=== PATIENT | female | born 1995 | race Caucasian/White ===

== ENCOUNTER 2019-07-10 08:59 | Observation (INO) | payer OTHER, SELFPAY ==
[2019-07-10] VITALS (22 sets, daily range): BP systolic 84–105; BP diastolic 47–64; PULSE 63–90; RESP 16; TEMP 36.6; O2SAT 92–100; BMI 20.2
--- NOTE | 2019-07-10 09:35 | OBADM ---
This patient, Marco Antonio Osman, admitted to the OB room 117 at 0859 for observation for c/o shortness of breath, increased heart rate and dizziness at work. Patient/family oriented to hospital policies and general routines including ID bracelet, bed and alarms, visiting hours, pain management, procedures, bathroom and other care routines, personal items, smoking policy, room service/diet, and visiting hours. Patient/Family are encouraged to report perceived risks to care and to ask questions if they do not understand what they are told or what they should do.
[2019-07-10] MEDS: ONDANSETRON HCL ODT 4 MG TABLET PO (10:47)
--- NOTE | 2019-07-10 10:55 | PM.OBTRLD ---
OB - Triage/Final Diagnosis Visit Information Date of evaluation: 07/10/19 Reason for evaluation: other (tachycardia) Evaluation Vital signs: Vital Signs - 24 hr 07/10/19 09:25 07/10/19 09:27 07/10/19 09:32 Pulse Rate 80 Blood Pressure 84/54 L Pulse Oximetry 99 99 07/10/19 09:37 07/10/19 09:42 07/10/19 09:47 Pulse Rate Blood Pressure Pulse Oximetry 97 98 99 07/10/19 09:52 07/10/19 09:57 07/10/19 10:00 Pulse Rate 82 Blood Pressure 85/47 L Pulse Oximetry 100 100 07/10/19 10:02 07/10/19 10:07 07/10/19 10:12 Pulse Rate Blood Pressure Pulse Oximetry 100 100 100 07/10/19 10:17 07/10/19 10:22 07/10/19 10:27 Pulse Rate Blood Pressure Pulse Oximetry 100 100 100 07/10/19 10:32 07/10/19 10:36 07/10/19 10:37 Pulse Rate Blood Pressure Pulse Oximetry 100 92 100 07/10/19 10:38 07/10/19 10:43 07/10/19 10:48 Pulse Rate 80 Blood Pressure 105/64 Pulse Oximetry 100 100 100
[2019-07-10 11:09] LABS: Influenza Control Positive
== END 2019-07-10 11:30 | disposition home or self-care (01) ==
PROVIDERS: Admitting Provider Obstetrics & Gynecology; PCP Internal Medicine; Visit Provider Obstetrics & Gynecology
DX: O26.892 Other specified pregnancy related conditions, second trimester (principal); R00.0 Tachycardia, unspecified; Z3A.22 22 weeks gestation of pregnancy
CPT/HCPCS: 87804; A9270; G0378; G0379

== ENCOUNTER 2019-09-11 10:11 | Observation (INO) | payer OTHER, SELFPAY ==
[2019-09-11 11:04] VITALS: BP 99/62; PULSE 77
--- NOTE | 2019-09-11 11:04 | PC.NURSE ---
Contractions noted on NST. Pt states she started having contractions yesterday. Did have intercourse last night. Pt up to void and water and juice brought in to orally hydrate.
--- NOTE | 2019-09-11 12:23 | PC.NURSE ---
Dr. Loulou Hernadez returned page and informed of contractions on NST that initially seemed to improve with oral hydration and laying on side. Pt states her contractions started yesterday. Did have intercourse last night. states he just saw her in the office this morning and pt had an ultrasound with good cervical length. Order received for [place]. NO SVE to be done since cervix was long on U/S.
[2019-09-11 12:26] VITALS: BP 95/61; PULSE 83
[2019-09-11 12:42] VITALS: BP 103/64; PULSE 79
[2019-09-11] MEDS: TERBUTALINE SULFATE 1 MG/ML VIAL 0.25 MG SUB-Q (12:43)
[2019-09-11 12:45] VITALS: BMI 23.3
--- NOTE | 2019-09-11 12:45 | OBADM ---
This patient, Marco Antonio Osman, admitted to the OB room 119 at 1011 for observation due to unresolved contractions during NST. Patient/family oriented to hospital policies and general routines including ID bracelet, bed and alarms, visiting hours, pain management, procedures, bathroom and other care routines, personal items, smoking policy, room service/diet, and visiting hours. Patient/Family are encouraged to report perceived risks to care and to ask questions if they do not understand what they are told or what they should do.
[2019-09-11 13:01] VITALS: BP 124/67; PULSE 117
[2019-09-11 14:37] VITALS: BP 94/50; PULSE 99
[2019-09-11 15:01] VITALS: BP 93/46; PULSE 95
[2019-09-11 15:06] LABS: Add Urine Microscopic? YES; Appearance Urine Clear (Clear); Bacteria Urine Trace /hpf; Bilirubin Urine Negative (Negative); Blood Urine Negative (Negative); Color Urine Straw (Yellow); Glucose Urine UA Negative (Negative); Ketones Urine Trace mg/dL (Negative); Leukocyte Esterase Ur Negative LEU/UL (Negative); Mucus Urine Rare /lpf; Nitrate Urine Negative (Negative); Protein Urine Negative (Negative); RBC Urine 0-2 /hpf (0-2); Specific Grav Ur 1.006 (1.001-1.035); Squamous Epithelial Cell Urine Rare /hpf (Few); Urobilinogen Urine Negative mg/dL (<2.0); WBC Urine 0-3 /hpf
--- NOTE | 2019-09-16 13:24 | PM.OBTRLD ---
OB - Triage/Final Diagnosis Visit Information Reason for evaluation: threatened labor Evaluation Laboratory results: Laboratory Tests 09/11/19 14:44 Urine Color Straw Urine Appearance Clear Urine pH 6.0 Ur Specific [place] 1.006 Urine Protein Negative Urine Glucose (UA) Negative Urine Ketones Trace Ur Blood (Man) Negative Urine Nitrate Negative Urine Bilirubin Negative Urine Urobilinogen Negative Leukocyte Esterase Rfl Negative Urine RBC 0-2 Urine WBC 0-3 Ur Squamous Epith Cells Rare Urine Bacteria Trace Urine Mucus Rare
== END 2019-09-11 15:40 | disposition home or self-care (01) ==
PROVIDERS: Admitting Provider Obstetrics & Gynecology; PCP Internal Medicine; Visit Provider Obstetrics & Gynecology
DX: O47.03 False labor before 37 completed weeks of gestation, third trimester (principal); Z3A.33 33 weeks gestation of pregnancy
CPT/HCPCS: 81001; 96372; G0378; G0379; J3105

== ENCOUNTER 2019-09-14 20:40 | Observation (INO) | payer OTHER, SELFPAY ==
--- NOTE | 2019-09-14 20:40 | OBADM ---
This patient, Marco Antonio Osman, admitted to the OB room OB Post 116 for observation. Patient/family oriented to hospital policies and general routines including ID bracelet, bed and alarms, visiting hours, pain management, procedures, bathroom and other care routines, personal items, smoking policy, room service/diet, and visiting hours. Patient/Family are encouraged to report perceived risks to care and to ask questions if they do not understand what they are told or what they should do.
[2019-09-14 21:03] VITALS: BP 117/78; PULSE 98
[2019-09-14 21:15] VITALS: BP 107/68; PULSE 94
[2019-09-14 21:30] VITALS: BP 113/65; PULSE 88
[2019-09-14] MEDS: BETAMETHASONE SOD PHOS/ACETATE 30 MG/5 ML VIAL 12 MG IM (21:36)
[2019-09-14] MEDS: NIFEdipine 10 MG CAPSULE 20 MG PO (21:36)
[2019-09-14 21:45] VITALS: BP 112/67; PULSE 101; BMI 24.5
[2019-09-14] MEDS: LACTATED RINGERS 1,000 ML 999 ML IV CONT (21:56)
[2019-09-14 22:28] LABS: Fetal Fibronectin Negative
--- NOTE | 2019-09-16 10:40 | PM.OBTRLD ---
OB - Triage/Final Diagnosis Visit Information Date of evaluation: 09/14/19 Reason for evaluation: threatened labor Evaluation Cervical dilation (cm): 1 Cervical effacement (%): 0 Laboratory results: Laboratory Tests 09/14/19 21:35 Fibronectin Negative
== END 2019-09-14 23:00 | disposition home or self-care (01) ==
PROVIDERS: Admitting Provider Student in an Organized Health Care Education/Training Program; PCP Internal Medicine; Visit Provider Student in an Organized Health Care Education/Training Program
DX: O47.9 False labor, unspecified (principal); Z3A.00 Weeks of gestation of pregnancy not specified
CPT/HCPCS: 82731; 84112; 96360; 96372; A9270; G0378; G0379; J0702; J7120

== ENCOUNTER 2019-09-15 22:00 | Observation (INO) | payer OTHER, SELFPAY ==
[2019-09-15] MEDS: BETAMETHASONE SOD PHOS/ACETATE 30 MG/5 ML VIAL 12 MG IM (21:50)
[2019-09-15 22:10] VITALS: BP 99/52; PULSE 96
[2019-09-15 22:16] VITALS: BP 112/53; PULSE 103
--- NOTE | 2019-09-15 22:26 | OBADM ---
This patient, Marco Antonio Osman, admitted to the OB room Labor/Delivery/Recovery 118 for observation. Patient/family oriented to hospital policies and general routines including ID bracelet, bed and alarms, visiting hours, pain management, procedures, bathroom and other care routines, personal items, smoking policy, room service/diet, and visiting hours. Patient/Family are encouraged to report perceived risks to care and to ask questions if they do not understand what they are told or what they should do.
[2019-09-15 22:30] VITALS: TEMP 36.8
[2019-09-15] MEDS: NIFEdipine 10 MG CAPSULE 20 MG PO (22:59)
[2019-09-15 23:00] VITALS: BMI 24.5
[2019-09-16 00:11] VITALS: BP 79/42; PULSE 105
[2019-09-16 00:13] VITALS: BP 91/52; PULSE 100
--- NOTE | 2019-09-22 14:58 | PM.OBTRLD ---
OB - Triage/Final Diagnosis Visit Information Reason for evaluation: threatened labor
--- NOTE | 2019-09-26 11:04 | PM.OBTRLD ---
OB - Triage/Final Diagnosis Visit Information Reason for evaluation: threatened labor
== END 2019-09-16 00:30 | disposition home or self-care (01) ==
LOC: ANHOBOP 22:02 → ANHLDR 22:03
PROVIDERS: Admitting Provider Obstetrics & Gynecology; PCP Internal Medicine; Visit Provider Obstetrics & Gynecology
DX: O47.03 False labor before 37 completed weeks of gestation, third trimester (principal); Z3A.32 32 weeks gestation of pregnancy
CPT/HCPCS: 96372; A9270; G0378; G0379; J0702

== ENCOUNTER 2019-10-16 09:36 | Outpatient (RCR) | payer OTHER, SELFPAY ==
[2019-09-18 12:03] VITALS: BP 104/60; PULSE 97
[2019-10-02 11:59] VITALS: BP 101/62; PULSE 89
[2019-10-09 11:57] VITALS: BP 96/58; PULSE 81
[2019-10-16 10:53] VITALS: BP 101/64; PULSE 91
== END 2019-11-03 07:28 | disposition home or self-care (01) ==
LOC: ANHOBOP 09:36
PROVIDERS: PCP Internal Medicine; Visit Provider Obstetrics & Gynecology
DX: O09.293 Supervision of pregnancy with other poor reproductive or obstetric history, third trimester (principal); Z3A.32 32 weeks gestation of pregnancy; Z3A.33 33 weeks gestation of pregnancy; Z3A.34 34 weeks gestation of pregnancy; Z3A.35 35 weeks gestation of pregnancy; Z3A.36 36 weeks gestation of pregnancy
CPT/HCPCS: 59025

== ENCOUNTER 2019-10-20 23:20 | Observation (INO) | payer OTHER, SELFPAY ==
[2019-10-20 23:39] VITALS: BP 107/69; PULSE 88; TEMP 36.9
[2019-10-20 23:45] VITALS: BP 101/66; PULSE 94
[2019-10-21] VITALS: BP 104/62; PULSE 85
[2019-10-21 00:02] VITALS: BMI 23.3
--- NOTE | 2019-10-21 00:02 | OBADM ---
This patient, Marco Antonio Osman, admitted to the OB room Labor/Delivery/Recovery 104 for observation. Patient/family oriented to hospital policies and general routines including ID bracelet, bed and alarms, visiting hours, pain management, procedures, bathroom and other care routines, personal items, smoking policy, room service/diet, and visiting hours. Patient/Family are encouraged to report perceived risks to care and to ask questions if they do not understand what they are told or what they should do.
--- NOTE | 2019-10-21 01:18 | PC.NURSE ---
Updated Dr. White on maternal and assessments. VSS. SVE unchanged. Rom Plus negative. Discharge orders received.
--- NOTE | 2019-10-27 06:42 | PM.OBTRLD ---
OB - Triage/Final Diagnosis Visit Information Date of evaluation: 10/22/19 Reason for evaluation: threatened labor
== END 2019-10-21 01:29 | disposition home or self-care (01) ==
PROVIDERS: Admitting Provider Obstetrics & Gynecology; PCP Internal Medicine; Visit Provider Obstetrics & Gynecology
DX: O47.1 False labor at or after 37 completed weeks of gestation (principal); Z3A.37 37 weeks gestation of pregnancy
CPT/HCPCS: G0378; G0379

== ENCOUNTER 2019-10-21 20:49 | Observation (INO) | payer OTHER, SELFPAY ==
[2019-10-21 21:04] VITALS: BP 106/63; PULSE 90
[2019-10-21 21:05] VITALS: BMI 25.0
[2019-10-21 21:06] VITALS: TEMP 36.3
--- NOTE | 2019-10-21 22:55 | OBADM ---
This patient, Marco Antonio Osman, admitted to the OB room Labor/Delivery/Recovery 107 for observation. Patient/family oriented to hospital policies and general routines including ID bracelet, bed and alarms, visiting hours, pain management, procedures, bathroom and other care routines, personal items, smoking policy, room service/diet, and visiting hours. Patient/Family are encouraged to report perceived risks to care and to ask questions if they do not understand what they are told or what they should do.
--- NOTE | 2019-10-22 08:15 | PM.OBTRLD ---
OB - Triage/Final Diagnosis Visit Information Date of evaluation: 10/21/19 Reason for evaluation: threatened labor Evaluation Vital signs: Vital Signs - 24 hr 10/21/19 21:04 10/21/19 21:06 Temperature 97.3 F L Pulse Rate 90 Blood Pressure 106/63
== END 2019-10-21 22:51 | disposition home or self-care (01) ==
PROVIDERS: Admitting Provider Obstetrics & Gynecology; PCP Internal Medicine; Visit Provider Obstetrics & Gynecology
DX: O47.1 False labor at or after 37 completed weeks of gestation (principal); Z3A.37 37 weeks gestation of pregnancy
CPT/HCPCS: G0378; G0379

== ENCOUNTER 2019-10-31 06:13 | Inpatient (IN) | payer OTHER, SELFPAY ==
[2019-10-31] VITALS (52 sets, daily range): BP systolic 85–134; BP diastolic 41–89; PULSE 61–112; RESP 16–18; TEMP 36.4–36.6; O2SAT 95–100; BMI 24.4
--- NOTE | 2019-10-31 06:45 | PM.IMHP ---
H&P: HPI History of Present Illness Chief complaint: induction Narrative: Marco Antonio Osman is a 24 year old female 101 whose last menstrual period was 12/18/2018, EDC is 11/07/2019, presents at 39 weeks gestation for induction of labor. She has a history of a 30 week loss. This has been uncomplicated with normal testing. She has a history of HSV with no lesions and has been taking Valtrex for the last month. She takes Synthroid and Zoloft. Review of Systems Review of Systems: All systems reviewed & are unremarkable except as noted in HPI and below PMFSH Past Medical History Medical History Ankle fracture, right Anxiety Bipolar disorder Elbow fracture Finger fracture Genital herpes GERD (gastroesophageal reflux disease) History of stillbirth At 7.5 weeks, emergency needed but not performed Skin cancer Thyroid cancer Toe fracture UTI (urinary tract infection) Wrist fracture Surgical History Surgical History History of removal of skin mole History of thyroidectomy Total, due to thyroid CA Social History Social History Second hand tobacco smoke exposure: Yes Additional smoking assessment comments: 1PPD x 11 years Gender identity (if verbalized by the patient): Female Meds Home Medications and Allergies Home Medications Medication Instructions Recorded Confirmed Type famotidine [Pepcid] 20 mg PO BID 15 Days #30 tablet 03/23/19 10/21/19 Rx Colace Clear 50 mg PO BID 07/10/19 10/21/19 History PNV cmb#95-ferrous fumarate-FA 1 tablet PO DAILY 07/10/19 10/21/19 History [] levothyroxine 175 mcg PO DAILY 07/10/19 10/21/19 History sertraline 25 mg PO DAILY 07/10/19 10/21/19 History valacyclovir 500 mg PO DAILY 07/10/19 10/21/19 History ergocalciferol (vitamin D2) 1,250 mcg PO WEEKLY 09/11/19 10/21/19 History [Vitamin D2] Allergies Allergy/AdvReac Type Severity Reaction Status Date / Time Penicillins AdvReac Mild VOMITING Verified 10/21/19 00:00 Exam Const: General: no acute distress Eyes: General: appearance normal, both eyes and all related structures Neck: Neck: supple and no JVD Thyroid: thyroid normal Resp: Effort & Inspection: normal respiratory effort Auscultation: clear to auscultation bilaterally Cardio: Rate: regular rate Rhythm: regular rhythm GI: Inspection: normal to inspection ( Gravid soft uterus) : Speculum Exam - Cervix: normal appearance of the cervix ( cervix 3.5/75/1. AROM clear. FHTs were reassuring) Skin: General skin exam: no rashes or lesions noted Extrem: General: normal to inspection and no edema Psych: Mental Status: mental status grossly normal Affect: normal affect Assessment and Plan Additional Plan impression: Term with favorable cervix and history of demise Plan: Medical vaginal labor. Spontaneous vaginal delivery is expected. She has an epidural candidate
[2019-10-31 07:19] LABS: Basophils Absolute Auto 0.1 K/mm3 (0.0-0.1); Basophils Percent Auto 0.4 % (0.2-1.2); Eosinophils Absolute Auto 0.1 K/mm3 (0-0.3); Eosinophils Percent Auto 0.7 % (0-4.4); Hematocrit 30.9 % (37.0-47.0); Hemoglobin 10.3 g/dL (12.0-15.0); Immature Granulocyte Absolute 0.05 K/mm3 (0.00-0.031); Immature Granulocyte Percent A 0.4 % (0-0.5); Lymphocytes Absolute Auto 3.36 K/mm3 (0.9-3.2); Lymphocytes Percent Auto 30.1 % (18.3-44.2); Mean Corpuscular HGB Conc 33.3 g/dl (32-36); Mean Corpuscular Hemoglobin 31.6 pg (26-34); Mean Corpuscular Volume 94.8 fl (80-100); Mean Platelet Volume 11.3 fl (7.4-10.4); Monocytes Percent Auto 8.8 % (2.6-8.5); Neutrophils Absolute Auto 6.7 K/mm3 (1.3-6.7); Neutrophils Percent Auto 59.6 % (45.5-73.1); Platelet Count Result 263 k/mm3 (150-375); Red Blood Count 3.26 M/mm3 (4.2-5.4); Red Cell Distribution Width 12.7 % (11.5-14.5); White Blood Count 11.2 K/mm3 (4.5-10.0)
[2019-10-31] MEDS: LACTATED RINGERS 1,000 ML 125 ML IV CONT ×4 (07:26→11:22)
[2019-10-31] MEDS: OXYTOCIN 30 UNITS/NS 500 ML 30 UNITS/500 ML BAG IV CONT (07:30)
--- NOTE | 2019-10-31 07:30 | LDADM ---
This patient, Marco Antonio Osman, was admitted to Labor/Delivery/Recovery 104 on 10/31/19 at 06:13. Plans for labor, pain management and were discussed with patient. Patient/family oriented to hospital policies and general routines including ID bracelet, bed and alarms, visiting hours, pain management, procedures, bathroom and other care routines, personal items, smoking policy, room service/diet and guest tray routines, infant security routines, and visiting hours. Patient/Family are encouraged to report perceived risks to care and to ask questions if they do not understand what they are told or what they should do. See OBIX for further documentation.
[2019-10-31] MEDS: ONDANSETRON INJ 4 MG/2 ML VIAL IV PUSH (09:14)
[2019-10-31 09:43] LABS: Amphetamine Screen Urine Negative (Negative); Barbiturate Screen Urine Negative (Negative); Benzodiazepines Screen Urine Negative (Negative); Cannabinoid Screen Urine Negative (Negative); Cocaine Screen Urine Negative (Negative); Methadone Screen Urine Negative (Negative); Opiate Screen Urine Negative (Negative); Phencyclidine Screen Urine Negative (Negative)
--- NOTE | 2019-10-31 09:49 | WPDANESEPP ---
Anes - Eval Pre Procedure Procedure: labor epidural Date/Time: 10/31/19 09:49 Surgeon: leighann frazier Preop Diagnosis: pain during labor Pre Op Diagnosis: induction Patient Data Age: 24 Gender: F Height: 1.59 m Weight: 61.5 kg Last Vital Signs Temp 36.5 C 10/31/19 07:30 Pulse 74 10/31/19 09:30 BP 96/57 L 10/31/19 09:30 Allergies Allergy/AdvReac Type Severity Reaction Status Date / Time Penicillins AdvReac Mild VOMITING Verified 10/21/19 00:00 Home Medications Medication Instructions Recorded Confirmed Type famotidine [Pepcid] 20 mg PO BID 15 Days #30 tablet 03/23/19 10/31/19 Rx Colace Clear 50 mg PO BID 07/10/19 10/31/19 History PNV cmb#95-ferrous fumarate-FA 1 tablet PO DAILY 07/10/19 10/31/19 History [] levothyroxine 175 mcg PO DAILY 07/10/19 10/31/19 History sertraline 25 mg PO DAILY 07/10/19 10/31/19 History valacyclovir 500 mg PO DAILY 07/10/19 10/31/19 History ergocalciferol (vitamin D2) 1,250 mcg PO WEEKLY 09/11/19 10/31/19 History [Vitamin D2] Laboratory Tests 10/31/19 10/31/19 10/31/19 07:11 07:11 07:11 WBC 11.2 K/mm3 H K/mm3 (4.5-10.0) RBC 3.26 M/mm3 L M/mm3 (4.2-5.4) Hgb 10.3 g/dL L g/dL (12.0-15.0) Hct 30.9 % L % (37.0-47.0) MCV 94.8 fl fl (80-100) MCH 31.6 pg pg (26-34) MCHC 33.3 g/dl g/dl (32-36) RDW 12.7 % % (11.5-14.5) Plt Count 263 k/mm3 k/mm3 (150-375) MPV 11.3 fl H fl (7.4-10.4) Immature Gran % (Auto) 0.4 % % (0-0.5) Neut % (Auto) 59.6 % % (45.5-73.1) Lymph % (Auto) 30.1 % % (18.3-44.2) [place] % (Auto) 8.8 % H % (2.6-8.5) Eos % (Auto) 0.7 % % (0-4.4) Baso % (Auto) 0.4 % % (0.2-1.2) Lymph # (Auto) 3.36 K/mm3 H K/mm3 (0.9-3.2) [place] # (Auto) 1.0 K/mm3 H K/mm3 (0.1-0.6) Eos # (Auto) 0.1 K/mm3 K/mm3 (0-0.3) Baso # (Auto) 0.1 K/mm3 K/mm3 (0.0-0.1) Abs Immat Gran (auto) 0.05 K/mm3 H K/mm3 (0.00-0.031) Absolute Neuts (auto) 6.7 K/mm3 K/mm3 (1.3-6.7) Absolute Nucleated RBC 0.0 K/mm3 K/mm3 (0.0-0.012) Nucleated RBC % 0.0 % % (0.0-0.2) Urine Opiates Screen Urine Methadone Screen Ur Barbiturates Screen Ur Phencyclidine Scrn Ur Amphetamine Screen U Benzodiazepines Scrn Urine Cocaine Screen U Cannabinoids Screen RPR Pending Blood Type A Positive Antibody Screen Negative 10/31/19 09:11 WBC RBC Hgb Hct MCV MCH MCHC RDW Plt Count MPV Immature Gran % (Auto) Neut % (Auto) Lymph % (Auto) [place] % (Auto) Eos % (Auto) Baso % (Auto) Lymph # (Auto) [place] # (Auto) Eos # (Auto) Baso # (Auto) Abs Immat Gran (auto) Absolute Neuts (auto) Absolute Nucleated RBC Nucleated RBC % Urine Opiates Screen Negative (Negative) Urine Methadone Screen Negative (Negative) Ur Barbiturates Screen Negative (Negative) Ur Phencyclidine Scrn Negative (Negative) Ur Amphetamine Screen Negative (Negative) U Benzodiazepines Scrn Negative (Negative) Urine Cocaine Screen Negative (Negative) U Cannabinoids Screen Negative (Negative) RPR Blood Type Antibody Screen Patient hx anesthesia problems: none Family hx anesthesia problems: none PMFSH Past Medical History Medical History Ankle fracture, right Anxiety Bipolar disorder Elbow fracture Finger fracture Genital herpes GERD (gastroesophageal reflux disease) History of stillbirth At 7.5 weeks, emergency needed but not performed Skin cancer Thyro
--- NOTE | 2019-10-31 10:49 | P.PNOB_ITS ---
OB - PN: Subj Subjective Date/time seen: 10/31/19 10:49 Interval history: cx 6 fhts ok epidural in OB - PN: Obj Data Labs CBC & Chem 7: 10/31/19 07:11 Labs: Laboratory Results - last 24 hr 10/31/19 10/31/19 10/31/19 07:11 07:11 09:11 WBC 11.2 H RBC 3.26 L Hgb 10.3 L Hct 30.9 L MCV 94.8 MCH 31.6 MCHC 33.3 RDW 12.7 Plt Count 263 MPV 11.3 H Immature Gran % (Auto) 0.4 Neut % (Auto) 59.6 Lymph % (Auto) 30.1 [place] % (Auto) 8.8 H Eos % (Auto) 0.7 Baso % (Auto) 0.4 Lymph # (Auto) 3.36 H [place] # (Auto) 1.0 H Eos # (Auto) 0.1 Baso # (Auto) 0.1 Abs Immat Gran (auto) 0.05 H Absolute Neuts (auto) 6.7 Absolute Nucleated RBC 0.0 Nucleated RBC % 0.0 Urine Opiates Screen Negative Urine Methadone Screen Negative Ur Barbiturates Screen Negative Ur Phencyclidine Scrn Negative Ur Amphetamine Screen Negative U Benzodiazepines Scrn Negative Urine Cocaine Screen Negative U Cannabinoids Screen Negative Blood Type A Positive Antibody Screen Negative OB - PN A/P Time Spent With Patient Time: Total time spent is greater than 50% in coordination of care (as documented) at patient's floor/unit and/or counseling patient:
--- NOTE | 2019-10-31 12:02 | PM.OBPRVD ---
OB - Delivery Note Procedure Delivery date: 10/31/19 Procedure: mil/ Intrapartal events: None Induction method: AROM Delivery augmentation: pitocin Delivery monitor: external FHT Route of delivery: Episiotomy description: None Laceration description: None Specimen: No Estimated blood loss (mL): 57 Anesthesia type: Epidural Disposition: floor Baby Date of : 10/31/19 Time of : 11:52 Weeks of gestation at delivery: 39 Infant gender: Male Weight (pounds): 7 Weight (ounces): 4 presentation: vertex position: Right Occiput Anterior Placenta delivery description: Spontaneous cord vessel description: 3 Vessels and Nuchal Cord score one minute: 7 score five minutes: 9
--- NOTE | 2019-10-31 12:03 | PM.DS ---
DS: Admitting Diagnosis Admitting Diagnosis Admitting Diagnosis: term iup DS: Summary Time Spent with Patient Time attestation: Total time spent providing and/or coordinating discharge services: Exam Const: General: no acute distress Eyes: General: appearance normal, both eyes and all related structures Neck: Neck: supple and no JVD Thyroid: thyroid normal Resp: Effort & Inspection: normal respiratory effort Auscultation: clear to auscultation bilaterally Cardio: Rate: regular rate Rhythm: regular rhythm GI: Inspection: non-distended GI Palp: Yes Soft to palpation, No Tenderness to palpation present (GI) and No Guarding due to palpation present (GI) Auscultation: normal bowel sounds : General: Yes bladder normal to palpation External Female Exam: normal external appearance Speculum Exam - Vagina: normal vaginal discharge and No vaginal bleeding Speculum Exam - Cervix: nontender Bimanual exam- vagina & uterus: bladder normal to palpation and No Cervical tenderness present OB/external & speculum: No vaginal bleeding Skin: General skin exam: no rashes or lesions noted Extrem: General: normal to inspection and no edema Psych: Mental Status: mental status grossly normal Affect: normal affect DS: Data Data Completed and Pending Labs on day of discharge: Labs from last 24 hours 10/31/19 10/31/19 10/31/19 09:11 07:11 07:11 WBC RBC Hgb Hct MCV MCH MCHC RDW Plt Count MPV Immature Gran % (Auto) Neut % (Auto) Lymph % (Auto) [place] % (Auto) Eos % (Auto) Baso % (Auto) Lymph # (Auto) [place] # (Auto) Eos # (Auto) Baso # (Auto) Abs Immat Gran (auto) Absolute Neuts (auto) Absolute Nucleated RBC Nucleated RBC % Urine Opiates Screen Negative Urine Methadone Screen Negative Ur Barbiturates Screen Negative Ur Phencyclidine Scrn Negative Ur Amphetamine Screen Negative U Benzodiazepines Scrn Negative Urine Cocaine Screen Negative U Cannabinoids Screen Negative RPR Pending Blood Type A Positive Antibody Screen Negative 10/31/19 07:11 WBC 11.2 H RBC 3.26 L Hgb 10.3 L Hct 30.9 L MCV 94.8 MCH 31.6 MCHC 33.3 RDW 12.7 Plt Count 263 MPV 11.3 H Immature Gran % (Auto) 0.4 Neut % (Auto) 59.6 Lymph % (Auto) 30.1 [place] % (Auto) 8.8 H Eos % (Auto) 0.7 Baso % (Auto) 0.4 Lymph # (Auto) 3.36 H [place] # (Auto) 1.0 H Eos # (Auto) 0.1 Baso # (Auto) 0.1 Abs Immat Gran (auto) 0.05 H Absolute Neuts (auto) 6.7 Absolute Nucleated RBC 0.0 Nucleated RBC % 0.0 Urine Opiates Screen Urine Methadone Screen Ur Barbiturates Screen Ur Phencyclidine Scrn Ur Amphetamine Screen U Benzodiazepines Scrn Urine Cocaine Screen U Cannabinoids Screen RPR Blood Type Antibody Screen Discharge Plan Discharge Discharging Clinician: Nilson Del Angel Anticipated Discharge Date/Time: 11/01/19 12:55 Patient Disposition: Home, Self-Care Activity: as tolerated Diet: regular Discharge Instructions: Education: Mom and Baby Guide Given to: Mother Follow-Up: Call your delivering provider's office for an appointment to be seen in: 4 Weeks Mom and baby should come to the [facility] for the follow-up appointment. Appointment Date/Time: November 03, 2019 at 9:00 am What to expect at your follow-up visit: Physical Assessment Call [phone] if you are unable to keep your appointment time. BREAST CARE: 1. Wear a snug supportive bra. 2. For engorgement discomfort: Breast Feeding: A. Apply warm moist washcloths B. Express milk as needed to relieve engorgement C. Wear loose clothing 3. For sore nipples: A. Identify correct latch-on B. Apply warm moist washcloths before and after nursing C. Air dry nipples after nursing D. May apply Lansinoh cream to nipples PERINEAL CARE: 1. Until bleeding stops,
[2019-10-31] MEDS: OXYTOCIN 30 UNITS/NS 500 ML 30 UNITS/500 ML BAG 125 UNITS IV CONT (12:33)
[2019-10-31 12:38] LABS: Rapid Plasma Reagin Non-Reactive (NonReactive)
[2019-10-31] MEDS: BENZOCAINE 20% AER SPR (*SP) 56 GM CAN 1 SPRAY TOPICAL (13:33)
[2019-10-31] MEDS: IBUPROFEN 600 MG TABLET PO ×2 (15:54→21:58)
--- NOTE | 2019-10-31 17:00 | PC.NURSE ---
Patient transferred to post room #283. Support person present. Oriented to unit, room, information board, rooming in, admission packet and security measures. Patient verbalizes understanding.
[2019-10-31] MEDS: ACETAMINOPHEN 325 MG TABLET 650 MG PO (19:26)
[2019-11-01] MEDS: IBUPROFEN 600 MG TABLET PO (03:29)
[2019-11-01 05:19] LABS: Hemoglobin 8.4 g/dL (12.0-15.0)
--- NOTE | 2019-11-01 07:41 | PM.OBPNVD ---
OB - PN: Subj Subjective Date/time seen: 11/01/19 07:41 Interval history: cx 6 fhts ok epidural in Patient comments: no complaints, pain well controlled and tolerating diet [place] feeding status: exclusively breast feeding Narrative: patient doing well this AM. No complaints. Pain is well controlled. She reports minimal bleeding. She is ambulating and voiding without difficulty. She is tolerating PO. She denies N/V, fever, chills. OB - PN: Obj Data Labs CBC & Chem 7: 11/01/19 03:42 Labs: Laboratory Results - last 24 hr 10/31/19 10/31/19 10/31/19 07:11 07:11 09:11 Hgb Hct Urine Opiates Screen Negative Urine Methadone Screen Negative Ur Barbiturates Screen Negative Ur Phencyclidine Scrn Negative Ur Amphetamine Screen Negative U Benzodiazepines Scrn Negative Urine Cocaine Screen Negative U Cannabinoids Screen Negative RPR Non-reactive Blood Type A Positive Antibody Screen Negative 11/01/19 03:42 Hgb 8.4 L Hct 26.0 L Urine Opiates Screen Urine Methadone Screen Ur Barbiturates Screen Ur Phencyclidine Scrn Ur Amphetamine Screen U Benzodiazepines Scrn Urine Cocaine Screen U Cannabinoids Screen RPR Blood Type Antibody Screen OB - PN A/P Plan day: 1 Plan: routine care Comments: patient doing well H/H stable plan for infant circumcision today continue routine care Time Spent With Patient Time: Total time spent is greater than 50% in coordination of care (as documented) at patient's floor/unit and/or counseling patient: Time with patient: less than 15 minutes Review of Systems Review of Systems: All systems reviewed & are unremarkable except as noted in HPI and below Exam Const: General: comfortable and no acute distress Resp: Effort & Inspection: normal respiratory effort Cardio: Rate: regular rate GI: GI Palp: Yes Soft to palpation and No Tenderness to palpation present (GI) Auscultation: normal bowel sounds Other: fundus firm and below umbilicus. Psych: Affect: normal affect
[2019-11-01] MEDS: POLYSACCHARIDE IRON COMPLEX 150 MG CAPSULE PO (07:53)
[2019-11-01] MEDS: LEVOTHYROXINE SODIUM 100 MCG, LEVOTHYROXINE SODIUM 75 MCG 175 MCG PO (07:54)
[2019-11-01] MEDS: LANOLIN (LANSINOH) 7.5 GM CREAM 1 APPLIC TOPICAL (07:54)
[2019-11-01] MEDS: MULTIVIT/MIN/PREN/FOL AC/IRON TABLET 1 TAB PO (07:54)
[2019-11-01] MEDS: DOCUSATE SODIUM 100 MG CAPSULE PO (07:54)
[2019-11-01 08:00] VITALS: BP 87/47; PULSE 62; RESP 18; TEMP 36
--- NOTE | 2019-11-01 08:15 | WPDANLDPN2 ---
Anes-Prog Note L&D Date/Time: 11/01/19 08:15 Comfortable throughout: labor and delivery Neuraxial method: epidural Epidural/Spinal procedure site: clean & non-tender Neuro status: Neuro function grossly intact. Cardiovascular status: normal Respiratory status: normal Airway patency: baseline Mental status: baseline Post-Op hydration status: normal Vital Signs: Last Vital Signs Temp 97.5 F L 10/31/19 19:15 Pulse 65 10/31/19 19:15 Resp 18 10/31/19 19:15 BP 85/50 L 10/31/19 19:15 Pulse Ox 100 10/31/19 19:15 Post-procedural complaints: none Patient feedback: States received no relief from epidural.
[2019-11-03 09:10] VITALS: BP 122/79; PULSE 93; RESP 12; TEMP 36.8
== END 2019-11-01 13:53 | disposition home or self-care (01) | DRG 806 ==
LOC: ANHOB2 11-01 13:05 → ANHLDR 11-04 10:17 → ANHOB2 11-04 10:17
PROVIDERS: Admitting Provider Obstetrics & Gynecology; PCP Internal Medicine; Visit Provider Student in an Organized Health Care Education/Training Program
DX: O69.81X0 Labor and delivery complicated by cord around neck, without compression, not applicable or unspecified (principal); O98.52 Other viral diseases complicating childbirth; Z37.0 Single live birth; Z3A.39 39 weeks gestation of pregnancy; O36.8330 Maternal care for abnormalities of the fetal heart rate or rhythm, third trimester, not applicable or unspecified; B00.9 Herpesviral infection, unspecified; O99.344 Other mental disorders complicating childbirth; F31.9 Bipolar disorder, unspecified; F41.9 Anxiety disorder, unspecified; O99.62 Diseases of the digestive system complicating childbirth; K21.9 Gastro-esophageal reflux disease without esophagitis; O99.334 Smoking (tobacco) complicating childbirth; F17.210 Nicotine dependence, cigarettes, uncomplicated; Z85.850 Personal history of malignant neoplasm of thyroid; Z85.828 Personal history of other malignant neoplasm of skin
CPT/HCPCS: 36415; 80307; 85014; 85018; 85025; 86592; 86850; 86900; 86901; A9270; J2405; J2590; J2795; J7120

== ENCOUNTER 2019-11-11 13:00 | Inpatient (IN) | payer OTHER, SELFPAY ==
[2019-11-11] VITALS (11 sets, daily range): BP systolic 79–112; BP diastolic 41–71; PULSE 68–119; RESP 14–22; TEMP 37.1–39.3; O2SAT 94–100; BMI 23.1
--- NOTE | ~2019-11-11 | XR_ITS ---
EXAMINATION: XR chest 2V DATE: 11/11/2019 14:10 INDICATION: Fever. Sepsis. TECHNIQUE: Frontal and lateral views of the chest were obtained. COMPARISON: None. FINDINGS: The chest demonstrates clear lungs without pneumonia, pleural effusion, or pneumothorax. Th e heart size is normal. IMPRESSION: 1. No acute cardiopulmonary disease. Reviewed, dictated and finalized at location A.
--- NOTE | ~2019-11-11 | US_ITS ---
EXAMINATION: US pelvic complete DATE: 11/12/2019 10:12 INDICATION: Endometritis. TECHNIQUE: Multiple transabdominal sonographic images of the pelvis were obtained. COMPARISON: CT abdomen and pelvis 11/11/2019 FINDINGS: The uterus measures 13.2 x 7.0 x 8.7 cm. There is no free fluid in the pelvis. The endometrial comple x measures 2.5 cm in thickness with up to 1.3 cm of this thickness being fluid in the endometrial cav ity. The right ovary measures 4.1 x 2.4 x 2.1 cm. The left ovary measures 2.9 x 1.2 x 2.1 cm. There i s normal vascular flow in the ovaries. IMPRESSION: 1. Thickened endometrial complex and fluid in the endometrial cavity, consistent with retained produc ts of conception versus endometritis. Reviewed, dictated and finalized at location A. IMPRESSION: 1. Thickened endometrial complex and fluid in the endometrial cavity, consisten t with retained products of conception versus endometritis.
--- NOTE | ~2019-11-11 | CT_ITS ---
EXAMINATION: CT abdomen pelvis w con DATE: 11/11/2019 15:06 INDICATION: Abdominal pain and fever. Recent delivery. TECHNIQUE: Computed tomography (CT) of the abdomen and pelvis was performed without intravenous contr ast. Automated exposure control and iterative reconstruction technique were employed. Exam dose: 174 .95 mGy-cm total exam DLP. COMPARISON: None. FINDINGS: The lung bases are clear. Normal heart size. No pericardial or pleural effusion. The lung bases are clear of infiltrate or co nsolidation. No hepatic, splenic, pancreatic, adrenal or renal space occupying mass lesion is detected. No bile d uct or pancreatic duct dilatation. The gallbladder is present. No urinary tract calculus or hydroureteronephrosis. Normal caliber of the abdominal aorta. No intraperitoneal or retroperitoneal or pelvic mass lesion o r lymphadenopathy. The uterus measures up to 12.4 cm height, up to 7 cm anteroposterior dimension. The central endometri al cavity is filled with fluid and/or retained products of conception, measuring up to almost 1.5 cm maximal anteroposterior dimension. There is some ill-defined enhancement around the endometrium. Ther e is a small amount of air within the endometrial cavity. Endometritis is an additional consideration . There is a wide umbilical hernia with nonobstructed non-strangulated small bowel. Included skeletal structures are unremarkable. IMPRESSION: enlarged uterus with prominent endometrial fluid and/or soft tissue; consider retained products of conception, endometritis Reviewed, dictated and finalized at Location A. Reviewed, dictated and finalized at location B.
--- NOTE | 2019-11-11 13:22 | ED.FEVER ---
HPI - Fever General Chief Complaint: Fever Stated Complaint: , breast sore, fever Time Seen by Provider: 11/11/19 13:22 Source: patient Mode of arrival: ambulatory Limitations: no limitations History of Present Illness HPI Narrative: Patient is a 24-year-old G3, P2 who had an induction and vaginal delivery on October 30 who presents for evaluation of fever of 103 Fahrenheit at home as well as malodorous vaginal discharge and sore breasts. Patient reports that she has noticed a increase in bloody discharge with a malodorous smell since delivery. She has had some mild pelvic pain and cramping. She is not passing large clots. She also reports bilateral breast soreness, redness and warmth. She is breast-feeding, has been pumping around every 3 hours as well. Patient denies dysuria or hematuria. Patient denies nausea or vomiting. No cough, congestion or shortness of breath. Pt OBGYN is Dr. Loulou Hernadez. Related Data Home Medications Medication Instructions Recorded Confirmed PNV cmb#95-ferrous fumarate-FA 1 tablet PO DAILY 07/10/19 10/31/19 [] levothyroxine 175 mcg PO DAILY 07/10/19 10/31/19 ergocalciferol (vitamin D2) 1,250 mcg PO WEEKLY 09/11/19 10/31/19 [Vitamin D2] Allergies Allergy/AdvReac Type Severity Reaction Status Date / Time Penicillins AdvReac Mild VOMITING Verified 11/11/19 13:14 Review of Systems Review of Systems: Narrative: CONSTITUTIONAL: Reports fever and chills EYES: Denies visual changes, redness, or discharge. ENT: Denies rhinorrhea, congestion, sore throat, or otalgia. CARDIOVASCULAR: Denies chest pain, palpitations, or edema. RESPIRATORY: Denies cough or dyspnea. GASTROINTESTINAL: Reports lower pelvic pain, nausea, denies vomiting GENITOURINARY: Denies dysuria or hematuria. Reports malodorous vaginal discharge SKIN: Denies rash or itching. MUSCULOSKELETAL: Denies back pain, joint pain, reports myalgias throughout body NEUROLOGIC: Reports mild headache without numbness or weakness PMF Past Medical History Medical History Ankle fracture, right Anxiety Bipolar disorder Elbow fracture Finger fracture Genital herpes GERD (gastroesophageal reflux disease) History of stillbirth At 7.5 weeks, emergency needed but not performed Skin cancer Thyroid cancer Toe fracture UTI (urinary tract infection) Wrist fracture Surgical History Surgical History History of removal of skin mole History of thyroidectomy Total, due to thyroid CA Family History Family History Other Adopted Unknown family medical history Social History Social History Smoking packs per day: 1 Smoking cigarettes per day: 20.0 Years smoked: 13 Smoking pack-years: 13.00 Smoking status: Current every day smoker Tobacco type: cigarettes Second hand tobacco smoke exposure: Yes Additional smoking assessment comments: Pt has cut down to 0.25 PPD during Substance use: former Gender identity (if verbalized by the patient): Female Sexual Orientation (if Verbalized by the Patient): Straight or Heterosexual Spiritual care concerns: No Exam Narrative: Exam Narrative: GENERAL: Awake, alert, conversant HEAD: Normocephalic, atraumatic. EYES: PERRLA and EOMI. ENT: Nares clear, no rhinorrhea or epistaxis. Mucous membranes moist. NECK: Supple. CHEST: No respiratory distress, breathing even and non labored Breasts: Bilateral breast engorgement, mild erythema of the skin overlying the chest and abdomen, no focal warmth, edema, erythema; No evidence of abscess HEART: Tachycardic rate, sinus rhythm ABDOMEN:Non distended, mildly tender in suprapubic region : Labia majora and minora normal without lesions. Vagina without blood. + cervical motion tenderness. No ad
--- NOTE | 2019-11-11 13:30 | PC.NURSE ---
ERP Dr. Quinones at bedside for assessment.
--- NOTE | 2019-11-11 13:44 | PC.NURSE ---
pt ambulatory with steady gait to restroom to provide urine specimen at this time.
--- NOTE | 2019-11-11 13:49 | ECG_ITS ---
Measurements Intervals [place] Rate: 106 P: 49 AK: 139 QRS: 28 QRSD: 93 T: 48 QT: 299 QTc: 398 Interpretive Statements SINUS TACHYCARDIA POSSIBLE LEFT ATRIAL ENLARGEMENT INCOMPLETE RIGHT BUNDLE BRANCH BLOCK ABNORMAL ECG Electronically Signed On 11-11-2019 14:39:51 CDT by Edgar Solano D.O.
[2019-11-11 14:06] LABS: Basophils Absolute Auto 0.1 K/mm3 (0.0-0.1); Basophils Percent Auto 0.4 % (0.2-1.2); Eosinophils Absolute Auto 0.1 K/mm3 (0-0.3); Eosinophils Percent Auto 0.4 % (0-4.4); Hematocrit 35.3 % (37.0-47.0); Hemoglobin 11.7 g/dL (12.0-15.0); Immature Granulocyte Absolute 0.12 K/mm3 (0.00-0.031); Immature Granulocyte Percent A 0.5 % (0-0.5); Lymphocytes Absolute Auto 1.57 K/mm3 (0.9-3.2); Lymphocytes Percent Auto 6.8 % (18.3-44.2); Mean Corpuscular HGB Conc 33.1 g/dl (32-36); Mean Corpuscular Hemoglobin 31.4 pg (26-34); Mean Corpuscular Volume 94.6 fl (80-100); Mean Platelet Volume 9.6 fl (7.4-10.4); Monocytes Absolute Auto 0.9 K/mm3 (0.1-0.6); Monocytes Percent Auto 3.9 % (2.6-8.5); Neutrophils Absolute Auto 20.3 K/mm3 (1.3-6.7); Platelet Count Result 442 k/mm3 (150-375); Red Blood Count 3.73 M/mm3 (4.2-5.4); Red Cell Distribution Width 13.2 % (11.5-14.5); White Blood Count 23.1 K/mm3 (4.5-10.0)
[2019-11-11 14:13] LABS: Add Urine Microscopic? YES; Appearance Urine Clear (Clear); Bilirubin Urine Negative (Negative); Blood Urine 1+ (Negative); Color Urine Straw (Yellow); Glucose Urine UA Negative (Negative); Ketones Urine Negative (Negative); Leukocyte Esterase Ur 1+ LEU/UL (Negative); Mucus Urine Rare /lpf; Nitrate Urine Negative (Negative); Protein Urine Negative (Negative); RBC Urine 0-2 /hpf (0-2); Squamous Epithelial Cell Urine Occasional /hpf (Few); Urobilinogen Urine Negative mg/dL (<2.0)
[2019-11-11 14:16] LABS: Prothrombin Time 13.2 Seconds (11.1-14.7)
[2019-11-11 14:17] LABS: Lactic Acid Reflex 0.7 mmol/L (0.7-2.1); Partial Thromboplastin Time 36.9 SECONDS (22.3-36.8)
[2019-11-11 14:19] LABS: Lipase 34 U/L (23-300)
[2019-11-11 14:21] LABS: Alanine Aminotransferase 10 U/L (4-35); Albumin Level 4.2 g/dL (3.5-5.1); Alkaline Phosphatase 119 U/L (38-126); Aspartate Amino Transferase 20 U/L (14-36); Bilirubin,Total 1.1 mg/dL (0.2-1.3); Blood Urea Nitrogen 8 mg/dL (7-17); CRP 7.4 mg/dL (<1.0); Calcium 8.6 mg/dL (8.4-10.2); Carbon Dioxide 22 mmol/L (22-30); Chloride 104 mmol/L (98-107); Estimated CRCL calculation 84 ml/min; Estimated Glomerular Filt Rate > 60; Glucose 88 mg/dL (65-105); Potassium 3.4 mmol/L (3.4-5.0); Sodium 135 mmol/L (137-145)
--- NOTE | 2019-11-11 14:29 | PC.NURSE ---
lab at bedside to collect blood cultures
[2019-11-11] MEDS: SODIUM CHLORIDE 0.9% IV 1,800 ML/1,800 ML ML 999 ML IV CONT (15:49)
[2019-11-11] MEDS: SODIUM CHLORIDE 0.9% IV 1,000 ML 125 ML IV CONT (16:28)
[2019-11-11] MEDS: CLINDAMYCIN 600 MG/NS 50 ML 600 MG/50 ML PIGGYBACK 100 MG IVPB ×2 (16:29→23:08)
[2019-11-11] MEDS: GENTAMICIN 60 MG/50 ML NS 60 MG/50 ML BAG 100 MG IVPB (16:47)
--- NOTE | 2019-11-11 17:01 | PC.NURSE ---
cefepime 0.5 not given - see valentin- rn gave 1g already within the hour.
--- NOTE | 2019-11-11 17:50 | PC.NURSE ---
pt ambulatory with steady gait to restroom at this time. RN stood by for observation. Pt returned to bed and is currently pumping- .
--- NOTE | 2019-11-11 18:29 | PC.NURSE ---
pt transported with ns @125ml / hr.
--- NOTE | 2019-11-11 18:40 | PC.NURSE ---
This patient, Marco Antonio Osman, was admitted to Medical Room 341-01. Patient/family oriented to hospital policies and general routines including ID bracelet, bed and alarms, visiting hours, pain management, procedures, bathroom and other care routines, personal items, smoking policy, room service/diet, and visiting hours. Valuables list has been completed. Information on how to activate the Rapid Response Team has been discussed. Patient/Family are encouraged to report perceived risks to care and to ask questions if they do not understand what they are told or what they should do.
[2019-11-11] MEDS: MORPHINE SULFATE 4 MG/ML INJ 2 MG IV PUSH (19:45)
[2019-11-11] MEDS: ACETAMINOPHEN 500 MG TABLET 1000 MG PO (19:55)
--- NOTE | 2019-11-11 20:52 | PM.IMHP ---
H&P: HPI History of Present Illness Chief complaint: Endometritis/Sepsis Narrative: 24 y/o PPD#11 after a vaginal delivery of a boy who is and doing well. Has had some engorgement of breasts, no redness. Has intermittent stabbing pains in the low abdomen and foul-smelling lochia, per her report. Had a fever at home this morning and was instructed to come to the ED. No rashes. No cough, SOB, loss of taste/smell, nasal congestion. No edema in lower extremeties. Review of Systems Review of Systems: All systems reviewed & are unremarkable except as noted in HPI and below PMFSH Past Medical History Medical History Ankle fracture, right Anxiety Bipolar disorder Elbow fracture Finger fracture Genital herpes GERD (gastroesophageal reflux disease) History of stillbirth At 7.5 weeks, emergency needed but not performed Skin cancer Thyroid cancer Toe fracture UTI (urinary tract infection) Wrist fracture Surgical History Surgical History History of removal of skin mole History of thyroidectomy Total, due to thyroid CA Family History Family History Other Adopted Unknown family medical history Social History Social History Smoking packs per day: 0.5 Smoking cigarettes per day: 10.0 Years smoked: 13 Smoking pack-years: 6.50 Smoking status: Current every day smoker Tobacco type: cigarettes Second hand tobacco smoke exposure: Yes Additional smoking assessment comments: Pt has cut down to 0.25 PPD during Alcohol intake: former Substance use: former Gender identity (if verbalized by the patient): Female Sexual Orientation (if Verbalized by the Patient): Straight or Heterosexual Spiritual care concerns: No Meds Home Medications and Allergies Home Medications Medication Instructions Recorded Confirmed Type PNV cmb#95-ferrous fumarate-FA 1 tablet PO DAILY 07/10/19 11/11/19 History [] levothyroxine 175 mcg PO DAILY 07/10/19 11/11/19 History ergocalciferol (vitamin D2) 1,250 mcg PO WEEKLY 09/11/19 11/11/19 History [Vitamin D2] docusate sodium [Colace] 100 mg PO DAILY 11/11/19 11/11/19 History omeprazole 40 mg PO BID 11/11/19 11/11/19 History valacyclovir 500 mg PO DAILY 11/11/19 11/11/19 History Allergies Allergy/AdvReac Type Severity Reaction Status Date / Time Penicillins AdvReac Mild VOMITING Verified 11/11/19 13:14 Vital Signs Vital Signs - 24 hr 11/11/19 13:08 11/11/19 13:14 11/11/19 13:20 Temperature 38.3 C H 38.3 C H Pulse Rate 119 H 114 H Respiratory Rate 22 H 22 H 22 H Blood Pressure 112/71 112/71 Pulse Oximetry 98 99 11/11/19 14:31 11/11/19 15:26 11/11/19 15:53 Temperature Pulse Rate 68 94 80 Respiratory Rate 18 18 18 Blood Pressure 96/61 L 102/62 Pulse Oximetry 99 99 100 11/11/19 16:42 11/11/19 17:39 11/11/19 18:30 Temperature Pulse Rate 82 94 103 H Respiratory Rate 18 22 H 18 Blood Pressure 79/41 L 83/56 L 96/57 L Pulse Oximetry 99 100 100 11/11/19 18:52 Temperature 37.1 C Pulse Rate 94 Respiratory Rate 14 Blood Pressure 93/57 L Pulse Oximetry 100 Exam Const: Orientation/consciousness: patient oriented x3 Other: Well-developed, well-nourished female in no acute distress. Neck: Thyroid: thyroid normal Lymphatic: no lymphadenopathy noted (in neck, axilla or inguinal nodes) Chest: Other: Breasts: engorged, no redness. No axillary adenopathy. noted bilaterally. Resp: Effort & Inspection: normal respiratory effort Auscultation: clear to auscultation bilaterally Cardio: Rate: regular rate Rhythm: regular rhythm Heart sounds: S1 normal heart sound present and S2 normal heart sound present GI: Other: ABD: Soft. Uterine fundus firm and below
[2019-11-12] MEDS: ACETAMINOPHEN 500 MG TABLET 1000 MG PO ×2 (01:47→15:41)
[2019-11-12] MEDS: GENTAMICIN 60 MG/50 ML NS 60 MG/50 ML BAG 100 MG IVPB ×3 (01:48→17:17)
[2019-11-12] MEDS: SODIUM CHLORIDE 0.9% IV 1,000 ML 125 ML IV CONT ×2 (01:52→11:35)
[2019-11-12 05:42] LABS: Basophils Absolute Auto 0.1 K/mm3 (0.0-0.1); Basophils Percent Auto 0.4 % (0.2-1.2); Eosinophils Absolute Auto 0.2 K/mm3 (0-0.3); Eosinophils Percent Auto 1.7 % (0-4.4); Hematocrit 30.3 % (37.0-47.0); Hemoglobin 9.7 g/dL (12.0-15.0); Immature Granulocyte Absolute 0.08 K/mm3 (0.00-0.031); Immature Granulocyte Percent A 0.7 % (0-0.5); Lymphocytes Absolute Auto 1.22 K/mm3 (0.9-3.2); Lymphocytes Percent Auto 10.3 % (18.3-44.2); Mean Corpuscular Hemoglobin 30.2 pg (26-34); Mean Corpuscular Volume 94.4 fl (80-100); Mean Platelet Volume 9.2 fl (7.4-10.4); Monocytes Absolute Auto 0.4 K/mm3 (0.1-0.6); Monocytes Percent Auto 3.7 % (2.6-8.5); Neutrophils Absolute Auto 9.8 K/mm3 (1.3-6.7); Neutrophils Percent Auto 83.2 % (45.5-73.1); Platelet Count Result 320 k/mm3 (150-375); Red Blood Count 3.21 M/mm3 (4.2-5.4); Red Cell Distribution Width 13.2 % (11.5-14.5); White Blood Count 11.8 K/mm3 (4.5-10.0)
[2019-11-12 05:45] LABS: Blood Urea Nitrogen 6 mg/dL (7-17); Calcium 7.9 mg/dL (8.4-10.2); Carbon Dioxide 19 mmol/L (22-30); Chloride 111 mmol/L (98-107); Estimated CRCL calculation 84 ml/min; Estimated Glomerular Filt Rate > 60; Glucose 87 mg/dL (65-105); Potassium 3.4 mmol/L (3.4-5.0); Sodium 136 mmol/L (137-145)
[2019-11-12 06:00] VITALS: BP 101/56; PULSE 82; RESP 16; TEMP 36.9; O2SAT 100
--- NOTE | 2019-11-12 06:59 | PM.OBPNVD ---
OB - PN: Subj Subjective Date/time seen: 11/12/19 06:59 Interval history: feeling better/bleeding OB - PN: Obj Data Labs CBC & Chem 7: 11/12/19 05:13 11/12/19 05:13 Labs: Laboratory Results - last 24 hr 11/11/19 11/11/19 11/11/19 13:56 13:56 13:56 WBC 23.1 H RBC 3.73 L Hgb 11.7 L D Hct 35.3 L MCV 94.6 MCH 31.4 MCHC 33.1 RDW 13.2 Plt Count 442 H D MPV 9.6 Immature Gran % (Auto) 0.5 Neut % (Auto) 88.0 H Lymph % (Auto) 6.8 L [place] % (Auto) 3.9 Eos % (Auto) 0.4 Baso % (Auto) 0.4 Lymph # (Auto) 1.57 [place] # (Auto) 0.9 H Eos # (Auto) 0.1 Baso # (Auto) 0.1 Abs Immat Gran (auto) 0.12 H Absolute Neuts (auto) 20.3 H Absolute Nucleated RBC 0.0 Nucleated RBC % 0.0 PT 13.2 INR 1.0 APTT 36.9 H Sodium 135 L Potassium 3.4 Chloride 104 Carbon Dioxide 22 BUN 8 Creatinine 0.70 Estim Creat Clear Calc 84 Estimated GFR > 60 Glucose 88 Lactic Acid Calcium 8.6 Total Bilirubin 1.1 AST 20 ALT 10 Alkaline Phosphatase 119 C-Reactive Protein 7.4 H Total Protein 7.0 Albumin 4.2 Lipase Urine Color Urine Appearance Urine pH Ur Specific [place] Urine Protein Urine Glucose (UA) Urine Ketones Ur Blood (Man) Urine Nitrate Urine Bilirubin Urine Urobilinogen Leukocyte Esterase Rfl Urine RBC Urine WBC Ur Squamous Epith Cells Urine Mucus Trichomonas Direct ID 11/11/19 11/11/19 11/11/19 13:56 13:56 13:57 WBC RBC Hgb Hct MCV MCH MCHC RDW Plt Count MPV Immature Gran % (Auto) Neut % (Auto) Lymph % (Auto) [place] % (Auto) Eos % (Auto) Baso % (Auto) Lymph # (Auto) [place] # (Auto) Eos # (Auto) Baso # (Auto) Abs Immat Gran (auto) Absolute Neuts (auto) Absolute Nucleated RBC Nucleated RBC % PT INR APTT Sodium Potassium Chloride Carbon Dioxide BUN Creatinine Estim Creat Clear Calc Estimated GFR Glucose Lactic Acid 0.7 Calcium Total Bilirubin AST ALT Alkaline Phosphatase C-Reactive Protein Total Protein Albumin Lipase 34 Urine Color Straw Urine Appearance Clear Urine pH 7.0 Ur Specific [place] 1.010 Urine Protein Negative Urine Glucose (UA) Negative Urine Ketones Negative Ur Blood (Man) 1+ H Urine Nitrate Negative Urine Bilirubin Negative Urine Urobilinogen Negative Leukocyte Esterase Rfl 1+ H Urine RBC 0-2 Urine WBC 7-9 H Ur Squamous Epith Cells Occasional Urine Mucus Rare Trichomonas Direct ID 11/11/19 11/12/19 11/12/19 14:17 05:13 05:13 WBC 11.8 H RBC 3.21 L Hgb 9.7 L Hct 30.3 L MCV 94.4 MCH 30.2 MCHC 32.0 RDW 13.2 Plt Count 320 MPV 9.2 Immature Gran % (Auto) 0.7 H Neut % (Auto) 83.2 H Lymph % (Auto) 10.3 L [place] % (Auto) 3.7 Eos % (Auto) 1.7 Baso % (Auto) 0.4 Lymph # (Auto) 1.22 [place] # (Auto) 0.4 Eos # (Auto) 0.2 Baso # (Auto) 0.1 Abs Immat Gran (auto) 0.08 H Absolute Neuts (auto) 9.8 H Absolute Nucleated RBC 0.0 Nucleated RBC % 0.0 PT INR APTT Sodium 136 L Potassium 3.4 Chloride 111 H Carbon Dioxide 19 L BUN 6 L Creatinine 0.70 Estim Creat Clear Calc 84 Estimated GFR > 60 Glucose 87 Lactic Acid Calcium 7.9 L Total Bilirubin AST ALT Alkaline Phosphatase C-Reactive Protein Total Protein Albumin Lipase Urine Color Urine Appearance Urine pH Ur Specific [place] Urine Protein Urine Glucose (UA) Urine Ketones Ur Blood (Man) Urine Nitrate Urine Bilirubin Urine Urobilinogen Leukocyte Esterase Rfl Urine RBC Urine WBC Ur Squamous Epith Cells Urine Mucus Trichomonas Direct ID Negative
[2019-11-12] MEDS: CLINDAMYCIN 600 MG/NS 50 ML 600 MG/50 ML PIGGYBACK 100 MG IVPB ×2 (08:37→15:43)
[2019-11-12 09:12] VITALS: PULSE 84; RESP 16; O2SAT 100
--- NOTE | 2019-11-12 14:38 | PM.OBPNVD ---
OB - PN: Subj Subjective Date/time seen: 11/12/19 14:38 Interval history: feeling better/bleeding OB - PN: Obj Data Labs CBC & Chem 7: 11/12/19 05:13 11/12/19 05:13 Labs: Laboratory Results - last 24 hr 11/11/19 11/12/19 11/12/19 14:17 05:13 05:13 WBC 11.8 H RBC 3.21 L Hgb 9.7 L Hct 30.3 L MCV 94.4 MCH 30.2 MCHC 32.0 RDW 13.2 Plt Count 320 MPV 9.2 Immature Gran % (Auto) 0.7 H Neut % (Auto) 83.2 H Lymph % (Auto) 10.3 L [place] % (Auto) 3.7 Eos % (Auto) 1.7 Baso % (Auto) 0.4 Lymph # (Auto) 1.22 [place] # (Auto) 0.4 Eos # (Auto) 0.2 Baso # (Auto) 0.1 Abs Immat Gran (auto) 0.08 H Absolute Neuts (auto) 9.8 H Absolute Nucleated RBC 0.0 Nucleated RBC % 0.0 Sodium 136 L Potassium 3.4 Chloride 111 H Carbon Dioxide 19 L BUN 6 L Creatinine 0.70 Estim Creat Clear Calc 84 Estimated GFR > 60 Glucose 87 Calcium 7.9 L Trichomonas Direct ID Negative Imaging Radiologist's impression: Impressions Abdomen/Pelvis CT 11/11/19 15:07 IMPRESSION: enlarged uterus with prominent endometrial fluid and/or soft tissue; consider retained products of conception, endometritis Pelvis Ultrasound 11/12/19 10:28 IMPRESSION: 1. Thickened endometrial complex and fluid in the endometrial cavity, consistent with retained products of conception versus endometritis. OB - PN A/P Plan Comments: ultrasound reviewed proceed with suction d and c in am Time Spent With Patient Time: Total time spent is greater than 50% in coordination of care (as documented) at patient's floor/unit and/or counseling patient:
[2019-11-12 15:55] VITALS: BP 102/68; PULSE 68; RESP 16; TEMP 36.8; O2SAT 100
[2019-11-12 16:52] LABS: Gentamicin Trough 1.2 ug/mL (<1.0)
--- NOTE | 2019-11-12 17:49 | WPDANESEPP ---
Anes - Eval Pre Procedure Procedure: Operation Date: 11/13/19 07:15 Proposed Procedures p Suction Dilation and Curettage - Christian Kate MD Date/Time: 11/12/19 17:49 Pre Op Diagnosis: Endometritis/Sepsis Patient Data Age: 24 Gender: F Height: 5 ft 2 in Weight: 57.2 kg Last Vital Signs Temp 98.2 F 11/12/19 15:55 Pulse 68 11/12/19 15:55 Resp 16 11/12/19 15:55 BP 102/68 11/12/19 15:55 Pulse Ox 100 11/12/19 15:55 Allergies Allergy/AdvReac Type Severity Reaction Status Date / Time Penicillins AdvReac Mild VOMITING Verified 11/11/19 13:14 Home Medications Medication Instructions Recorded Confirmed Type PNV cmb#95-ferrous fumarate-FA 1 tablet PO DAILY 07/10/19 11/11/19 History [] levothyroxine 175 mcg PO DAILY 07/10/19 11/11/19 History ergocalciferol (vitamin D2) 1,250 mcg PO WEEKLY 09/11/19 11/11/19 History [Vitamin D2] docusate sodium [Colace] 100 mg PO DAILY 11/11/19 11/11/19 History omeprazole 40 mg PO BID 11/11/19 11/11/19 History valacyclovir 500 mg PO DAILY 11/11/19 11/11/19 History Laboratory Tests 11/12/19 11/12/19 11/12/19 05:13 05:13 15:52 WBC 11.8 K/mm3 H K/mm3 (4.5-10.0) RBC 3.21 M/mm3 L M/mm3 (4.2-5.4) Hgb 9.7 g/dL L g/dL (12.0-15.0) Hct 30.3 % L % (37.0-47.0) MCV 94.4 fl fl (80-100) MCH 30.2 pg pg (26-34) MCHC 32.0 g/dl g/dl (32-36) RDW 13.2 % % (11.5-14.5) Plt Count 320 k/mm3 k/mm3 (150-375) MPV 9.2 fl fl (7.4-10.4) Immature Gran % (Auto) 0.7 % H % (0-0.5) Neut % (Auto) 83.2 % H % (45.5-73.1) Lymph % (Auto) 10.3 % L % (18.3-44.2) [place] % (Auto) 3.7 % % (2.6-8.5) Eos % (Auto) 1.7 % % (0-4.4) Baso % (Auto) 0.4 % % (0.2-1.2) Lymph # (Auto) 1.22 K/mm3 K/mm3 (0.9-3.2) [place] # (Auto) 0.4 K/mm3 K/mm3 (0.1-0.6) Eos # (Auto) 0.2 K/mm3 K/mm3 (0-0.3) Baso # (Auto) 0.1 K/mm3 K/mm3 (0.0-0.1) Abs Immat Gran (auto) 0.08 K/mm3 H K/mm3 (0.00-0.031) Absolute Neuts (auto) 9.8 K/mm3 H K/mm3 (1.3-6.7) Absolute Nucleated RBC 0.0 K/mm3 K/mm3 (0.0-0.012) Nucleated RBC % 0.0 % % (0.0-0.2) Sodium 136 mmol/L L mmol/L (137-145) Potassium 3.4 mmol/L mmol/L (3.4-5.0) Chloride 111 mmol/L H mmol/L (98-107) Carbon Dioxide 19 mmol/L L mmol/L (22-30) BUN 6 mg/dL L mg/dL (7-17) Creatinine 0.70 mg/dL mg/dL (0.7-1.0) Estim Creat Clear Calc 84 ml/min ml/min Estimated GFR > 60 (59 - ) Glucose 87 mg/dL mg/dL (65-105) Calcium 7.9 mg/dL L mg/dL (8.4-10.2) Gentamicin Trough 1.2 ug/mL ug/mL (<1.0) Patient hx anesthesia problems: none Family hx anesthesia problems: none [facility] Past Medical History Medical History Ankle fracture, right Anxiety Bipolar disorder Elbow fracture Finger fracture Genital herpes GERD (gastroesophageal reflux disease) History of stillbirth At 7.5 weeks, emergency needed but not performed Skin cancer Thyroid cancer Toe fracture UTI (urinary tract infection) Wrist fracture Surgical History Surgical History History of removal of skin mole History of thyroidectomy Total, due to thyroid CA Family History Family History Other Adopted Unknown family medical history Social History Social History Smoking packs per day: 0.5 Smoking cigarettes per day: 10.0 Years smoked: 13 Smoking pack-years: 6.50 Smoking status: Current every day smoker Tobacco type: cigarettes Second hand tobacco smoke exposure: Yes Additi
[2019-11-12 19:58] VITALS: BP 94/56; PULSE 65; RESP 15; TEMP 36.6; O2SAT 100
[2019-11-12 20:00] VITALS: PULSE 65; RESP 15; O2SAT 100
[2019-11-12 20:30] LABS: Gentamicin Peak 3.6 ug/mL (5.0-12.0)
[2019-11-13] VITALS (7 sets, daily range): BP systolic 100–139; BP diastolic 63–80; PULSE 41–62; RESP 12–16; TEMP 36.1–36.2; O2SAT 99–100
[2019-11-13] MEDS: CLINDAMYCIN 600 MG/NS 50 ML 600 MG/50 ML PIGGYBACK 100 MG IVPB (00:33)
[2019-11-13] MEDS: GENTAMICIN SULFATE INJ 120 MG in DEXTROSE 5% 100 ML 100 MG IVPB ×2 (01:10→08:52)
[2019-11-13 06:14] LABS: Estimated CRCL calculation 96 ml/min; Estimated Glomerular Filt Rate > 60
[2019-11-13] MEDS: LACTATED RINGERS 1,000 ML 30 ML IV CONT (06:38)
--- NOTE | 2019-11-13 06:54 | WPDANESEFPP ---
Anes - Eval Final PreProcedure Day of Procedure 11/13/19 06:54 Patient weight: normal Heart: regular rate and rhythm Lungs: clear to auscultation and normal air movement Airway: Mallampati scale class II Neurological: alert and oriented Last oral intake: >/= 8 hours ASA classification: II Emergent: no Anesthetic plan: proceed Anesthesia type and monitoring: general GIVS and LMA Informed Consent: The patient's anesthetic plan and its attendant risks and benefits were discussed with the patient/family/POA. Questions were solicited and answers provided to the satisfaction of the patient/family/POA.
--- NOTE | 2019-11-13 07:28 | PM.PROC ---
Procedure Note - Detailed Date of procedure: 11/13/19 Pre-op diagnosis: Endometritis/Sepsis Surgeon: Christian Kate MD Postop diagnosis: Endometrioid is/retained placenta Procedure: Suction dilatation curettage Findings: Uterus sounded to 10cm. Tissue consistent with retained placenta Anesthesia: IV sedation and local Complications: None EBL: 100cc Description of procedure the patient was prepped and draped in a normal sterile fashion and placed in the dorsal lithotomy position. Under excellent IV sedation weighted speculum was placed in posterior fornix of vagina. Anterior lip of the cervix grasped with a single-tooth tenaculum 2.5cc of 1% xylocaine anesthesia placed at 2, 4, 6, 10:00 a.m. of the cervix. Uterus sounded to 10cm. Serial dilatation with fragmented dilators performed. This was followed by passage of the 10. Suction curette removing a moderate amount of clot and debris. When a good grating sound was heard the procedure was terminated. All sponge, needle, instrument counts were correct. There were no immediate complications
--- NOTE | 2019-11-13 07:32 | PM.DS ---
DS: Admitting Diagnosis Admitting Diagnosis Admitting Diagnosis: Acute inflammatory disease of uterus retained placenta DS: Summary Time Spent with Patient Time attestation: Total time spent providing and/or coordinating discharge services: Exam Const: General: no acute distress Eyes: General: appearance normal, both eyes and all related structures Neck: Neck: supple and no JVD Thyroid: thyroid normal Resp: Effort & Inspection: normal respiratory effort Auscultation: clear to auscultation bilaterally Cardio: Rate: regular rate Rhythm: regular rhythm GI: Inspection: non-distended GI Palp: Yes Soft to palpation, No Tenderness to palpation present (GI) and No Guarding due to palpation present (GI) Auscultation: normal bowel sounds : General: Yes bladder normal to palpation External Female Exam: normal external appearance Speculum Exam - Vagina: normal vaginal discharge and No vaginal bleeding Speculum Exam - Cervix: nontender Bimanual exam- vagina & uterus: bladder normal to palpation and No Cervical tenderness present OB/external & speculum: No vaginal bleeding Skin: General skin exam: no rashes or lesions noted Extrem: General: normal to inspection and no edema Psych: Mental Status: mental status grossly normal Affect: normal affect DS: Data Data Completed and Pending Pending studies at discharge: Pending at discharge 11/13/19 07:26 Surgical [PTH] Routine Labs on day of discharge: Labs from last 24 hours 11/13/19 11/13/19 11/12/19 05:46 05:45 19:23 Creatinine 0.60 L Estim Creat Clear Calc 96 Estimated GFR > 60 Gentamicin Peak 3.6 L Gentamicin Trough Blood Type A Positive Antibody Screen Negative 11/12/19 15:52 Creatinine Estim Creat Clear Calc Estimated GFR Gentamicin Peak Gentamicin Trough 1.2 Blood Type Antibody Screen Preliminary micro results at discharge 11/11/19 14:30 Blood Culture - Preliminary Blood 11/11/19 14:30 Blood Culture - Preliminary Blood Discharge Plan Discharge Attending physician on discharge: Christian Kate Discharging Clinician: Christian Kate Patient Disposition: Home, Self-Care Activity: may shower, no straining and pelvic rest Diet: heart healthy Wound Care Instructions: follow printed instructions Patient Instructions: Antibiotic Form, How to Stop Smoking (DC) Stand Alone Forms: General Discharge Information Follow-up/Referrals: Christian Kate MD [Physician] - Discharge Medications: New hydrocodone-acetaminophen [[place]] 5-325 mg tablet 1 tablet PO Q4H PRN (Reason: pain) Qty: 20 RF: 0 Continued ergocalciferol (vitamin D2) [Vitamin D2] 1,250 mcg (50,000 unit) Capsule 1,250 mcg PO WEEKLY RF: 0 levothyroxine 175 mcg tablet 175 mcg PO DAILY RF: 0 PNV cmb#95-ferrous fumarate-FA [] 28 mg iron- 800 mcg Tablet 1 tablet PO DAILY RF: 0 docusate sodium [Colace] 100 mg Capsule 100 mg PO DAILY RF: 0 omeprazole 40 mg Capsule,Delayed Release(Dr/Ec) 40 mg PO BID RF: 0 valacyclovir 500 mg Tablet 500 mg PO DAILY RF: 0 Date of admission: 11/11/19 15:52 Primary Care Provider: Mary JaneRudy Admitting Provider: Bj Rehman Attending physician on admission: Bj Rehman Condition: Stable
--- NOTE | 2019-11-13 08:13 | SUR.PHASEI ---
[id number] sbar faxed floor notified
[2019-11-13] MEDS: ACETAMINOPHEN 325 MG TABLET 650 MG PO (08:50)
[2019-11-13] MEDS: POLYSACCHARIDE IRON COMPLEX 150 MG CAPSULE PO (08:51)
[2019-11-13] MEDS: MULTIVIT/MIN/PREN/FOL AC/IRON TABLET 1 TAB PO (08:51)
--- NOTE | 2019-11-14 19:06 | WPDANESPN ---
Anes - Prog Note Post-Op Date/Time: 11/14/19 19:06 Cardiovascular status: normal Respiratory status: normal Airway patency: baseline Mental status: baseline Post-Op hydration status: normal Vital Signs: Last Vital Signs Temp 97.1 F L 11/13/19 08:38 Pulse 41 L 11/13/19 08:38 Resp 14 11/13/19 08:38 BP 139/73 11/13/19 08:38 Pulse Ox 100 11/13/19 08:38 Laboratory Tests 11/12/19 05:13 11/13/19 05:45 11/11/19 14:17 C.trachomatis RNA (TMA) Not detected N.gonorrhoeae RNA (TMA) Not detected Microbiology 11/11/19 14:17 Cervix Genital Culture - Final Patient Feedback: Patient satisfied with anesthetic care.
== END 2019-11-13 11:30 | disposition home or self-care (01) | DRG 769 ==
LOC: ANHED 16:04 → ANH3MED 20:22
PROVIDERS: Admitting Provider Obstetrics & Gynecology; Emergency Provider Emergency Medicine; PCP Internal Medicine; Visit Provider Obstetrics & Gynecology
PROC: 10D17ZZ Extraction of Products of Conception, Retained, Via Natural or Artificial Opening (ICD-10-PCS; principal; 2019-11-13 07:15)
DX: O86.12 Endometritis following delivery (principal); O72.2 Delayed and secondary postpartum hemorrhage; O99.335 Smoking (tobacco) complicating the puerperium; F17.210 Nicotine dependence, cigarettes, uncomplicated
CPT/HCPCS: 36415; 71046; 74177; 76856; 80048; 80053; 80170; 81001; 82565; 83605; 83690; 85025; 85610; 85730; 86140; 86850; 86900; 86901; 87040; 87070; 87086; 87088; 87491; 87591; 87808; 88305; 93005; 96361; 96365; 96367; 96375; 99285; A9270; J0131; J0692; J1580; J2250; J2270; J2704; J3010; J3370; J7030; J7120; Q9967

== ENCOUNTER 2021-04-15 01:47 | Emergency (ER) | payer OTHER, SELFPAY ==
[2021-04-15] VITALS (7 sets, daily range): BP systolic 84–115; BP diastolic 50–80; PULSE 60–85; RESP 16–18; TEMP 36.1; O2SAT 99–100
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
[2021-04-15] MEDS: SODIUM CHLORIDE 0.9% IV 1,000 ML 999 ML IV CONT (02:41)
[2021-04-15 02:49] LABS: Basophils Absolute Auto 0.1 K/mm3 (0.0-0.1); Basophils Percent Auto 0.5 % (0.2-1.2); Eosinophils Absolute Auto 0.2 K/mm3 (0-0.3); Eosinophils Percent Auto 2.2 % (0-4.4); Hematocrit 39.1 % (37.0-47.0); Hemoglobin 13.6 g/dL (12.0-15.0); Immature Granulocyte Absolute 0.03 K/mm3 (0.00-0.031); Immature Granulocyte Percent A 0.3 % (0-0.5); Lymphocytes Absolute Auto 2.83 K/mm3 (0.9-3.2); Lymphocytes Percent Auto 29.7 % (18.3-44.2); Mean Corpuscular HGB Conc 34.8 g/dl (32-36); Mean Corpuscular Hemoglobin 32.7 pg (26-34); Mean Platelet Volume 9.7 fl (7.4-10.4); Monocytes Absolute Auto 0.7 K/mm3 (0.1-0.6); Monocytes Percent Auto 7.1 % (2.6-8.5); Neutrophils Absolute Auto 5.7 K/mm3 (1.3-6.7); Neutrophils Percent Auto 60.2 % (45.5-73.1); Platelet Count Result 292 k/mm3 (150-375); Red Blood Count 4.16 M/mm3 (4.2-5.4); Red Cell Distribution Width 11.4 % (11.5-14.5); White Blood Count 9.5 K/mm3 (4.5-10.0)
[2021-04-15 03:02] LABS: Alanine Aminotransferase 13 U/L (4-35); Albumin Level 4.7 g/dL (3.5-5.1); Alkaline Phosphatase 56 U/L (38-126); Anion Gap 14 mmol/L (8-16); Aspartate Amino Transferase 21 U/L (14-36); Bilirubin,Total 0.4 mg/dL (0.2-1.3); Blood Urea Nitrogen 11 mg/dL (7-17); Calcium 9.5 mg/dL (8.4-10.2); Carbon Dioxide 22 mmol/L (22-30); Chloride 101 mmol/L (98-107); Estimated CRCL calculation 95 ml/min; Estimated Glomerular Filt Rate > 60; Glucose 85 mg/dL (65-110); Potassium 3.4 mmol/L (3.4-5.0); Sodium 137 mmol/L (137-145)
[2021-04-15 05:22] LABS: Add Urine Microscopic? YES; Appearance Urine Clear (Clear); Bilirubin Urine Negative (Negative); Blood Urine 2+ (Negative); Color Urine Yellow (Yellow); Glucose Urine UA Negative (Negative); Ketones Urine Negative (Negative); Leukocyte Esterase Ur 2+ LEU/UL (Negative); Mucus Urine Rare /lpf; Nitrate Urine Negative (Negative); Protein Urine Negative (Negative); RBC Urine 0-2 /hpf (0-2); Specific Grav Ur 1.011 (1.001-1.035); Squamous Epithelial Cell Urine Rare /hpf (Few); Urobilinogen Urine Negative mg/dL (<2.0); WBC Urine 16-20 /hpf
[2021-04-15] MEDS: LACTATED RINGERS 1,000 ML 125 ML IV CONT (05:33)
== END 2021-04-15 07:05 | disposition home or self-care (01) ==
PROVIDERS: Emergency Provider Emergency Medicine; PCP Internal Medicine
DX: O20.0 Threatened abortion (principal); O23.41 Unspecified infection of urinary tract in pregnancy, first trimester; N39.0 Urinary tract infection, site not specified; O99.331 Smoking (tobacco) complicating pregnancy, first trimester; Z3A.00 Weeks of gestation of pregnancy not specified
CPT/HCPCS: 36415; 80053; 81001; 84702; 85025; 85461; 87086; 96360; 96361; 99283; J7030; J7120

== ENCOUNTER 2021-04-26 11:01 | Emergency (ER) | payer OTHER, SELFPAY ==
[2021-04-26 11:17] VITALS: BP 111/62; PULSE 58; RESP 18; TEMP 36.4; O2SAT 100
--- NOTE | 2021-04-26 12:59 | PC.NURSE ---
Called for room at this time, did not answer in waiting room.
== END 2021-04-27 01:27 | disposition left against medical advice (07) ==
LOC: ANHED 14:09
PROVIDERS: PCP Internal Medicine
DX: O26.891 Other specified pregnancy related conditions, first trimester (principal); R11.0 Nausea
CPT/HCPCS: 99199

== ENCOUNTER 2021-05-31 19:44 | Emergency (ER) | payer OTHER, SELFPAY ==
[2021-05-31 20:02] VITALS: BP 117/74; PULSE 79; RESP 18; TEMP 36.6; O2SAT 100
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
[2021-05-31 22:21] LABS: Basophils Percent Auto 0.5 % (0.2-1.2); Eosinophils Absolute Auto 0.1 K/mm3 (0-0.3); Eosinophils Percent Auto 1.6 % (0-4.4); Hematocrit 32.2 % (37.0-47.0); Immature Granulocyte Absolute 0.03 K/mm3 (0.00-0.031); Immature Granulocyte Percent A 0.4 % (0-0.5); Lymphocytes Absolute Auto 2.25 K/mm3 (0.9-3.2); Lymphocytes Percent Auto 29.3 % (18.3-44.2); Mean Corpuscular HGB Conc 34.2 g/dl (32-36); Mean Corpuscular Hemoglobin 33.4 pg (26-34); Mean Corpuscular Volume 97.9 fl (80-100); Mean Platelet Volume 9.2 fl (7.4-10.4); Monocytes Absolute Auto 0.6 K/mm3 (0.1-0.6); Monocytes Percent Auto 7.2 % (2.6-8.5); Neutrophils Absolute Auto 4.7 K/mm3 (1.3-6.7); Platelet Count Result 300 k/mm3 (150-375); Red Blood Count 3.29 M/mm3 (4.2-5.4); Red Cell Distribution Width 13.2 % (11.5-14.5); White Blood Count 7.7 K/mm3 (4.5-10.0)
[2021-05-31 22:31] LABS: Alanine Aminotransferase 18 U/L (4-35); Albumin Level 4.2 g/dL (3.5-5.1); Alkaline Phosphatase 60 U/L (38-126); Anion Gap 9 mmol/L (8-16); Aspartate Amino Transferase 24 U/L (14-36); Bilirubin,Total 0.6 mg/dL (0.2-1.3); Blood Urea Nitrogen 7 mg/dL (7-17); Calcium 9.1 mg/dL (8.4-10.2); Carbon Dioxide 23 mmol/L (22-30); Chloride 103 mmol/L (98-107); Estimated CRCL calculation 95 ml/min; Estimated Glomerular Filt Rate > 60; Glucose 96 mg/dL (65-110); Potassium 3.8 mmol/L (3.4-5.0); Sodium 135 mmol/L (137-145)
--- NOTE | 2021-05-31 22:37 | PC.NURSE ---
FHT 136
[2021-05-31 23:26] VITALS: BP 117/67; PULSE 79; RESP 18; O2SAT 97
== END 2021-05-31 23:31 | disposition home or self-care (01) ==
PROVIDERS: Emergency Provider Emergency Medicine; PCP Internal Medicine
DX: O20.0 Threatened abortion (principal); O99.281 Endocrine, nutritional and metabolic diseases complicating pregnancy, first trimester; E89.0 Postprocedural hypothyroidism; O99.611 Diseases of the digestive system complicating pregnancy, first trimester; K21.9 Gastro-esophageal reflux disease without esophagitis; O99.331 Smoking (tobacco) complicating pregnancy, first trimester; F17.210 Nicotine dependence, cigarettes, uncomplicated; Z3A.13 13 weeks gestation of pregnancy; Z85.828 Personal history of other malignant neoplasm of skin; Z85.850 Personal history of malignant neoplasm of thyroid
CPT/HCPCS: 36415; 80053; 84702; 85025; 99283

== ENCOUNTER 2021-10-09 11:00 | Observation (INO) | payer OTHER, SELFPAY ==
[2021-10-09] VITALS (16 sets, daily range): BP systolic 75–121; BP diastolic 33–66; PULSE 110–144; TEMP 36.9–38.1; BMI 25.6
[2021-10-09 11:47] LABS: Appearance Urine Clear (Clear); Bilirubin Urine Negative (Negative); Blood Urine Negative (Negative); Color Urine Yellow (Yellow); Glucose Urine UA Negative (Negative); Ketones Urine Negative (Negative); Leukocyte Esterase Ur Negative LEU/UL (Negative); Nitrate Urine Negative (Negative); Protein Urine Negative (Negative); Specific Grav Ur 1.015 (1.001-1.035); Urobilinogen Urine 0.2 mg/dL (<2.0)
--- NOTE | 2021-10-09 11:51 | OBADM ---
This patient, Marco Antonio Osman, admitted to the OB room 116 for observation for back pain. Patient/family oriented to hospital policies and general routines including ID bracelet, bed and alarms, visiting hours, pain management, procedures, bathroom and other care routines, personal items, smoking policy, room service/diet, and visiting hours. Patient/Family are encouraged to report perceived risks to care and to ask questions if they do not understand what they are told or what they should do.
[2021-10-09 11:52] LABS: Add Urine Microscopic? NO
[2021-10-09] MEDS: NIFEdipine 10 MG CAPSULE PO (11:55)
[2021-10-09 12:34] LABS: Fetal Fibronectin Negative
[2021-10-09] MEDS: ONDANSETRON HCL ODT 4 MG TABLET PO (12:48)
[2021-10-09] MEDS: DEXTROSE 5%/LACTATED RINGERS 1,000 ML 999 ML IV CONT (13:40)
[2021-10-09 13:47] LABS: SARS-CoV-2 RNA PCR Positive
[2021-10-09] MEDS: FAMOTIDINE 20 MG/2 ML VIAL IV PUSH (13:56)
--- NOTE | 2021-10-09 18:18 | PC.NURSE ---
1630 Patient had 4 UC in last hour. Pt lying on left side.
--- NOTE | 2021-10-09 18:19 | PC.NURSE ---
1710 Uterine irritability noted. Patient up to bathroom to empty bladder. Back to bed to eat dinner. Procardia 10 mg given for contractions and irritability.
--- NOTE | 2021-10-09 18:20 | PC.NURSE ---
1730 Pt lying on right side. States feeling better. Wants to go home to rest.
--- NOTE | 2021-10-09 18:21 | PC.NURSE ---
1750 Discharge instructions given. Reviewed labor protocol and when to return. Voiced understanding. Discharged to home with mother.
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
== END 2021-10-09 18:00 | disposition home or self-care (01) ==
PROVIDERS: Admitting Provider Obstetrics & Gynecology; PCP Internal Medicine; Visit Provider Obstetrics & Gynecology
DX: O47.03 False labor before 37 completed weeks of gestation, third trimester (principal); Z3A.31 31 weeks gestation of pregnancy; Z20.822 Contact with and (suspected) exposure to COVID-19
CPT/HCPCS: 81003; 82731; 96361; 96374; 96375; A9270; C9803; G0378; G0379; J0131; J7121; U0003; U0005

== ENCOUNTER 2021-11-01 18:53 | Observation (INO) | payer OTHER, SELFPAY ==
[2021-11-01] VITALS (11 sets, daily range): BP systolic 103; BP diastolic 66; PULSE 94–121; O2SAT 98–100
[2021-11-01] MEDS: TERBUTALINE SULFATE 1 MG/ML VIAL 0.25 MG SUB-Q (19:43)
[2021-11-01] MEDS: NIFEdipine 10 MG CAPSULE PO (19:43)
--- NOTE | 2021-11-01 20:16 | OBADM ---
This patient, Marco Antonio Osman, admitted to the OB room OB Post 117 for observation. Patient/family oriented to hospital policies and general routines including ID bracelet, bed and alarms, visiting hours, pain management, procedures, bathroom and other care routines, personal items, smoking policy, room service/diet, and visiting hours. Patient/Family are encouraged to report perceived risks to care and to ask questions if they do not understand what they are told or what they should do.
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
== END 2021-11-01 20:36 | disposition home or self-care (01) ==
PROVIDERS: Admitting Provider Obstetrics & Gynecology; PCP Internal Medicine; Visit Provider Obstetrics & Gynecology
DX: Z04.1 Encounter for examination and observation following transport accident (principal); O47.03 False labor before 37 completed weeks of gestation, third trimester; Z3A.35 35 weeks gestation of pregnancy
CPT/HCPCS: 59025; 96372; A9270; G0378; G0379; J3105

== ENCOUNTER 2021-11-01 23:49 | Observation (INO) | payer OTHER, SELFPAY ==
[2021-11-01 23:49] VITALS: BMI 25.8
[2021-11-02] VITALS (57 sets, daily range): BP systolic 82–97; BP diastolic 42–51; PULSE 85–112; TEMP 36.7; O2SAT 93–100
[2021-11-02] MEDS: NIFEdipine 10 MG CAPSULE PO ×3 (00:30→08:50)
[2021-11-02] MEDS: TERBUTALINE SULFATE 1 MG/ML VIAL 0.25 MG SUB-Q ×2 (00:30→07:03)
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
--- NOTE | 2021-11-02 09:38 | PC.NURSE ---
Pt finishing breakfast before going home.
== END 2021-11-02 10:01 | disposition home or self-care (01) ==
PROVIDERS: Admitting Provider Obstetrics & Gynecology; PCP Internal Medicine; Visit Provider Obstetrics & Gynecology
DX: Z04.1 Encounter for examination and observation following transport accident (principal); O60.03 Preterm labor without delivery, third trimester; Z3A.35 35 weeks gestation of pregnancy; O99.333 Smoking (tobacco) complicating pregnancy, third trimester; F17.210 Nicotine dependence, cigarettes, uncomplicated; Z79.899 Other long term (current) drug therapy
CPT/HCPCS: 96372; A9270; G0378; G0379; J3105

== ENCOUNTER 2021-11-16 23:59 | Observation (INO) | payer OTHER, SELFPAY ==
[2021-11-17 00:30] VITALS: TEMP 36.6
--- NOTE | 2021-11-17 02:42 | OBADM ---
This patient, Marco Antonio Osman, admitted to the OB room Labor/Delivery/Recovery 109 for observation. Patient/family oriented to hospital policies and general routines including ID bracelet, bed and alarms, visiting hours, pain management, procedures, bathroom and other care routines, personal items, smoking policy, room service/diet, and visiting hours. Patient/Family are encouraged to report perceived risks to care and to ask questions if they do not understand what they are told or what they should do.
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
== END 2021-11-17 02:30 | disposition home or self-care (01) ==
PROVIDERS: Admitting Provider Student in an Organized Health Care Education/Training Program; PCP Internal Medicine; Visit Provider Student in an Organized Health Care Education/Training Program
DX: O47.1 False labor at or after 37 completed weeks of gestation (principal); O42.92 Full-term premature rupture of membranes, unspecified as to length of time between rupture and onset of labor; Z3A.37 37 weeks gestation of pregnancy
CPT/HCPCS: 84112; G0378; G0379

== ENCOUNTER 2021-11-21 08:26 | Inpatient (IN) | payer OTHER, SELFPAY ==
[2021-11-21] VITALS (109 sets, daily range): BP systolic 76–125; BP diastolic 42–100; PULSE 52–192; RESP 16; TEMP 36.2–36.7; O2SAT 95–100; BMI 29.4
[2021-11-21] MEDS: LACTATED RINGERS 1,000 ML 125 ML IV CONT ×2 (08:37→09:12)
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
[2021-11-21 08:53] LABS: Hemoglobin 10.8 g/dL (12.0-15.0); Mean Corpuscular HGB Conc 33.8 g/dl (32-36); Mean Corpuscular Hemoglobin 33.9 pg (26-34); Mean Corpuscular Volume 100.3 fl (80-100); Mean Platelet Volume 11.9 fl (7.4-10.4); Platelet Count Result 228 k/mm3 (150-375); Red Blood Count 3.19 M/mm3 (4.2-5.4); Red Cell Distribution Width 14.1 % (11.5-14.5); White Blood Count 22.7 K/mm3 (4.5-10.0)
[2021-11-21] MEDS: CLINDAMYCIN 900 MG/D5W 50 ML 900 MG/50 ML PIGGYBACK 50 MG IVPB (08:53)
[2021-11-21 09:32] LABS: Band Neutrophils Percent 2 % (0-6); Monocytes Absolute Manual 2.49 K/mm3 (0.1-0.90); Monocytes Percent Manual 11 % (3-9); Neutrophils Percent Manual 61 % (46-73); Total Cells Counted 100
[2021-11-21 09:33] LABS: Platelet Estimate Adequate (Adequate)
--- NOTE | 2021-11-21 09:35 | WPDANESEPPF ---
Anes - Initial Pre Proc Eval Procedure: labor epidural Date/Time: 11/21/21 09:35 Surgeon: Christian Hernadez MD Pre Op Diagnosis: labor pain Pre Op Diagnosis: Labor Patient Data Age: 26 Gender: F Height: Weight: Last Vital Signs Pulse 97 11/21/21 09:33 BP 121/74 11/21/21 09:33 Pulse Ox 99 11/21/21 09:32 Allergies Allergy/AdvReac Type Severity Reaction Status Date / Time Penicillins AdvReac Mild VOMITING Verified 11/15/21 12:25 Home Medications Medication Instructions Recorded Confirmed Type vit no.95-ferrous 1 tablet PO DAILY 07/10/19 11/02/21 History fumarate 28 mg-folic acid 800 mcg tablet () omeprazole 40 mg capsule,delayed 40 mg PO BID 11/11/19 11/02/21 History release valacyclovir 500 mg tablet 500 mg PO DAILY 11/11/19 11/02/21 History acetaminophen 500 mg tablet 1,000 mg PO Q6H PRN Pain 10/09/21 11/02/21 History (Tylenol Extra Strength) levothyroxine 200 mcg tablet 200 mcg PO DAILY 10/09/21 11/02/21 History levothyroxine 25 mcg tablet 25 mcg PO DAILY 10/09/21 11/02/21 History Laboratory Tests 11/21/21 11/21/21 08:48 08:48 WBC 22.7 K/mm3 H K/mm3 (4.5-10.0) RBC 3.19 M/mm3 L M/mm3 (4.2-5.4) Hgb 10.8 g/dL L g/dL (12.0-15.0) Hct 32.0 % L % (37.0-47.0) MCV 100.3 fl H fl (80-100) MCH 33.9 pg pg (26-34) MCHC 33.8 g/dl g/dl (32-36) RDW 14.1 % % (11.5-14.5) Plt Count 228 k/mm3 k/mm3 (150-375) MPV 11.9 fl H fl (7.4-10.4) Immature Gran % (Auto) Not Reportable Neut % (Auto) Not Reportable Lymph % (Auto) Not Reportable [place] % (Auto) Not Reportable Eos % (Auto) Not Reportable Baso % (Auto) Not Reportable Lymph # (Auto) Not Reportable [place] # (Auto) Not Reportable Eos # (Auto) Not Reportable Baso # (Auto) Not Reportable Abs Immat Gran (auto) Not Reportable Absolute Neuts (auto) Not Reportable Absolute Nucleated RBC Not Reportable Total Counted 100 Neutrophils % (Manual) 61 % % (46-73) Band Neutrophils % 2 % % (0-6) Lymphocytes % (Manual) 26.0 % % (18-44) Monocytes % (Manual) 11 % H % (3-9) Nucleated RBC % Not Reportable Abs Neuts (Manual) 14.30 K/mm3 H K/mm3 (1.7-7.2) Abs Lymphs (Manual) 5.90 K/mm3 H K/mm3 (1.1-4.5) Abs Monocytes (Manual) 2.49 K/mm3 H K/mm3 (0.1-0.90) Platelet Estimate Adequate (Adequate) RPR Pending Patient hx anesthesia problems: none Family hx anesthesia problems: none Results Review: All pre-operative results and documents have been reviewed as part of the pre-operative evaluation. [facility] Past Medical History Medical History (Updated 11/21/21 @ 08:39 by Christain Hernadez MD) Ankle fracture, right Anxiety Bipolar disorder Elbow fracture Finger fracture Genital herpes GERD (gastroesophageal reflux disease) History of stillbirth At 7.5 weeks, emergency needed but not performed Skin cancer Thyroid cancer Toe fracture UTI (urinary tract infection) Wrist fracture Surgical History Surgical History History of removal of skin mole History of thyroidectomy Total, due to thyroid CA Family History Family History Father FH: stomach cancer Drug addiction Alcohol abuse Mother Drug addiction Alcohol abuse Other Adopted Unknown family medical history Social History Social History Smoking packs per day: 0.5 Smoking cigarettes per day: 10.0 Years smoked: 13 Smoking pack-years: 6.50 Smoking status: Current every day smoker Tobacco type: cigarettes Second hand tobacco smoke exposure: Yes Additional smoking assess
[2021-11-21 12:01] LABS: Rapid Plasma Reagin Non-Reactive (NonReactive)
[2021-11-21] MEDS: OXYTOCIN 30 UNITS/NS 500 ML 30 UNITS/500 ML BAG 999 UNITS IV CONT (12:10)
--- NOTE | 2021-11-21 12:11 | PM.OBPRVD ---
OB - Delivery Note Procedure Delivery date: 11/21/21 Induction method: None Delivery monitor: External FHT and Internal Uterine Route of delivery: Episiotomy description: None Laceration Description: None Quantitative Blood Loss (ml): 159 Anesthesia type: Epidural Disposition: Floor Complications: clinda x 1 for gbs Baby Date of : 11/21/21 Weeks of gestation at delivery: 38 presentation: vertex position: Right Occiput Anterior Placenta delivery description: Spontaneous Cord Vessel Description: 3 Vessels score one minute: 8 score five minutes: 9 Narrative: 100 cc clots behind placenta
[2021-11-21] MEDS: OXYTOCIN 30 UNITS/NS 500 ML 30 UNITS/500 ML BAG 125 UNITS IV CONT (13:00)
[2021-11-21] MEDS: ONDANSETRON INJ 4 MG/2 ML VIAL IV PUSH (13:00)
[2021-11-21] MEDS: IBUPROFEN 600 MG TABLET PO (14:24)
--- NOTE | 2021-11-21 15:44 | PC.NURSE ---
Patient transferred to post room #284 via wheelchair. Support person present. Oriented to unit, room, information board, rooming in, admission packet and security measures. Patient verbalizes understanding.
[2021-11-21] MEDS: ACETAMINOPHEN 325 MG TABLET 650 MG PO (19:55)
[2021-11-22 03:15] VITALS: BP 77/41; PULSE 72; RESP 18; TEMP 36.3
[2021-11-22] MEDS: ACETAMINOPHEN 325 MG TABLET 650 MG PO ×3 (03:17→17:41)
[2021-11-22 05:13] LABS: Hematocrit 24.6 % (37.0-47.0); Hemoglobin 8.1 g/dL (12.0-15.0)
--- NOTE | 2021-11-22 06:53 | PM.OBPNVD ---
OB - PN: Subj Subjective Date/time seen: 11/22/21 06:53 Interval history: Desires circumcision for some Patient comments: no complaints and pain well controlled [place] baby status: doing well OB - PN: Obj Data Labs CBC & Chem 7: 11/22/21 03:21 Labs: Laboratory Results - last 24 hr 11/21/21 11/21/21 11/21/21 08:48 08:48 08:48 WBC 22.7 H RBC 3.19 L Hgb 10.8 L Hct 32.0 L MCV 100.3 H MCH 33.9 MCHC 33.8 RDW 14.1 Plt Count 228 MPV 11.9 H Immature Gran % (Auto) Not Reportable Neut % (Auto) Not Reportable Lymph % (Auto) Not Reportable [place] % (Auto) Not Reportable Eos % (Auto) Not Reportable Baso % (Auto) Not Reportable Lymph # (Auto) Not Reportable [place] # (Auto) Not Reportable Eos # (Auto) Not Reportable Baso # (Auto) Not Reportable Abs Immat Gran (auto) Not Reportable Absolute Neuts (auto) Not Reportable Absolute Nucleated RBC Not Reportable Total Counted 100 Neutrophils % (Manual) 61 Band Neutrophils % 2 Lymphocytes % (Manual) 26.0 Monocytes % (Manual) 11 H Nucleated RBC % Not Reportable Abs Neuts (Manual) 14.30 H Abs Lymphs (Manual) 5.90 H Abs Monocytes (Manual) 2.49 H Platelet Estimate Adequate RPR Non-reactive Blood Type A Positive Antibody Screen Negative 11/22/21 03:21 WBC RBC Hgb 8.1 L Hct 24.6 L MCV MCH MCHC RDW Plt Count MPV Immature Gran % (Auto) Neut % (Auto) Lymph % (Auto) [place] % (Auto) Eos % (Auto) Baso % (Auto) Lymph # (Auto) [place] # (Auto) Eos # (Auto) Baso # (Auto) Abs Immat Gran (auto) Absolute Neuts (auto) Absolute Nucleated RBC Total Counted Neutrophils % (Manual) Band Neutrophils % Lymphocytes % (Manual) Monocytes % (Manual) Nucleated RBC % Abs Neuts (Manual) Abs Lymphs (Manual) Abs Monocytes (Manual) Platelet Estimate RPR Blood Type Antibody Screen OB - PN A/P Assessment and Plan (1) Positive testing for group B Streptococcus: Code(s): B95.1 - Streptococcus, group B, as the cause of diseases classified elsewhere Status: Acute (2) Spontaneous rupture of membranes: Status: Acute (3) Term : Code(s): Z34.90 - Encounter for supervision of normal , unspecified, unspecified trimester Status: Acute (4) Anemia: Code(s): D64.9 - Anemia, unspecified Status: Acute Plan day: 1 Plan: routine care Comments: begin iron supplementation Time Spent With Patient Time: Total time spent is greater than 50% in coordination of care (as documented) at patient's floor/unit and/or counseling patient: Time with patient: less than 15 minutes
--- NOTE | 2021-11-22 07:19 | WPDANLDPN2 ---
Anes-Prog Note L&D Date/Time: 11/22/21 07:19 Comfortable throughout: labor Neuraxial method: epidural Epidural/Spinal procedure site: clean & non-tender Neuro status: Neuro function grossly intact. Cardiovascular status: normal Respiratory status: normal Airway patency: baseline Mental status: baseline Post-Op hydration status: normal Vital Signs: Last Vital Signs Temp 36.3 C L 11/22/21 03:15 Pulse 72 11/22/21 03:15 Resp 18 11/22/21 03:15 BP 77/41 L 11/22/21 03:15 Pulse Ox 98 11/21/21 19:55 O2 Del Method Room Air 11/21/21 19:55 Pain score (VAS): 2 I/O: Intake & Output 11/21/21 11/21/21 11/22/21 15:59 23:59 07:59 Intake Total 1500 240 Balance 1500 240 Patient feedback: Patient satisfied with anesthetic care.
[2021-11-22 07:30] VITALS: BP 86/59; PULSE 79; RESP 18; TEMP 36.9; O2SAT 99
[2021-11-22] MEDS: MULTIVIT/MIN/PREN/FOL AC/IRON TABLET 1 TAB PO (09:04)
[2021-11-22] MEDS: IBUPROFEN 600 MG TABLET PO ×4 (09:04→22:38)
[2021-11-22] MEDS: DOCUSATE SODIUM 100 MG CAPSULE PO ×2 (09:05→15:12)
[2021-11-22] MEDS: POLYSACCHARIDE IRON COMPLEX 150 MG CAPSULE PO ×2 (09:06→15:12)
[2021-11-22] MEDS: LEVOTHYROXINE SODIUM 75 MCG TABLET 225 MCG PO (10:54)
[2021-11-22 12:57] VITALS: BP 85/43; PULSE 71; RESP 16; TEMP 36.3; O2SAT 99
--- NOTE | 2021-11-22 13:56 | PC.NURSE ---
[id number] Introductions were made, then consulted with patient to assess needs related to . Mother led the conversation with her?plans to feed?her infant and the?experience so far. Resources provided for inpatient and outpatient services using a resource guide and mom/baby guide. Mother requested RN to assist with a latching assessment. Mother latched infant optimally to the left breast with cross cradle positioning with effective suck/swallow ratios. Mother voiced understanding of information and will call if there is a request for assistance. Reported to primary RN.
[2021-11-22 19:05] VITALS: BP 82/48; PULSE 76; RESP 16; TEMP 36.2
--- NOTE | 2021-11-22 20:00 | PC.NURSE ---
Patient instructed to view the discharge video Mother & Baby Care, The First Two Weeks online. Patient was given the opportunity and encouraged to ask questions. Patient verbalized understanding of information shared and has been given the mother/baby guide for home reference.
[2021-11-23] MEDS: ACETAMINOPHEN 325 MG TABLET 650 MG PO (04:03)
--- NOTE | 2021-11-23 07:26 | PM.DS ---
DS: Admitting Diagnosis Discharge Date 11/23/2021 Admitting Diagnosis Term in active labor DS: Discharge Diagnosis Discharge Diagnosis (1) Positive testing for group B Streptococcus: Code(s): B95.1 - Streptococcus, group B, as the cause of diseases classified elsewhere Status: Acute (2) Term : Code(s): Z34.90 - Encounter for supervision of normal , unspecified, unspecified trimester Status: Acute (3) Anemia: Code(s): D64.9 - Anemia, unspecified Status: Acute DS: Summary Hospital Course Reason for hospitalization: Active labor Hospital Course: The patient was admitted at 38 weeks gestation with spontaneous rupture membranes prior to admission. She is positive for group B strep and received 1 dose of clindamycin. Her hospital course was unremarkable. She remained afebrile. She was up, voiding without difficulty, ambulating, breast-feeding, generally without complaints. Time Spent with Patient Time attestation: Total time spent providing and/or coordinating discharge services: DS: Data Data Completed and Pending Pending studies at discharge: Pending at discharge 11/21/21 13:28 Surgical [PTH] Routine Discharge Plan Discharge Attending physician on discharge: Christian Collins Discharging Clinician: Christian Collins Patient Disposition: Home, Self-Care Activity: may shower, no straining and pelvic rest Diet: heart healthy Wound Care Instructions: follow printed instructions Patient Instructions: Antibiotic Form Stand Alone Forms: General Discharge Information Follow-up/Referrals: Christian Collins MD [Physician] - Discharge Medications: Continued PNV cmb#95-ferrous fumarate-FA [] 28 mg iron- 800 mcg Tablet 1 tablet PO DAILY omeprazole 40 mg Capsule,Delayed Release(Dr/Ec) 40 mg PO BID valacyclovir 500 mg Tablet 500 mg PO DAILY levothyroxine 25 mcg tablet 25 mcg PO DAILY Rx Instructions: Pt's total dose is 225 mcg / day levothyroxine 200 mcg tablet 200 mcg PO DAILY Rx Instructions: Pt takes a total of 225 mcg/day acetaminophen [Tylenol Extra Strength] 500 mg Tablet 1,000 mg PO Q6H PRN (Reason: Pain) Date of admission: 11/21/21 08:26 Primary Care Provider: Mary JaneRudy Admitting Provider: Christian Collins Attending physician on admission: Christian Collins Condition: Stable
--- NOTE | 2021-11-23 07:30 | PM.OBPNVD ---
OB - PN: Subj Subjective Date/time seen: 11/23/21 07:30 Interval history: Desires circumcision for some Patient comments: no complaints and pain well controlled [place] baby status: doing well OB - PN: Obj Data Labs CBC & Chem 7: 11/22/21 03:21 OB - PN A/P Assessment and Plan (1) Positive testing for group B Streptococcus: Code(s): B95.1 - Streptococcus, group B, as the cause of diseases classified elsewhere Status: Acute (2) Anemia: Code(s): D64.9 - Anemia, unspecified Status: Acute (3) Term : Code(s): Z34.90 - Encounter for supervision of normal , unspecified, unspecified trimester Status: Acute Plan day: 2 Plan: routine care, discharge home and follow up 6 weeks Time Spent With Patient Time: Total time spent is greater than 50% in coordination of care (as documented) at patient's floor/unit and/or counseling patient: Time with patient: less than 15 minutes
[2021-11-23 08:20] VITALS: BP 105/69; PULSE 71; RESP 18; TEMP 36.2; O2SAT 100
[2021-11-23] MEDS: LEVOTHYROXINE SODIUM 75 MCG TABLET 225 MCG PO (09:03)
[2021-11-23] MEDS: IBUPROFEN 600 MG TABLET PO (09:03)
[2021-11-23] MEDS: MULTIVIT/MIN/PREN/FOL AC/IRON TABLET 1 TAB PO (09:03)
[2021-11-23] MEDS: DOCUSATE SODIUM 100 MG CAPSULE PO (09:03)
[2021-11-23] MEDS: POLYSACCHARIDE IRON COMPLEX 150 MG CAPSULE PO (09:03)
--- NOTE | 2021-11-23 12:36 | PC.NURSE ---
1025 Mother led the conversation with her experience and plan to feed her . Mother is primarily feeding her baby the bottle and states she plans to start pumping at home . Mother states she is confident to continue feeding her infant at home or when to call for assistance and denies any additional assistance or education at this time. Reinforced understanding of milk production pumping 8 times in a 24 hour period 1-2 times at night, community resources, medication information reviewed per [facility] and when to call a provider using the resource of the mom and baby guide/[facility] website. Mother voiced understanding of the education shared. Reported to the primary RN.
--- NOTE | 2021-11-23 19:19 | PC.NURSE ---
8224 Patient was given the opportunity to view the discharge video Mother & Baby Care, The First Two Weeks and to ask questions. Patient declined viewing the video and has been given the mother/baby guide for home reference.
== END 2021-11-23 13:40 | disposition home or self-care (01) | DRG 560 ==
LOC: ANHLDR 08:33 → ANHOB2 15:57
PROVIDERS: Admitting Provider Obstetrics & Gynecology; PCP Internal Medicine; Visit Provider Obstetrics & Gynecology
DX: O99.824 Streptococcus B carrier state complicating childbirth (principal); Z37.0 Single live birth; Z3A.37 37 weeks gestation of pregnancy; O99.02 Anemia complicating childbirth; D64.9 Anemia, unspecified; O99.284 Endocrine, nutritional and metabolic diseases complicating childbirth; E03.8 Other specified hypothyroidism; O99.344 Other mental disorders complicating childbirth; F31.9 Bipolar disorder, unspecified; O98.32 Other infections with a predominantly sexual mode of transmission complicating childbirth; A60.09 Herpesviral infection of other urogenital tract
CPT/HCPCS: 36415; 85014; 85018; 85025; 86592; 86850; 86900; 86901; 88307; A9270; J2405; J2590; J2795; J7120

== ENCOUNTER 2022-02-11 23:54 | Emergency (ER) | payer OTHER, SELFPAY ==
[2022-02-11 23:52] VITALS: BP 112/89; PULSE 95; RESP 18; TEMP 36.7; O2SAT 100
[2022-02-12] VITALS (8 sets, daily range): BP systolic 90–106; BP diastolic 56–71; PULSE 76; RESP 17; O2SAT 98–100
--- NOTE | 2022-02-12 00:38 | ED.ALCOHOL ---
HPI - Alcohol General Chief Complaint: Alcohol <ROSEMARY Mcintyre Last Filed: 02/12/22 01:19> Stated Complaint: ETOH, n/v <ROSEMARY Mcintyre Last Filed: 02/12/22 01:19> Time Seen by Provider: 02/12/22 00:01 <ROSEMARY Mcintyre Last Filed: 02/12/22 01:19> Source: patient <ROSEMARY Mcintyre Last Filed: 02/12/22 01:19> Mode of arrival: EMS <ROSEMARY Mcintyre Filed: 02/12/22 01:19> Limitations: no limitations <ROSEMARY Mcintyre Last Filed: 02/12/22 01:19> History of Present Illness HPI narrative: Patient is a 27 y/o female who presents to the ED via EMS with c/o ETOH intoxication. Per EMS report, patient reportedly had several drinks tonight and became unresponsive per family. Patient vomiting upon EMS arrival and on arrival to the ED. Patient reports she was at a [employer] tonight with her and did drink several hard seltzers and several shots. She states she usually only has 1 or 2 drinks when she does drink. She does still feel somewhat nauseous currently. A&O x3 upon my evaluation. Denies any pain. <ROSEMARY Mcintyre Last Filed: 02/12/22 01:19> Related Data Home Medications: Home Medications Medication Instructions Recorded Confirmed vit no.95-ferrous 1 tablet PO DAILY 07/10/19 11/02/21 fumarate 28 mg-folic acid 800 mcg tablet () omeprazole 40 mg capsule,delayed 40 mg PO BID 11/11/19 11/02/21 release valacyclovir 500 mg tablet 500 mg PO DAILY 11/11/19 11/02/21 acetaminophen 500 mg tablet 1,000 mg PO Q6H PRN Pain 10/09/21 11/02/21 (Tylenol Extra Strength) levothyroxine 200 mcg tablet 200 mcg PO DAILY 10/09/21 11/02/21 levothyroxine 25 mcg tablet 25 mcg PO DAILY 10/09/21 11/02/21 <Daria Sanchez PA-C - Last Filed: 02/12/22 01:19> Allergies/Adverse Reactions: Allergies Allergy/AdvReac Type Severity Reaction Status Date / Time Penicillins AdvReac Mild VOMITING Verified 11/15/21 12:25 <Daria Sanchez PA-C - Last Filed: 02/12/22 01:19> Review of Systems Review of Systems: CONSTITUTIONAL: Denies fever, chills, or sweats. CARDIOVASCULAR: Denies chest pain. RESPIRATORY: Denies dyspnea. GASTROINTESTINAL: Reports N/V. Denies abdominal pain. MUSCULOSKELETAL: Denies pain. <Daria Sanchez PA-C - Last Filed: 02/12/22 01:19> All systems reviewed & are unremarkable except as noted in HPI and below <Daria Sanchez PA-C - Last Filed: 02/12/22 01:19> [facility] Past Medical History Medical History: Medical History (Updated 02/13/22 @ 00:00 by Christelle Panchal) Ankle fracture, right Anxiety Bipolar disorder Elbow fracture Finger fracture Genital herpes GERD (gastroesophageal reflux disease) History of stillbirth At 7.5 weeks, emergency needed but not performed Skin cancer Thyroid cancer Toe fracture UTI (urinary tract infection) Wrist fracture <Daria Sanchez PA-C - Last Filed: 02/12/22 01:19> Surgical History Surgical History: Surgical History History of removal of skin mole History of thyroidectomy Total, due to thyroid CA <Daria Sanchez PA-C - Last Filed: 02/12/22 01:19> Family History Family History: Family History Father FH: stomach cancer Drug addiction Alcohol abuse Mother Drug addiction Alcohol abuse Other Adopted Unknown family medical history <ROSEMARY Mcintyre Last Filed: 02/12/22 01:19> Social History Social History: Social History (Updated 02/12/22 @ 00:47 by Daria Sanchez PA-C) Smoking packs per day: 0.5 Smoking cigarettes per day: 10.0 Years smoked: 13 Smoking pack-years: 6.50 Smoking status: Current every day smoker Tobacco type: cigarettes Second hand tobacco smoke exposure: Yes
[2022-02-12] MEDS: SODIUM CHLORIDE 0.9% IV 1,000 ML 999 ML IV CONT (01:00)
[2022-02-12] MEDS: ONDANSETRON INJ 4 MG/2 ML VIAL IV PUSH (01:00)
== END 2022-02-12 01:23 | disposition home or self-care (01) ==
PROVIDERS: Emergency Provider Emergency Medicine; PCP Internal Medicine
DX: F10.121 Alcohol abuse with intoxication delirium (principal); K21.9 Gastro-esophageal reflux disease without esophagitis; E89.0 Postprocedural hypothyroidism; Z85.828 Personal history of other malignant neoplasm of skin; Z85.850 Personal history of malignant neoplasm of thyroid; Z87.440 Personal history of urinary (tract) infections; F17.210 Nicotine dependence, cigarettes, uncomplicated; Y90.9 Presence of alcohol in blood, level not specified
CPT/HCPCS: 96374; 99284; J2405; J7030

== ENCOUNTER 2023-01-04 01:29 | Day surgery (SDC) | payer OTHER, MEDICAID, SELFPAY ==
[2023-01-02 13:52] VITALS: BMI 19.8
--- NOTE | 2023-01-02 14:00 | PC.NURSE ---
Report to the Outpatient Waiting Room, entrance under the green pavilion located off [facility], at time 1100 on date 01/04/23. Planned Procedure Time: 1300. Time changes happen often and if your time is changed the preop area will call you the afternoon before. - You and your visitor will be asked to self-screen and do not enter if you have any COVID symptoms. - A mask is optional within the hospital at this time. Patients may have clear liquids (water, carbonated beverages, clear teas, apple juice) until 3 hours prior to surgery with a maximum of 20 ounces. - No food from midnight until time of surgery Take the following medications with a SIP of water the morning of surgery: BUPROPION, LEVOTHYROXINE, PROPRANOLOL, VALACYCLOVIR DO NOT STOP ANY OF YOUR OTHER PRESCRIPTION MEDICATIONS PRIOR TO SURGERY ?EXCEPT THE FOLLOWING Medications to discontinue per physician: N/A Date to take last dose: N/A Please no make-up, nail macedonian, hairspray, perfume, deodorant, or body powder the day of surgery. No jewelry (including any body piercings) or valuables the day of surgery, leave them at home. Please take a shower or bath the night before, or the morning of, surgery with an antibacterial soap. Wear comfortable, loose fitting clothing. - Jewelry must be removed prior to entering the operating room. Rings and piercings that are not removed may be cut off. - The hospital will not accept responsibility for valuables. - Please leave all valuables, including medications, at home the day of surgery. If you are going home after surgery, a licensed national van truck driver must drive you home. - NO public transportation without another adult if you receive anesthesia. - We recommend that an adult stay with you for 24 hours following discharge. - We also recommend that you do not drive, make important decision, drink alcoholic beverages, or take any drugs that were not prescribed by your health care provider for at least 24 hours after your discharge time. Follow any additional instructions given to you from your surgeon. If you or anyone in your household have experienced Covid symptoms in the past week, please notify your surgeon or the nurse liaison at the phone number below for possible testing. Telephone instructions given to PT Sam QUEEN and asked if any additional questions and then verbalized understanding. Patient advised to call surgeon office or pre surgery nurse liaison [phone] if any additional questions.
--- NOTE | 2023-01-02 16:11 | PM.IMHP ---
H&P: HPI History of Present Illness Date/Time: 01/02/23 16:11 Chief Complaint: First trimester missed A/B Narrative: This is the 27-year-old 5 para 3 who was seen on 01/02 23 for new OB visit and noted to have in the week demise. She had a 6 week ultrasound confirming dates with heart tones present prior. She was offered watchful waiting or considering suction dilatation curettage. She opts for the latter. Risks and benefits reviewed in great detail [facility] Past Medical History Medical History (Updated 01/02/23 @ 16:13 by Christian Hernadez MD) Ankle fracture, right Anxiety Bipolar disorder Elbow fracture Finger fracture Genital herpes GERD (gastroesophageal reflux disease) History of stillbirth At 7.5 weeks, emergency needed but not performed Skin cancer Thyroid cancer Toe fracture UTI (urinary tract infection) Wrist fracture Surgical History Surgical History History of removal of skin mole History of thyroidectomy Total, due to thyroid CA Family History Family History Father FH: stomach cancer Drug addiction Alcohol abuse Mother Drug addiction Alcohol abuse Other Adopted Unknown family medical history Social History Social History Smoking packs per day: 1 Smoking cigarettes per day: 20.0 Years smoked: 16 Smoking pack-years: 16.00 Smoking status: Current every day smoker Tobacco type: cigarettes Second hand tobacco smoke exposure: Yes Additional smoking assessment comments: Pt has cut down to 0.25 PPD during Alcohol intake: never Substance use: current Substance use type: marijuana Living arrangements: with family Gender identity (if verbalized by the patient): Female Sexual Orientation (if Verbalized by the Patient): Straight or Heterosexual Spiritual care concerns: No Meds Home Medications and Allergies Home Medications Medication Instructions Recorded Confirmed Type valacyclovir 500 mg tablet 500 mg PO DAILY 11/11/19 01/02/23 History bupropion HCl 150 mg 24 hr tablet, 150 mg PO DAILY 01/02/23 01/02/23 History extended release levothyroxine 150 mcg tablet 150 mcg PO DAILY 01/02/23 01/02/23 History propranolol 20 mg tablet 20 mg PO TID ANXIETY 01/02/23 01/02/23 History Allergies Allergy/AdvReac Type Severity Reaction Status Date / Time Penicillins AdvReac Mild VOMITING Verified 01/02/23 13:51 Exam Const: General: cooperative, healthy appearing and comfortable Nutritional Appearance: average body habitus Orientation/consciousness: oriented to person, oriented to place and oriented to time HENMT: Head: normal to inspection Resp: Effort & Inspection: normal respiratory effort Cardio: Rate: regular rate Rhythm: regular rhythm Heart sounds: S1 normal heart sound present and S2 normal heart sound present GI: Inspection: normal to inspection : External Female Exam: normal external appearance Speculum Exam - Vagina: normal appearance of the vagina Speculum Exam - Cervix: normal appearance of the cervix Bimanual exam- vagina & uterus: enlarged Bimanual Exam- Adnexa, other: no masses Assessment and Plan Assessment and plan (1) Missed with demise before 20 completed weeks of gestation: Code(s): O02.1 - Missed Status: Acute Plan Suction dilatation curettage
--- NOTE | 2023-01-04 06:50 | WPDHPUPDATE1 ---
History and Physical Update Update Date/Time: 01/04/23 06:50 History and Physical has been reviewed, including an updated exam of the patient. There are NO changes in the patient's condition. Risks, benefits, and alternatives have been discussed and questions answered. Patient agrees to proceed with procedure.
[2023-01-04] MEDS: LACTATED RINGERS 1,000 ML 30 ML IV CONT (11:00)
--- NOTE | 2023-01-04 11:17 | WPDANESEPPF ---
Anes - Initial Pre Proc Eval Procedure: Operation Date: 01/04/23 13:00 Proposed Procedures p Suction Dilation and Curettage - Christian Hernadez MD Date/Time: 01/04/23 11:17 Surgeon: Christian Hernadez MD Pre Op Diagnosis: missed AB Patient Data Age: 27 Gender: F Height: 1.57 m Weight: 49 kg Allergies Allergy/AdvReac Type Severity Reaction Status Date / Time Penicillins AdvReac Mild VOMITING Verified 01/02/23 13:51 Home Medications Medication Instructions Recorded Confirmed Type valacyclovir 500 mg tablet 500 mg PO DAILY 11/11/19 01/02/23 History bupropion HCl 150 mg 24 hr tablet, 150 mg PO DAILY 01/02/23 01/02/23 History extended release levothyroxine 150 mcg tablet 150 mcg PO DAILY 01/02/23 01/02/23 History propranolol 20 mg tablet 20 mg PO TID ANXIETY 01/02/23 01/02/23 History Patient hx anesthesia problems: none Family hx anesthesia problems: none Results Review: All pre-operative results and documents have been reviewed as part of the pre-operative evaluation. [facility] Past Medical History Medical History Ankle fracture, right Anxiety Bipolar disorder Elbow fracture Finger fracture Genital herpes GERD (gastroesophageal reflux disease) History of stillbirth At 7.5 weeks, emergency needed but not performed Skin cancer Thyroid cancer Toe fracture UTI (urinary tract infection) Wrist fracture Surgical History Surgical History History of removal of skin mole History of thyroidectomy Total, due to thyroid CA Family History Family History Father FH: stomach cancer Drug addiction Alcohol abuse Mother Drug addiction Alcohol abuse Other Adopted Unknown family medical history Social History Social History Smoking packs per day: 1 Smoking cigarettes per day: 20.0 Years smoked: 16 Smoking pack-years: 16.00 Smoking status: Current every day smoker Tobacco type: cigarettes Second hand tobacco smoke exposure: Yes Additional smoking assessment comments: Pt has cut down to 0.25 PPD during Alcohol intake: never Substance use: current Substance use type: marijuana Living arrangements: with family Gender identity (if verbalized by the patient): Female Sexual Orientation (if Verbalized by the Patient): Straight or Heterosexual Spiritual care concerns: No Anes - Eval Final PreProcedure Day of Procedure 01/04/23 11:17 Patient weight: normal Heart: regular rate and rhythm Lungs: decreased breath sounds Airway: Mallampati scale class II Neurological: alert and oriented Last oral intake: >/= 8 hours ASA classification: III Emergent: no Anesthetic plan: proceed Anesthesia type and monitoring: general GIVS and standard monitoring Results Review: All pre-operative results and documents have been reviewed as part of the pre-operative evaluation. Informed Consent: The patient's anesthetic plan and its attendant risks and benefits were discussed with the patient/family/POA. Questions were solicited and answers provided to the satisfaction of the patient/family/POA.
[2023-01-04 11:51] LABS: Hematocrit 36.2 % (37.0-47.0); Hemoglobin 11.5 g/dL (12.0-15.0)
[2023-01-04] MEDS: ACETAMINOPHEN 500 MG TABLET 1000 MG PO (12:00)
[2023-01-04 12:10] VITALS: BP 95/68; PULSE 120; RESP 16; TEMP 36.7; O2SAT 100
[2023-01-04] MEDS: LIDOCAINE HCL 1% LOCAL INJ 20 ML VIAL 10 ML INFILTRATE (13:16)
--- NOTE | 2023-01-04 13:17 | W.PM.PROC2 ---
Procedure Note - Detailed Date of Procedure 01/04/23 Pre-op Diagnosis missed AB Post-op Diagnosis Same Procedure Performed Suction dilatation curettage Surgeon Christian Hernadez MD Anesthesia MAC and Local Indications [age]-year-old female with first-trimester missed A/B Findings Uterus sounded to 10cm. Tissue consistent with products of conception Description of Procedure Patient was prepped draped in the normal sterile fashion placed in dorsal lithotomy position. Under excellent IV sedation weighted speculum placed in posterior fornix vagina. Anterior lip of the cervix grasped with single-tooth tenaculum. 2.5cc 1% xylocaine and please is anesthesia placed at 2, 4, 8, 10:00 a.m. of the cervix. Uterus sounded to 10cm. Serial dilatation fragmented dilators performed followed by passes the 9. Suction curette. A moderate amount of tissue was removed. When a good grating sound was heard the instruments were withdrawn. The patient went recovery saturation condition. All sponge, needle, instrument counts were correct. There were no immediate complications Estimated Blood Loss 25 Drains No Packing No Pathology Yes Complications No immediate complications Condition Stable Disposition PACU
[2023-01-04 13:21] VITALS: BP 88/54; PULSE 71; RESP 14; O2SAT 99
[2023-01-04 13:50] VITALS: BP 90/72; PULSE 64; RESP 14
== END 2023-01-04 14:15 | disposition home or self-care (01) ==
PROVIDERS: PCP Internal Medicine; Visit Provider Obstetrics & Gynecology
PROC: (CPT 59820; principal; 2023-01-04 13:00)
DX: O02.1 Missed abortion (principal); E89.0 Postprocedural hypothyroidism; Z85.850 Personal history of malignant neoplasm of thyroid; F17.210 Nicotine dependence, cigarettes, uncomplicated; F12.90 Cannabis use, unspecified, uncomplicated; F41.9 Anxiety disorder, unspecified; F31.9 Bipolar disorder, unspecified
CPT/HCPCS: 59820; 36415; 85014; 85018; 85461; 86850; 86900; 86901; 88264; 88305; A9270; J2250; J2405; J2704; J3010; J7120

== ENCOUNTER 2024-04-19 13:01 | Observation (INO) | payer MEDICAID, SELFPAY ==
[2024-04-19 13:16] VITALS: BP 105/59; PULSE 98
[2024-04-19 13:30] VITALS: BMI 19.9
[2024-04-19 13:32] LABS: Add Urine Microscopic? YES; Appearance Urine Clear (Clear); Bacteria Urine None Seen /hpf; Bilirubin Urine Negative (Negative); Blood Urine Negative (Negative); Color Urine Yellow (Yellow); Glucose Urine UA Negative (Negative); Ketones Urine Negative (Negative); Leukocyte Esterase Ur 1+ LEU/UL (Negative); Need Manual Microscopic Reviewed; Nitrate Urine Negative (Negative); Non Pathogenic Casts 0-2; Protein Urine Negative (Negative); RBC Urine 0-2 /hpf (0-2); Specific Grav Ur 1.004 (1.001-1.035); Squamous Epithelial Cell Urine Occasional /hpf (Few); Urobilinogen Urine 0.2 mg/dL (<2.0); pH Urine 6.5 (5.0-9.0)
[2024-04-19 14:00] VITALS: BP 97/52; PULSE 96
--- NOTE | 2024-04-21 10:23 | P.PNOB_ITS ---
OB - Triage/Final Diagnosis Visit Information Reason for evaluation: threatened labor Comments/Additional reasons for admission: I have assessed the risk for this patient, Marco Antonio Osman, and determined that she would benefit from observation care. Evaluation Laboratory results: Laboratory Tests 04/19/24 13:14 Urine Color Yellow Urine Appearance Clear Urine pH 6.5 Ur Specific [place] 1.004 Urine Protein Negative Urine Glucose (UA) Negative Urine Ketones Negative Ur Blood (Man) Negative Urine Nitrate Negative Urine Bilirubin Negative Urine Urobilinogen 0.2 Add Ur Microanalysis Reviewed Leukocyte Esterase Rfl 1+ H Urine RBC 0-2 Urine WBC 6-10 H Ur Squamous Epith Cells Occasional Urine Bacteria None seen Urine Casts 0-2
== END 2024-04-19 14:38 | disposition home or self-care (01) ==
PROVIDERS: Admitting Provider Obstetrics & Gynecology Gynecology; PCP Internal Medicine; Visit Provider Obstetrics & Gynecology Gynecology
DX: O47.02 False labor before 37 completed weeks of gestation, second trimester (principal); Z3A.20 20 weeks gestation of pregnancy
CPT/HCPCS: 81001; 87086; G0378; G0379

== ENCOUNTER 2024-08-12 11:07 | Observation (INO) | payer OTHER, SELFPAY ==
--- NOTE | ~2024-08-12 | US_ITS ---
LIMITED OBSTETRIC ULTRASOUND Ordering provider: Christian Hernadez MD History: . EVANGELINA . Comparison: None. FINDINGS: PRESENTATION: Vertex. Longitudinal lie. PLACENTAL LOCATION: Posterior No previa. HEART RATE: 155 bpm (normal is between 110 to 160 bpm). AMNIOTIC FLUID INDEX: 10.6 cm. 5th percentile is 7.7 cm. 95th percentile is 24.9 cm. Largest vertica l pocket is 4.7 cm. IMPRESSION: Single live fetus of cephalic presentation. Amniotic fluid index is 10.6 cm. Reviewed, dictated and finalized at location A.
[2024-08-12 13:00] VITALS: BP 110/84; PULSE 97; BMI 19.2
--- NOTE | 2024-08-12 13:07 | PM.OBTRLD ---
OB - Triage/Final Diagnosis Visit Information Date of evaluation: 08/12/24 Reason for evaluation: threatened labor Comments/Additional reasons for admission: I have assessed the risk for this patient, Marco Antonio Misael Osman, and determined that she would benefit from observation care. Evaluation Vital signs: Vital Signs - 24 hr 08/12/24 13:00 Pulse Rate 97 Blood Pressure 110/84
[2024-08-12 13:16] VITALS: BP 103/66; PULSE 87
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
--- OUTSIDE RECORDS SUMMARY | 2024-08-12 14:35 | XMS_ITS | Clinical Summary ---
Author Organization [facility] Medical Office Building A Address [address] [place] [address] Care Team Providers Care Correctional Treatment Specialist Name Role Phone Rudy Hinton MD Primary Care Provider Allergies Active Allergy Reactions Criticality Noted Date [...] level Assessment & Plan (03/31/2020 9:49 AM PUTTY REMOVER): Advised to increase levothyroxine dose by one [...] With current dosing of levothyroxine F/U with waiter/waitress cafeteria as scheduled Assessment & Plan (08/26/2018 2:32 [...] levothyroxine Assessment & Plan (03/31/2020 9:50 AM PUTTY REMOVER): No evidence of recurrence per last year [...] With current dosing of levothyroxine F/U with waiter/waitress cafeteria as scheduled Assessment & Plan (08/26/2018 2:32 [...] month Assessment & Plan (06/04/2018 3:16 PM PUTTY REMOVER): Cnt. With current dosing of Remeron considering increase in appetite and 4 lb weight gain. I did strongly encourage Pt to trying plan on her meals out a bit better providing her with a list of higher protein rich foods. We did discuss touching base with a adapted physical education teacher possibly at a gym more local supplements store along with continuing current dosing of Remeron to assist with weight gain. I did advised to call us monthly with her home weight gains and follow-up in 6 months for re-evaluation weight check Assessment & Plan (05/06/2018 2:18 PM PUTTY REMOVER): Trial Remeron starting off at 7.5 mg [...] 08/31/2017 Assessment & Plan (06/28/2022 12:37 PM PUTTY REMOVER): She was advised to quit smoking; the risks of continued tobacco use discussed. 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 Resolved Problems Problem Noted Date Diagnosed Date Resolved Date Hair loss 03/31/2020 01/06/2021 Assessment & Plan (03/31/2020 9:51 AM PUTTY REMOVER): There is a high chance this is [...] 05/06/2018 Assessment & Plan (05/06/2018 2:16 PM PUTTY REMOVER): Please refer to care plan under neck strain Neck strain, sequela 05/06/2018 019 Assessment & Plan (05/06/2018 2:16 PM PUTTY REMOVER): Recommended continuing current dosing of ibuprofen, no [...] did encourage her to bring in the [facility] paperwork for me to fill out as well Dermatitis of right foot 12/27/2016 Assessment & Plan (12/27/2016 8:50 AM CDT): Persistent. Try Lotrisone topically. Referral to Dermatology arranged. 28 weeks gestation of 12/27/2016 08/31/2017 Assessment & Plan (12/27/2016 8:50 AM CDT): Routine follow-up with system programmer as scheduled. Medical examinations/reports status 07/19/2015 08/31/2017 Overview (07/28/2016): Routine medical exam Malignant neoplasm of thyroid gland 04/01/2013 10/03/2018 Overview (07/26/2016): Thyroid cancer Assessment & Plan (05/06/2018 2:17 PM PUTTY REMOVER): Last TSH level was near detectable 0.03. Pt does likely need adjustment decreasing dose of her levothyroxine. Repeat TSH level with free T4 panic adjustments if indicated, faxing over 2 specialist office for their review as well considering hx of malignancy/thyroid replacement Bipolar 1 disorder, mixed 08/05/2011 Encounters Date Type Department Care Team Description 06/20/2024 Orders Only [facility] Primary Care at [address] [place] [address] Rudy Hinton MD from Last 3 Months Immunizations Immunization Administration Dates Next Due DTP / HiB 1994,1994,1994 DTaP, Unspecified 01/19/1999,07/18/1995 HPV, Unspecified 08/02/2007,02/28/2007, 7 Hep B, Unspecified 1994,1994, 994 HiB 04/18/1995 Influenza LAIV (Nasal) 12/22/2021(Deferr ed: Patient Refused),01/21/2021(Deferred: Patient Refused) Influenza, Quadrivalent, Spl it, Preservative Free, Intramuscular 03/04/2019,02/04/2018 Influenza, Unspecified 01/12/2023,2022(Deferred: Patient Refused),01/06/2021(Deferred: Patient Refused),01/22/2020(Deferred: Patient Refused),01/22/2020(Deferred: Patient Refused),01/30/2019(Deferred: Patient Refused),12/06/2018(Deferred: Not available from writing manager),02/04/2018 MMR 01/19/1999,04/18/1995 Meningococcal ACWY, Unspecified 03/11/2007 OPV 01/19/1999, 6,1994,03/22 PPD TEST 05/19/2019,07/19/2018 Tdap 03/24/2017,01/26/2017,01/28/2007 Varicella 10/13/2008,06/14/1998 Surgical History Surgery Date Site/Laterality Comments OTHER SURGICAL HISTORY thyroid removal OTHER SURGICAL HISTORY Genital HSV: outbreak at age 12; 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 Hx Other Medical 2009 Thyroid cancer Hx Other Medical Anxiety Social History Tobacco Use Types Packs/Day Years [...] on file Legal Sex Female 10:00 AM PUTTY REMOVER Gender Identity Female 08/29/2022 2:01 PM CDT Sexual Orientation Not on file Obstetrics History Para Term AB IAB SAB Ectopic Multiple Livin g Live Births 2 Date Outcome GA Total Labor Labor/2nd/3rd Weight Sex Type Anes PTL Amrita A1 A5 Name Clin Last Filed Vital Signs Vital Sign Reading [...] 10/22/2023 11:59 AM CDT Plan of Treatment Health Maintenance Due Date Last Done Comments Hepatitis C Screening 1994 Pneumococcal vaccine <65 (1 of 2 - PCV) 2013 Cervical Cancer Screening 04/14/2017 04/14/2016, Depression Screening 01/16/2024 01/15/2023, 06/28/2022, 01/09/2022, Additional history exists Regular Well Visit/Exam 18-64 10/17/2024, 01/15/2023, 01/09/2022, Additional history exists Influenza Vaccine (Season Ended) 2024 01/12/2023, 03/04/2019, 02/04/2018, Additional history exists DTaP/Tdap/Td Vaccine (9 - Td or Tdap) 03/24/2027 03/24/2017, 01/26/2017, 01/28/2007, Additional history exists Hepatitis B Screening Completed 1994 , 1994, 1994 HPV Vaccines Completed 08/02/2007, 11/2006, 01/28/2007 Varicella Vaccines Completed 10/13/2008, 06/14/1998 Procedures Procedure Name Priority Date/Time Associated Diagnosis Comments THINPREP TIS PAP REFLEX HPV MRNA E6/E7, CHLAMYDIA/N.GONORRH OEAE Routine 04/14/2016 4:14 PM PUTTY REMOVER from Last 3 Months or Most Recently Relevant to Health Maintenance Results * (ABNORMAL) THINPREP TIS PAP REFLEX HPV mRNA E6/E7, CHLAMYDIA/N.GONORRHOEAE (04/14/2016 4:14 PM PUTTY REMOVER) SOURCE: SEE NOTE [facility] HISTORICAL RESULTS Comment:Cervix, [...] clinical correlation and follow-up as clinically appropriate Pipe Finishing Supervisor SEE NOTE [facility] HISTORICAL RESULTS Comment: KMY, CT(ASCP) CT screening location: [place] [address] [place] [address] Review lip cutter SEE NOTE [facility] HISTORICAL RESULTS Comment: MLO, CT(ASCP) CT screening location: [place] [address] [address] SHANDA Mejia [facility] Pathologist SEE NOTE [facility] HISTORICAL RESULTS Comment: Kleber Feliz M.D., Board Certified in Anatomic Pathology and Cytopathology. (electronic signature) Test performed at [facility] [address] [address] Director: YESSY MOTA MD Infection: SEE NOTE [facility] HISTORICAL RESULTS Comment: Shift in vaginal garcia suggestive of bacterial vaginosis. 04/14/2016 4:14 PM PUTTY REMOVER Leslie Johnson MD LAB PATHOLOGY ORDER [place] Final Result [facility] HISTORICAL RESULTS from Last 3 Months or Most Recently Relevant to Health Maintenance Insurance [employer] [facility] UHC CHOICE PLUS [employer] Care Teams Correctional Treatment Specialist Relationship Specialty Start Date End Date Rudy Hinton MD PCP - General 07/21/16
--- OUTSIDE RECORDS SUMMARY | 2024-08-12 14:35 | XMS_ITS | Clinical Summary ---
Author Organization [facility] Address [address] [place] [address] Care Team Providers Care Glass Cutting Machine Operator Name Role Phone Unavailable Primary Care Provider Unavailabl e Source Comments [facility],non-owned Affiliates and Associated Physician Practices is amultiple site organization consisting of ambulatory clinics and hospital sitesin [place], [place], [place] and [place]. This disclosure is being madepursuant to the Care Everywhere program and may not contain all information available regarding this patient. Last updated 18.[facility] Allergies No known active allergies Medications * Be aware that medications may not be up to date on this document. Alwaysverify current medications with the patient. LOESTRIN 24 FE PO Take by mouth daily. Active Social History Tobacco Use Types Packs/Day Years Used Date Smoking Tobacco: Never Alcohol Use Standard Drinks/Week Comments No 0 (1 standard drink = 0.6 oz pur e alcohol) Comments Unknown Sex and Gender Information Value Date Recorded Sex Assigned at Not on file Legal Sex Female 8:41 AM TRAILER SECTIONS ASSEMBLER Gender Identity Not on file Sexual Orientation Not on file Last Filed Vital Signs Vital Sign Reading Time Taken Comments Blood Pressure 112/79 07/20/2009 4:15 PM CDT Pulse 70 07/20/2009 4:15 PM CDT Temperature 36.7 C (98.1 F) 07/20/2009 12:16 PM CDT Respiratory Rate 18 07/20/2009 4:15 PM CDT Oxygen Saturation 100% 07/20/2009 4:15 PM CDT Inhaled Oxygen Concentration - - Weight 41.7 kg (92 lb) 07/20/2009 12:16 PM CDT Height 157.5 cm (5' 2 ) 07/20/2009 12:16 PM CDT Body Mass Index 16.83 07/20/2009 12:16 PM CDT Plan of Treatment Health Maintenance Due Date Last Done Comments PAP SMEAR 1994 HIV SCREENING 2009 HEPATITIS C SCREENING 01/16/2012 DTAP/TDAP/TD VACCINES (1 - Tdap) 2013 HEPATITIS B VACCINE (1 of 3 - 19+ 3-dose series) 2013 COVID-19 VACCINE (1 - 2023-2 5 season) 2023 DEPRESSION SCREENING 04/23/2024 INFLUENZA VACCINE (Season Ended) 2024 ZOSTER VACCINE (1 of 2) 01/21/2044 HIB VACCINE Aged Out No longer eligi ble based on patient's age to complete this topic HPV VACCINE Aged Out No longer eligi ble based on patient's age to complete this topic MENINGOCOCCAL (Group B) VACC INE SHARED DECISION-MAKING Aged Out No longer eligibl e based on patient's age to complete this topic MENINGOCOCCAL GROUPS A/C/Y/W VACCINE Aged Out No longer eligible b ased on patient's age to complete this topic PNEUMOCOCCAL VACCINE Aged Out No long er eligible based on patient's age to complete this topic Insurance [facility]
--- OUTSIDE RECORDS SUMMARY | 2024-08-12 14:35 | XMS_ITS | Clinical Summary ---
Author Organization [facility] Address [address] [place] [address] Phone Care Team Providers Care Communication Consultant Name Role Phone Rudy Hinton MD Primary Care Provider Allergies Active Allergy Reactions Criticality Noted Date Comments Penicillins Vomiting 04/26/2021 Medications omeprazole (PRILOSEC) 40 MG CAPSULE DELAYED RELEASE Take 1 Cap by mouth daily. 30 Cap 5 6 Active Additional Information Patient not taking.Reported on 09/06/2022 metoclopramide (REGLAN) 5 MG Tablet Take 1 Tablet by mouth 4 times daily as needed for Nausea - 1st line. 20 Tablet 2 Active Additional Information Patient not taking.Reported on 01/19/2022 levothyroxine (SYNTHROID) 200 MCG Tablet Take 200 mcg by mouth daily. 2 Active levothyroxine (SYNTHROID) 25 MCG Tablet Take 25 mcg by mouth daily. 2 Active tiZANidine (ZANAFLEX) 2 MG Tablet Take 2 mg by mouth. 2 Active valACYclovir (VALTREX) 500 MG Tablet TAKE ONE TABLET BY MOUTH ONCE DAILY 1 Active guaiFENesin (Mucinex) 600 MG TABLET SR 12 HRIndications:B ronchitis Take 1 Tablet by mouth 2 times daily. 180 Tablet 3 2 Active Additional Information Patient not taking.Reported on 09/06/2022 fluticasone (FLONASE) 50 MCG/ACT SuspensionIndic ations:Bronchit is 1-2 Sprays by Nasal route daily. Use in each nostril as directed. 15.8 mL 2 Active buPROPion (WELLBUTRIN) 150 MG XL tablet Take 150 mg by mouth. 3 Active ofloxacin (OCUFLOX) 0.3 % Solution Place 1 Drop in affected eye(s) 4 times daily. 5 mL 3 Active Active Problems No known active problems Social History Tobacco Use Types Packs/Day Years Used Date Smoking Tobacco: Every Day Cigarettes Smokeless Tobacco: Never Tobacco Cessation:Ready to Q uit: Not Asked; Counseling Given: Not Answered Alcohol Use Standard Drinks/Week Comments Yes 0 (1 standard drink = 0.6 oz pur e alcohol) not often Comments Unknown Sex and Gender Information Value Date Recorded Sex Assigned at Not on file Legal Sex Female 10:02 PM CDT Gender Identity Not on file Sexual Orientation Not on file Last Filed Vital Signs Vital Sign Reading Time Taken Comments Blood Pressure 118/62 09/06/2022 8:39 AM CDT Pulse 62 09/06/2022 8:39 AM CDT Temperature 36.7 C (98.1 F) 09/06/2022 8:39 AM CDT Respiratory Rate 18 09/06/2022 8:39 AM CDT Oxygen Saturation 99% 09/06/2022 8:39 AM CDT Inhaled Oxygen Concentration - - Weight 52.2 kg (115 lb) 09/06/2022 8:39 AM CDT Height 157.5 cm (5' 2 ) 09/06/2022 8:39 AM CDT Body Mass Index 21.03 09/06/2022 8:39 AM CDT Plan of Treatment Health Maintenance Due Date Last Done Comments Hepatitis C Virus (HCV) Screening 1994 Pneumococcal Immunization Combined (1 of 2 - PCV) 2013 Pap Smear 2015 Influenza Immunization (#1) 12/23/202302/21, 02/04/2018, 02/03/2018 SARS-COV-2 Immunization ( season) 2023 02/08/2022, 04/23/2021, 03/15/2021 Cervical Cancer Screening (CCS) 01/21/2024 HPV/Cotest 01/21/2024 Respiratory Syncytial Virus (RSV) Immunization (Adult) (1 - 1-dose 75+ series) 2069 Hepatitis B Immunization Completed 995, 1994, 1994 Meningococcal Immunization (ACWY) Aged Out 03/11/2007 No longer eligible based on patient's age to complete this topic Human Papillomavirus (HPV) Immunization Discontinued 08/02/2007, 02/28/2007, 01/28/2007 DTaP/Tdap/Td Immunization Discontinued 2016, 01/26/2017, 01/28/2007, Additional history exists TdaP Immunization Completed 03/24/2017, , 01/28/2007 Rotavirus Immunization Aged Out No lo nger eligible based on patient's age to complete this topic Insurance MEDICAID [employer] Care Teams Communication Consultant Relationship Specialty Start Date End Date Rudy Hinton MD [address] [place] [address] DR BANEGAS [address] [place] [phone] PCP - General Internal Medicine 04/26/21
[2024-08-12 15:29] LABS: OBXCEM ROM Plus Negative (Negative)
== END 2024-08-12 17:10 | disposition home or self-care (01) ==
PROVIDERS: Admitting Provider Obstetrics & Gynecology; PCP Internal Medicine; Visit Provider Obstetrics & Gynecology
DX: O47.03 False labor before 37 completed weeks of gestation, third trimester (principal); Z3A.36 36 weeks gestation of pregnancy
CPT/HCPCS: 76815; 84112; G0378; G0379

== ENCOUNTER 2024-08-20 14:30 | Outpatient (RCR) | payer OTHER, SELFPAY ==
[2024-08-20 18:50] VITALS: BP 92/62; PULSE 86
== END 2024-09-15 08:31 | disposition home or self-care (01) ==
LOC: ANHOBOP 14:30
PROVIDERS: PCP Internal Medicine; Visit Provider Obstetrics & Gynecology
DX: O09.293 Supervision of pregnancy with other poor reproductive or obstetric history, third trimester (principal); Z3A.38 38 weeks gestation of pregnancy
CPT/HCPCS: 59025

== ENCOUNTER 2024-08-31 12:44 | Inpatient (IN) | payer OTHER, SELFPAY ==
[2024-08-31] VITALS (34 sets, daily range): BP systolic 100–118; BP diastolic 54–78; PULSE 71–100; RESP 16; TEMP 36.7–37; O2SAT 97–100; BMI 21.5
--- OUTSIDE RECORDS SUMMARY | 2024-08-31 13:27 | XMS_ITS | Encounter Summary ---
Author Organization [facility] Address [address] [place] [address] Phone Care Team Providers Care Silo Man Name Role Phone Rudy Hinton MD Primary Care Provider Encounter Details Date Type Department Care Team (Late st Contact Info) Description 08/29/2024 Results Follow-Up [facility] Endocrinology Metabolism and Lipid [address] Advanced Medicine [address]th [place] [address] [place] [address] Jonn Jasso MD [address] [place] [address] Social History Tobacco Use Types Packs/Day Years Used Date Smoking Tobacco: Every Day Cigarettes 1 12 Started: 06/03/2006; Last attempted to quit: 06/03/2018 Smokeless Tobacco: Never Comments:Smoking History Pac ks/day: 1 Packs Alcohol Use Standard Drinks/Week Comments [...] you feel afraid or unsafe? Denies 05/31/2023 Estimated Date of Delivery Comme nts Yes 09/04/2024 Sex and Gender Information Value Date Recorded Sex Assigned at Not on file Legal Sex Female 10:00 AM RECYCLING OPERATIONS MANAGER Gender Identity Female 08/29/2022 2:01 PM CDT Sexual Orientation Not on file documented as of this encounter Miscellaneous Notes * Result Encounter Note - Jonn Jasso MD - 08/29/2024 2:53 PM CDT Kindly notify patient to let her OB know , see message I send her now on [email or web address] documented in this encounter Plan of Treatment Not on file documented as of this encounter Visit Diagnoses Not on filedocumented in this encounter Care Teams Silo Man Relationship Specialty Start Date End Date Rudy Hinton MD PCP - General 07/21/16 documented as of this encounter
--- OUTSIDE RECORDS SUMMARY | 2024-08-31 13:27 | XMS_ITS | Clinical Summary ---
Author Organization [facility] Address [address] [place] [address] Phone Care Team Providers Care Payroll Benefits Administrator Name Role Phone Rudy Hinton MD Primary [...] this topic Insurance [employer]ICA[employer] Care Teams Payroll Benefits Administrator Relationship Specialty Start Date End Date Rudy Hinton MD [address] [place] [address] DR BANEGAS [address] [place] [phone] PCP - General Internal Medicine 04/26/21
--- OUTSIDE RECORDS SUMMARY | 2024-08-31 13:27 | XMS_ITS | Clinical Summary ---
Author Organization [facility] [employer] Address [address] [place] [address] Care Team Providers Care Operations Examiner Name Role Phone Unavailable Primary Care Provider Unavailabl e Source Comments [facility] [employer],non-owned Affiliates and Associated Physician Practices is amultiple site organization consisting of ambulatory clinics and hospital sitesin [place], [place], [place] and [place]. This disclosure is being madepursuant to the Care Everywhere program and may not contain all information available regarding this patient. Last updated 18.[facility] [employer] Allergies No known active allergies Medications * [...] on file Legal Sex Female 8:41 AM BILLING CONTROL CLERK Gender Identity Not on file Sexual Orientation [...] patient's age to complete this topic Insurance [facility]
--- OUTSIDE RECORDS SUMMARY | 2024-08-31 13:27 | XMS_ITS | Clinical Summary ---
Author Organization [facility] Building A Address [address] [place] [address] Care Team Providers Care Customer Associate Name Role Phone Rudy Hinton MD Primary [...] mouth daily 90 tablet 3 12/07/2023 Active busPIRone (BUSPAR) 15 mg tablet Take 1 tablet (15 mg total) by mouth 2 (two) times a day 08/13/2024 Active famotidine (PEPCID) 20 mg tablet Take 1 tablet (20 mg total) by mouth 2 (two) times a day Active Active Problems Problem Noted Date Diagnosed Date 35 weeks gestation of 08/25/2024 Assessment & Plan (08/25/2024 9:42 AM CDT): Closely followed by OBGYN locally Due date this month TFT 4-6 weeks after she gives History of papillary adenocarcinoma of thyroid 0 [...] interim. Post-surgical hypothyroidism 08/26/2018 Assessment & Plan (08/25/2024 9:40 AM CDT): On levothyroxine 200 mcg Will obtain labs TFT monitored while per OBGYN locally Assessment & Plan (08/21/2023 12:34 PM CDT): [...] level Assessment & Plan (03/31/2020 9:49 AM PRINTED CIRCUIT BOARD DESIGNER): Advised to increase levothyroxine dose by one [...] With current dosing of levothyroxine F/U with food inspector as scheduled Assessment & Plan (08/26/2018 2:32 PM CDT): Will check TSH and adjust dose accordingly Continue levothyroxine current dose Papillary thyroid carcinoma 08/26/2018 Assessment & Plan (08/25/2024 9:40 AM CDT): No evidence of recurrence per US Will obtain labs TFT monitored while per OBGYN locally Assessment & Plan (08/21/2023 12:34 PM CDT): [...] levothyroxine Assessment & Plan (03/31/2020 9:50 AM PRINTED CIRCUIT BOARD DESIGNER): No evidence of recurrence per last year [...] With current dosing of levothyroxine F/U with food inspector as scheduled Assessment & Plan (08/26/2018 2:32 [...] month Assessment & Plan (06/04/2018 3:16 PM PRINTED CIRCUIT BOARD DESIGNER): Cnt. With current dosing of Remeron considering increase in appetite and 4 lb weight gain. I did strongly encourage Pt to trying plan on her meals out a bit better providing her with a list of higher protein rich foods. We did discuss touching base with a bundle clerk possibly at a gym more local supplements store along with continuing current dosing of Remeron to assist with weight gain. I did advised to call us monthly with her home weight gains and follow-up in 6 months for re-evaluation weight check Assessment & Plan (05/06/2018 2:18 PM PRINTED CIRCUIT BOARD DESIGNER): Trial Remeron starting off at 7.5 mg [...] 08/31/2017 Assessment & Plan (06/28/2022 12:37 PM PRINTED CIRCUIT BOARD DESIGNER): She was advised to quit smoking; the risks of continued tobacco use discussed. 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 Estimated Date of Delivery Comme nts Yes 09/04/2024 Resolved Problems Problem Noted Date Diagnosed Date Resolved Date Hair loss 03/31/2020 01/06/2021 Assessment & Plan (03/31/2020 9:51 AM PRINTED CIRCUIT BOARD DESIGNER): There is a high chance this is [...] 05/06/2018 Assessment & Plan (05/06/2018 2:16 PM PRINTED CIRCUIT BOARD DESIGNER): Please refer to care plan under neck strain Neck strain, sequela 05/06/2018 019 Assessment & Plan (05/06/2018 2:16 PM PRINTED CIRCUIT BOARD DESIGNER): Recommended continuing current dosing of ibuprofen, no [...] did encourage her to bring in the [facility] paperwork for me to fill out as well Dermatitis of right foot 12/27/2016 Assessment & Plan (12/27/2016 8:50 AM CDT): Persistent. Try Lotrisone topically. Referral to Dermatology arranged. 28 weeks gestation of 12/27/2016 08/31/2017 Assessment & Plan (12/27/2016 8:50 AM CDT): Routine follow-up with steward/stewardess economy class as scheduled. Medical examinations/reports status 07/19/2015 08/31/2017 Overview (07/28/2016): Routine medical exam Malignant neoplasm of thyroid gland 04/01/2013 10/03/2018 Overview (07/26/2016): Thyroid cancer Assessment & Plan (05/06/2018 2:17 PM PRINTED CIRCUIT BOARD DESIGNER): Last TSH level was near detectable 0.03. Pt does likely need adjustment decreasing dose of her levothyroxine. Repeat TSH level with free T4 panic adjustments if indicated, faxing over 2 specialist office for their review as well considering hx of malignancy/thyroid replacement Bipolar 1 disorder, mixed 08/05/2011 Encounters Date Type Department Care Team Description 08/29/2024 Results Follow-Up [facility] Endocrinology Metabolism and Lipid [address] [facility] Advanced Medicine 13th [place] [address] [place] [address] Jonn Jasso MD 08/25/2024 9:45 AM CDT Lab [facility] [place] - Lab Collection [address] [facility] [address] [place] [address] Papillary thyroid carcinoma (HCC); Post-surgical hypothyroidism 08/25/2024 9:20 AM CDT Office Visit [facility] Endocrinology Metabolism and Lipid [address] [facility] Floor 1, [address] [place] [address] Jonn Jasso MD Papillary thyroid carcinoma (HCC) (Primary Dx); Post-surgical hypothyroidism; 35 weeks gestation of 08/25/2024 8:21 AM CDT - 08/25/2024 11:59 PM CDT Hospital Encounter [facility] [address] [place] [address] Papillary thyroid carcinoma (HCC) Discharge Disposition: Discharge to home or self care 08/12/2024 Orders Only [facility] [address] [place] [address] Rudy Hinton MD 06/20/2024 Orders Only [facility] Primary Care at [address] [place] [address] Rudy Hinton MD from Last [...] Patient Refused),01/30/2019(Deferred: Patient Refused),12/06/2018(Deferred: Not available from baler operator),02/04/2018 MMR 01/19/1999,04/18/1995 Meningococcal ACWY, Unspecified 03/11/2007 OPV [...] Other Medical 2015 Abnormal pap ea rly 2015 Hx Other Medical 2013 ; Comm ents: [...] on file Legal Sex Female 10:00 AM PRINTED CIRCUIT BOARD DESIGNER Gender Identity Female 08/29/2022 2:01 PM CDT Sexual Orientation Not on file Obstetrics History Para Term AB IAB SAB Ectopic Multiple Livin g Live Births 3 Date Outcome GA Total Labor Labor/2nd/3rd Weight Sex Type Anes PTL Amrita A1 A5 Name Clin Current Last Filed Vital Signs Vital Sign Reading Time Taken Comments Blood Pressure 95/66 08/25/2024 9:16 AM CDT Pulse 70 08/25/2024 9:16 AM CDT Temperature 36.4 C (97.6 F) 08/25/2024 9:16 AM CDT Respiratory Rate 17 08/25/2024 9:16 AM CDT Oxygen Saturation 98% 08/25/2024 9:16 AM CDT Inhaled Oxygen Concentration - - Weight 52.3 kg (115 lb 3.2 oz) 08/25/2024 9:16 A M CDT Height 157.5 cm (5' 2.01 ) 08/25/2024 9:16 AM CD T Body Mass Index 21.06 08/25/2024 9:16 AM CDT Plan of Treatment Health Maintenance [...] Procedure Name Priority Date/Time Associated Diagnosis Comments REFLEX THYROGLOBULIN, TUMOR MARKER, IA, S Routine 08/25/2024 9:55 AM CDT EGFR Routine 08/25/2024 9:55 AM CDT Papillary thyroid carcinoma (HCC) THYROGLOBULIN REFLEX TO MS OR IA Routine 08/25/2024 9:55 AM CDT Papillary thyroid carcinoma (HCC) RENAL FUNCTION PANEL Routine 08/25/2024 9:55 AM CDT Papillary thyroid carcinoma (HCC) T4, FREE Routine 08/25/2024 9:55 AM CDT Papillary thyroid carcinoma (HCC) Post-surgical hypothyroidism TSH Routine 08/25/2024 9:55 AM CDT Papillary thyroid carcinoma (HCC) Post-surgical hypothyroidism US SOFT TISSUE HEAD NECK Schedule Routine, Read Routine (OP Routine) 08/25/2024 8:59 AM CDT Papillary thyroid carcinoma (HCC) SCAN - RADIOLOGY/IMAGING 08/12/2024 THINPREP TIS PAP REFLEX HPV MRNA E6/E7, CHLAMYDIA/N.GONORRHO EAE Routine 04/14/2016 4:14 PM PRINTED CIRCUIT BOARD DESIGNER from Last 3 Months or Most Recently Relevant to Health Maintenance Results * Reflex thyroglobulin, tumor marker, IA, S (08/25/2024 9:55 AM CDT) Thyroglobulin, Tumor Marker <0.1 < or = 33 ng/mL [facility] Thyroglobulin interp See Footnote JEREMY SCHULZ Comment: Thyroglobulin (Tg) reference intervals are for patients with an intact thyroid and not for patients who have had surgery for thyroid cancer. Tg reference intervals in patients that have undergone thyroidectomy or any treatment for follicular thyroid cancer are dependent on the residual mass of the thyroid tissue after surgery. Tg results, regardless of concentration, should not be interpreted as absolute evidence for the presence or absence of papillary or follicular thyroid cancer. This result needs to be interpreted in the context of the clinical evaluation. ADDITIONAL INFORMATION PLEASE NOTE: The given cutoff of <1.8 IU/mL is for the detection of potential thyroglobulin antibody (TgAb) interference in thyroglobulin immunoassays. A thyroglobulin antibody (TgAb) reference cutoff of <4.0 IU/mL may be more suitable for the evaluation of autoimmune thyroiditis. The thyroglobulin and thyroglobulin antibody testing methods are immunoenzymatic assays manufactured by [employer] and performed on the [employer] DXI 800. Values obtained from different assay methods or kits may be different and cannot be used interchangeably. The results cannot be interpreted as absolute evidence for the presence or absence of malignant disease. Test Performed by: [place] [address] [facility] Teacher: Scarlet Burnette Ph.D.; CLIA# [id number] Blood 08/25/2024 9:55 AM CDT 08/25/2024 11:48 AM CDT us Jonn Jasso MD LAB BLOOD ORDERABLES Final Resu lt JEREMY MOE [facility] Department [place] [address] [facility] * eGFR (08/25/2024 9:55 AM CDT) eGFR >90 >=60 mL/min/1. 73 m2 Comment: Interpretive Data Reference Interval Normal >/= 90 mL/min/1.73m2 Mildly decreased* 60 - 89 mL/min/1.73m2 Mildly to moderately decreased 45 - 59 mL/min/1.73m2 Moderately to severely decreased 30 - 44 mL/min/1.73m2 Severely decreased 15 - 29 mL/min/1.73m2 Kidney Failure < 15 mL/min/1.73m2 *Relative to young adult level Estimated glomerular filtration rate is determined by the 2020 CKD-EPI equation recommended by the National Kidney Foundation (A Unifying Approach to GFR Estimation: Recommendations of the NKF-ASK Task Force on Reassessing the Inclusion of Race in Diagnosing Kidney Disease, JASN 2020). The CKD-EPI equation should not be used for patients with unstable renal function and has not been validated in children and those over 70. Current interpretive data was last reviewed 2021. Blood 08/25/2024 9:55 AM CDT 08/25/2024 9:58 AM CDT Jonn Jasso MD LAB BLOOD ORDERABLES Final Resu lt Performing Organization Address City/[facility] Co de Phone Number JEREMY [facility] [place] [address] * Thyroglobulin reflex to MS or IA (08/25/2024 9:55 AM CDT) Anti-thyroglobulin <1.8 <1.8 IUnits/mL [facility] Comment: Thyroglobulin Antibody < 1.8 IU/mL. Thyroglobulin performed by Immunoassay to follow. Test Performed by: [facility] [address] [place] [address] [facility] Teacher: Scarlet Burnette Ph.D.; CLIA# [id number] Blood 08/25/2024 9:55 AM CDT 08/25/2024 11:48 AM CDT Jonn Jasso MD LAB BLOOD ORDERABLES Final Resu lt JEREMY [facility] [place] [address] [facility] * (ABNORMAL) TSH (08/25/2024 9:55 AM CDT) Pathologist [facility] Thyroid Stimulating Hormone 10.20(H) 0.30 - 4.20 mcIUnit/mL Blood 08/25/2024 9:55 AM CDT 08/25/2024 9:58 AM CDT Jonn Jasso MD LAB BLOOD ORDERABLES Final Resu lt Performing Organization Address [facility] Co de Phone Number [facility] [place] [address] * T4, free (08/25/2024 9:55 AM CDT) Pathologist [facility] Free T4 1.10 0.90 - 1.70 ng/dL Blood 08/25/2024 9:55 AM CDT 08/25/2024 9:58 AM CDT Jonn Jasso MD LAB BLOOD ORDERABLES Final Resu lt Performing Organization Address [facility] de Phone Number [facility] Department [place] [address] * Renal function panel (08/25/2024 9:55 AM CDT) Pathologist [facility] Sodium 137 135 - 145 mmol/L Potassium, pl 4.3 3.3 - 4.9 mmol/L [facility] Chloride 105 97 - 110 mmol/L [facility] CO2 24 22 - 32 mmol/L [facility] Anion gap 8 2 - 15 mmol/L [facility] BUN 8 6 - 25 mg/dL [facility] Creatinine 0.62 0.60 - 1.10 mg/dL [facility] Glucose 81 70 - 199 mg/dL [facility] Comment: Interpretive Data Fasting glucose >/= 126 mg/dl is diagnostic for diabetes. Fasting is defined as no caloric intake for at least 8 hours. Fasting glucose between 100 mg/dl to 125 mg/dl is diagnostic of prediabetes. In a patient with classic symptoms of hyperglycemia or hyperglycemic crisis, a random glucose >/= 200 mg/dl is diagnostic for diabetes. In the absence of unequivocal hyperglycemia, results should be confirmed by repeat testing. The classification and Diagnosis of Diabetes Diabetes Care 2021; 46: S19-S40. Current interpretive data was last revised 2022. Calcium 8.8 8.5 - 10.3 mg/dL [facility] Phosphorus, pl 3.0 2.3 - 4.5 mg/dL [facility] Albumin 3.8 3.5 - 5.0 g/dL [facility] Blood 08/25/2024 9:55 AM CDT 08/25/2024 9:58 AM CDT us Jonn Jasso MD LAB BLOOD ORDERABLES Final Resu lt [facility] [place] [address] * US Head Neck Soft Tissue (08/25/2024 8:59 AM CDT) Anatomical Region Laterality Modality Head and Neck N/A Ultrasound 08/25/2024 9:17 AM CDT Impressions 08/25/2024 9:17 AM CDT 1. No evidence of tumor recurrence. Electronically signed by: Nael Addison M.D. Narrative 08/25/2024 9:17 AM CDT EXAMINATION: POST THYROIDECTOMY SONOGRAM HISTORY: 1.3 cm papillary thyroid carcinoma resected 15 years ago. The ER and AF positive. Radioactive iodine treatment in October 2009 and 2010.. COMPARISON: None FINDINGS: There are postoperative changes of thyroidectomy. There is no evidence of tumor recurrence in the thyroid bed. There are benign appearing lymph nodes within both lateral compartments of the neck. No suspicious lymph nodes are identified. Procedure Note Nael Addison MD - 08/25/2024 EXAMINATION: POST THYROIDECTOMY SONOGRAM HISTORY: 1.3 cm papillary thyroid carcinoma resected 15 years ago. The ER and AF positive. Radioactive iodine treatment in October 2009 and 2010.. COMPARISON: None FINDINGS: There are postoperative changes of thyroidectomy. There is no evidence of tumor recurrence in the thyroid bed. There are benign appearing lymph nodes within both lateral compartments of the neck. No suspicious lymph nodes are identified. IMPRESSION: 1. No evidence of tumor recurrence. Electronically signed by: Nael Addison M.D. Jonn Jasso MD IMG US PROCEDURES Final Result * SCAN - RADIOLOGY/IMAGING (08/12/2024) Anatomical Region Laterality Modality Other Rudy Hinton MD Final R esult * (ABNORMAL) THINPREP TIS PAP REFLEX HPV mRNA E6/E7, CHLAMYDIA/N.GONORRHOEAE (04/14/2016 4:14 PM PRINTED CIRCUIT BOARD DESIGNER) SOURCE: SEE NOTE [facility] HISTORICAL RESULTS Comment:Cervix, [...] clinical correlation and follow-up as clinically appropriate Bench Hand SEE NOTE [facility] HISTORICAL RESULTS Comment: KMY, CT(ASCP) CT screening location: [place] [address] [place] [address] Review slp SEE NOTE [facility] HISTORICAL RESULTS Comment: MLO, CT(ASCP) CT screening location: [address] [place] [address] Pathologist SEE NOTE [facility] HISTORICAL RESULTS Comment: Kleber Feliz M.D., Board Certified in Anatomic Pathology and Cytopathology. (electronic signature) [place] [id number] Director: YESSY MOTA MD Infection: SEE NOTE [facility] HISTORICAL RESULTS Comment: Shift in vaginal garcia suggestive of bacterial vaginosis. 04/14/2016 4:14 PM PRINTED CIRCUIT BOARD DESIGNER Leslie Johnson MD LAB PATHOLOGY ORDER [place] Final Result [facility] HISTORICAL RESULTS from Last 3 Months or Most Recently Relevant to Health Maintenance Insurance [facility] UHC CHOICE PLUS [facility] Care Teams Customer Associate Relationship Specialty Start Date End Date Rudy Hinton MD PCP - General 07/21/16
--- OUTSIDE RECORDS SUMMARY | 2024-08-31 13:27 | XMS_ITS | Referral Summary ---
Author Organization [facility] Medical Office Building A Address [address] [place] [address] Care Team Providers Care Concrete Engineering Technician Name Role Phone Rudy Hinton MD Primary Care Provider Encounters Date Type Department Care Team Description 08/29/2024 Results Follow-Up [facility] Endocrinology Metabolism and Lipid [address] [facility] 13th [place] [address] [place] [phone] Jonn Jasso MD 08/25/2024 9:45 AM CDT Lab [facility] - Lab Collection [address] [facility] Floor [address] [place] [address] Papillary thyroid carcinoma (HCC); Post-surgical hypothyroidism 08/25/2024 8:21 AM CDT - 08/25/2024 11:59 PM CDT Hospital Encounter [facility] [address] [place] [address] Papillary thyroid carcinoma (HCC) Discharge Disposition: Discharge to home or self care 08/25/2024 9:20 AM CDT Office Visit [facility] Endocrinology Metabolism and Lipid [address] [facility] Floor 1, [address] [place] [phone] Jonn Jasso MD Papillary thyroid carcinoma (HCC) (Primary Dx); Post-surgical hypothyroidism; 35 weeks gestation of 08/12/2024 Orders Only [facility] Health Information Management [address] [place] [address] Rudy Hinton MD 06/20/2024 Orders Only [facility] Primary Care at [address] [place] [address] Rudy Hinton MD from Last [...] level Assessment & Plan (03/31/2020 9:49 AM BUSINESS AND MARKETING TEACHER): Advised to increase levothyroxine dose by one [...] With current dosing of levothyroxine F/U with amortization clerk as scheduled Assessment & Plan (08/26/2018 2:32 [...] levothyroxine Assessment & Plan (03/31/2020 9:50 AM BUSINESS AND MARKETING TEACHER): No evidence of recurrence per last year [...] With current dosing of levothyroxine F/U with amortization clerk as scheduled Assessment & Plan (08/26/2018 2:32 [...] month Assessment & Plan (06/04/2018 3:16 PM BUSINESS AND MARKETING TEACHER): Cnt. With current dosing of Remeron considering increase in appetite and 4 lb weight gain. I did strongly encourage Pt to trying plan on her meals out a bit better providing her with a list of higher protein rich foods. We did discuss touching base with a it administrator possibly at a gym more local supplements store along with continuing current dosing of Remeron to assist with weight gain. I did advised to call us monthly with her home weight gains and follow-up in 6 months for re-evaluation weight check Assessment & Plan (05/06/2018 2:18 PM BUSINESS AND MARKETING TEACHER): Trial Remeron starting off at 7.5 mg [...] 08/31/2017 Assessment & Plan (06/28/2022 12:37 PM BUSINESS AND MARKETING TEACHER): She was advised to quit smoking; the risks of continued tobacco use discussed. 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 Estimated Date of Delivery Comme nts Yes 09/04/2024 Resolved Problems Problem Noted Date Diagnosed Date Resolved Date Hair loss 03/31/2020 01/06/2021 Assessment & Plan (03/31/2020 9:51 AM BUSINESS AND MARKETING TEACHER): There is a high chance this is [...] 05/06/2018 Assessment & Plan (05/06/2018 2:16 PM BUSINESS AND MARKETING TEACHER): Please refer to care plan under neck strain Neck strain, sequela 05/06/2018 019 Assessment & Plan (05/06/2018 2:16 PM BUSINESS AND MARKETING TEACHER): Recommended continuing current dosing of ibuprofen, no [...] did encourage her to bring in the [facility] paperwork for me to fill out as well Dermatitis of right foot 12/27/2016 Assessment & Plan (12/27/2016 8:50 AM CDT): Persistent. Try Lotrisone topically. Referral to Dermatology arranged. 28 weeks gestation of 12/27/2016 08/31/2017 Assessment & Plan (12/27/2016 8:50 AM CDT): Routine follow-up with supervisor line department as scheduled. Medical examinations/reports status 07/19/2015 08/31/2017 Overview (07/28/2016): Routine medical exam Malignant neoplasm of thyroid gland 04/01/2013 10/03/2018 Overview (07/26/2016): Thyroid cancer Assessment & Plan (05/06/2018 2:17 PM BUSINESS AND MARKETING TEACHER): Last TSH level was near detectable 0.03. [...] Patient Refused),01/30/2019(Deferred: Patient Refused),12/06/2018(Deferred: Not available from communications programmer),02/04/2018 MMR 01/19/1999,04/18/1995 Meningococcal ACWY, Unspecified 03/11/2007 OPV [...] on file Legal Sex Female 10:00 AM BUSINESS AND MARKETING TEACHER Gender Identity Female 08/29/2022 2:01 PM CDT [...] 08/25/2024 9:16 AM CDT Plan of Treatment Not on [...] E6/E7, CHLAMYDIA/N.GONORRHO EAE Routine 04/14/2016 4:14 PM BUSINESS AND MARKETING TEACHER from Last 3 Months or Most Recently Relevant to Health Maintenance Results * Reflex thyroglobulin, tumor marker, IA, S (08/25/2024 9:55 AM CDT) Thyroglobulin, Tumor Marker <0.1 < or = 33 ng/mL [place] ref Lab Thyroglobulin interp See Footnote JEREMY [...] testing methods are immunoenzymatic assays manufactured by [employer] and performed on the Cenoplex DXI 800. Values obtained from different assay methods or kits may be different and cannot be used interchangeably. The results cannot be interpreted as absolute evidence for the presence or absence of malignant disease. Test Performed by: [address] [address] Hypo Splasher: Scarlet Burnette Ph.D.; CLIA# [id number] Blood 08/25/2024 9:55 AM CDT 08/25/2024 11:48 AM CDT us Jonn Jasso MD LAB BLOOD ORDERABLES Final Resu lt JEREMY MOE [facility] Department [place] [address] [facility] ref Lab * eGFR (08/25/2024 9:55 AM [...] MD LAB BLOOD ORDERABLES Final Resu lt [facility] One [facility] Department [place] [address] * Thyroglobulin reflex to MS or IA (08/25/2024 9:55 AM CDT) Anti-thyroglobulin <1.8 <1.8 IUnits/mL [facility] ref Lab Comment: Thyroglobulin Antibody < 1.8 IU/mL. Thyroglobulin performed by Immunoassay to follow. Test Performed by: [facility] [address] [place] [id number] Hypo Splasher: Scarlet Burnette Ph.D.; CLIA# [id number] Blood 08/25/2024 9:55 AM CDT 08/25/2024 11:48 AM CDT Jonn Jasso MD LAB BLOOD ORDERABLES Final Resu lt Performing Organization Address [facility] Co de Phone Number [facility] [place] [address] Gay ref Lab * (ABNORMAL) TSH (08/25/2024 9:55 AM CDT) Pathologist [facility] Thyroid Stimulating Hormone 10.20(H) 0.30 - 4.20 mcIUnit/mL Blood 08/25/2024 9:55 AM CDT 08/25/2024 9:58 AM CDT Jonn Jasso MD LAB BLOOD ORDERABLES Final Resu lt Performing Organization Address [facility] de Phone Number [facility] [place] [address] * T4, free (08/25/2024 9:55 AM CDT) [facility] Free T4 1.10 0.90 - 1.70 ng/dL Blood 08/25/2024 9:55 AM CDT 08/25/2024 9:58 AM CDT Jonn Jasso MD LAB BLOOD ORDERABLES Final Resu lt Performing Organization Address [facility] Co de Phone Number [facility] [place] [address] * Renal function panel (08/25/2024 9:55 AM CDT) Pathologist [facility] Sodium 137 135 - 145 mmol/L Potassium, pl 4.3 3.3 - 4.9 mmol/L [facility] Chloride 105 97 - 110 mmol/L [facility] CO2 24 22 - 32 mmol/L [facility] Anion gap 8 2 - 15 mmol/L [facility] BUN 8 6 - 25 mg/dL [facility] Creatinine 0.62 0.60 - 1.10 mg/dL [facility] Glucose 81 70 - 199 mg/dL [facility] Comment: Interpretive Data Fasting glucose >/= [...] 2022. Calcium 8.8 8.5 - 10.3 mg/dL [facility] Phosphorus, pl 3.0 2.3 - 4.5 mg/dL [facility] Albumin 3.8 3.5 - 5.0 g/dL [facility] Blood 08/25/2024 9:55 AM CDT 08/25/2024 9:58 AM CDT us Jonn Jasso MD LAB BLOOD ORDERABLES Final Resu lt [facility] One [facility] Department [place] [address] * US Head Neck Soft Tissue (08/25/2024 [...] recurrence. Electronically signed by: Nael Addison M.D. us Jonn Jasso MD IMG US PROCEDURES Final Result * SCAN - RADIOLOGY/IMAGING (08/12/2024) Anatomical Region Laterality Modality Other us Rudy Hinton MD Final R esult * (ABNORMAL) THINPREP TIS PAP REFLEX HPV mRNA E6/E7, CHLAMYDIA/N.GONORRHOEAE (04/14/2016 4:14 PM BUSINESS AND MARKETING TEACHER) SOURCE: SEE NOTE [facility] HISTORICAL RESULTS Comment:Cervix, [...] clinical correlation and follow-up as clinically appropriate Editor Continuity And Script SEE NOTE [facility] HISTORICAL RESULTS Comment: KMY, CT(ASCP) CT screening location: [place] [address] [place] [address] Review alumnae secretary SEE NOTE [facility] HISTORICAL RESULTS Comment: MLO, CT(ASCP) CT screening location: [place] [address] [place] [address] Pathologist SEE NOTE [facility] HISTORICAL RESULTS Comment: Kleber Feliz M.D., Board Certified in Anatomic Pathology and Cytopathology. (electronic signature) Test performed at [facility] [place] [address] [place] [address] Director: YESSY MOTA MD Infection: SEE NOTE [facility] HISTORICAL RESULTS Comment: Shift in vaginal garcia suggestive of bacterial vaginosis. 04/14/2016 4:14 PM BUSINESS AND MARKETING TEACHER Leslie Johnson MD LAB PATHOLOGY ORDER [place] Final Result [facility] HISTORICAL RESULTS from Last 3 Months or Most Recently Relevant to Health Maintenance Insurance [facility] CHOICE PLUS [facility] Care Teams Concrete Engineering Technician Relationship Specialty Start Date End Date Rudy Hinton MD PCP - General 07/21/16
[2024-08-31] MEDS: LACTATED RINGERS 1,000 ML 125 ML IV CONT (13:30)
[2024-08-31 13:36] LABS: Basophils Absolute Auto 0.1 K/mm3 (0.0-0.1); Basophils Percent Auto 0.4 % (0.2-1.2); Eosinophils Absolute Auto 0.1 K/mm3 (0-0.3); Eosinophils Percent Auto 0.3 % (0-4.4); Hematocrit 31.3 % (37.0-47.0); Hemoglobin 10.3 g/dL (12.0-15.0); Immature Granulocyte Absolute 0.07 K/mm3 (0.00-0.031); Immature Granulocyte Percent A 0.4 % (0-0.5); Lymphocytes Absolute Auto 2.71 K/mm3 (0.9-3.2); Lymphocytes Percent Auto 15.6 % (18.3-44.2); Mean Corpuscular HGB Conc 32.9 g/dl (32-36); Mean Corpuscular Volume 94.3 fl (80-100); Mean Platelet Volume 11.6 fl (7.4-10.4); Monocytes Absolute Auto 1.2 K/mm3 (0.1-0.6); Neutrophils Absolute Auto 13.3 K/mm3 (1.3-6.7); Neutrophils Percent Auto 76.3 % (45.5-73.1); Platelet Count Result 235 k/mm3 (150-375); Red Blood Count 3.32 M/mm3 (4.2-5.4); Red Cell Distribution Width 12.9 % (11.5-14.5); White Blood Count 17.4 K/mm3 (4.5-10.0)
--- NOTE | 2024-08-31 14:04 | LDADM ---
This patient, Marco Antonio Felix, was admitted to Labor/Delivery/Recovery 107 on 08/31/24 at 12:44. Plans for labor, pain management and were discussed with patient. Patient/family oriented to hospital policies and general routines including ID bracelet, bed and alarms, visiting hours, pain management, procedures, bathroom and other care routines, personal items, smoking policy, room service/diet and guest tray routines, security routines, and visiting hours. Patient/Family are encouraged to report perceived risks to care and to ask questions if they do not understand what they are told or what they should do. See OBIX for further documentation.
--- NOTE | 2024-08-31 14:13 | WPDOBADMIT ---
Obstetrics - Admit Note Admission Note: record reviewed. No pertinent additions to the history and/or any subsequent changes in the physical findings that are not consistent with the expected course of the were found. Additions to the history and/or subsequent changes in the physical findings follow. Here in active labor. Cervix now 6-7 with SROM. Has epidural but not comfortable. FHTs reactive with random decelerations.
[2024-08-31 14:16] LABS: Syphilis IgG/IgM Antibody Negative (Negative)
[2024-08-31 14:29] LABS: HIV 1/2 Ab P24 Ag Result Negative (Negative)
[2024-08-31] MEDS: OXYTOCIN 30 UNITS/NS 500 ML 30 UNITS/500 ML BAG 999 UNITS IV CONT (14:35)
--- NOTE | 2024-08-31 14:42 | PM.OBPRVD ---
OB - Vaginal Delivery Note Procedure Delivery date: 08/31/24 Induction method: None Delivery monitor: External FHT and External Uterine Route of delivery: Laceration Description: None Specimen: No Quantitative Blood Loss (ml): 50 Anesthesia type: Epidural Disposition: Floor Complications: No immediate complications [place] Baby Date of : 08/31/24 Gestational Age by Date: 39 (39 4/7) gender: Female presentation: vertex position: Right Occiput Anterior Placenta delivery description: Spontaneous Cord Vessel Description: 3 Vessels and Delayed Cord Clamping score one minute: 9 score five minutes: 9
--- NOTE | 2024-08-31 14:44 | PM.OBDSVD ---
DS: Admitting Diagnosis Discharge Date 09/01/2024 <Christian Hernadez MD - Last Filed: 09/01/24 06:40> Admitting Diagnosis Active labor at 39 4/7 <Karli Zuniga MD - Last Filed: 09/01/24 10:40> DS: Discharge Diagnosis Discharge Diagnosis (1) (normal spontaneous vaginal delivery): Code(s): O80 - Encounter for full-term uncomplicated delivery <Karli Zuniga MD - Last Filed: 09/01/24 10:40> Status: Acute <Karli Zuniga MD - Last Filed: 09/01/24 10:40> OB - DS: Summary OB Procedures : NST and Ultrasound <Karli Zuniga MD - Last Filed: 09/01/24 10:40> OB Procedures Intrapartum: Spontaneous Vag Delivery <Karli Zuniga MD - Last Filed: 09/01/24 10:40> OB Procedures: : None <Karli Zuniga MD - Last Filed: 09/01/24 10:40> Peripartum Data Delivery Method: Natural Vaginal <Karli Zuniga MD - Last Filed: 09/01/24 10:40> Laceration Description: None <Karli Zuniga MD - Last Filed: 09/01/24 10:40> complications: none <Karli Zuniga MD - Last Filed: 09/01/24 10:40> Status at Discharge Functional status at discharge: independent ambulation <Karli Zuniga MD - Last Filed: 09/01/24 10:40> Overall status at discharge: patient is progressing back to baseline <Karli Zuniga MD - Last Filed: 09/01/24 10:40> Time Spent with Patient Time attestation: Total time spent providing and/or coordinating discharge services: <Karli Zuniga MD - Last Filed: 09/01/24 10:40> DS: Data Data Completed and Pending Labs on day of discharge: Labs from last 24 hours 08/31/24 13:31 WBC 17.4 H RBC 3.32 L Hgb 10.3 L Hct 31.3 L MCV 94.3 MCH 31.0 MCHC 32.9 RDW 12.9 Plt Count 235 MPV 11.6 H Immature Gran % (Auto) 0.4 Neut % (Auto) 76.3 H Lymph % (Auto) 15.6 L [place] % (Auto) 7.0 Eos % (Auto) 0.3 Baso % (Auto) 0.4 Lymph # (Auto) 2.71 [place] # (Auto) 1.2 H Eos # (Auto) 0.1 Baso # (Auto) 0.1 Abs Immat Gran (auto) 0.07 H Absolute Neuts (auto) 13.3 H Absolute Nucleated RBC 0.000 Nucleated RBC % 0.0 Syphilis IgG/IgM Ab Negative HIV 1&2 Ab/P24 Ag 4thGn Negative Blood Type A Positive Antibody Screen Negative <Karli Zuniga MD - Last Filed: 09/01/24 10:40> Discharge Plan Discharge Attending physician on discharge: Christian Collins <Karli Zuniga MD - Last Filed: 09/01/24 10:40> Christian Collins <Christian Hernadez MD - Last Filed: 09/01/24 06:40> Discharging Clinician: Christian Collins <Karli Zuniga MD - Last Filed: 09/01/24 10:40> Christian Collins <Christian Hernadez MD - Last Filed: 09/01/24 06:40> Anticipated Discharge Date/Time: 09/02/24 14:46 <Karli Zuniga MD - Last Filed: 09/01/24 10:40> Patient Disposition: Home <Karli Zuniga MD - Last Filed: 09/01/24 10:40> Activity: may shower, may drive after 2 weeks and pelvic rest <Karli Zuniga MD - Last Filed: 09/01/24 10:40> may shower, may drive after 2 weeks and pelvic rest <Christian Hernadez MD - Last Filed: 09/01/24 06:40> Diet: heart healthy <Karli Zuniga MD - Last Filed: 09/01/24 10:40> heart healthy <Christian Hernadez MD - Last Filed: 09/01/24 06:40> Patient Instructions: Antibiotic Form <Karli Zuniga MD - Last Filed: 09/01/24 10:40> Patient Language: Occitan <Karli Zuniga MD - Last Filed: 09/01/24 10:40> Stand Alone Forms: General Discharge Information <Karli Zuniga MD - Last Filed: 09/01/24 10:40> Follow-up/Referrals: Christian Collins MD [Physician] - Call for Appointment <Karli Zuniga MD - Last Filed: 09/01/24 10:40> Discharge Medications: Continued propranolol 20 mg tablet 20 mg PO TID bupropion HCl 150 mg tablet extended release 24 hr 150 mg PO DAILY buspirone 15 mg tablet 15 mg PO DAILY levothyroxine 200 mcg tablet 200 mcg PO DAILY prenat.vits,dionicio,waf-dyzq-bsgef Tablet 1 tablet PO DAILY <Karli Zuniga MD - Last Filed: 09/01/24 10:40> Date of admission: 08/31/24 12:44 <Karli Zuniga MD - Last Filed: 09/01/24 10:40> Primary Care Provider: Mary JaneRudy <Karli Zuniga MD - Last Filed: 09/01/24 10:40> Admitting Provider: Christian Collins <Karli Zuniga MD - Last Filed: 09/01/24 10:40> Attending physician on admission: Christian Collins <Karli Zuniga MD - Last Filed: 09/01/24 10:40> Condition: Stable <Karli Zuniga MD - Last Filed: 09/01/24 10:40>
[2024-08-31] MEDS: OXYTOCIN 30 UNITS/NS 500 ML 30 UNITS/500 ML BAG 125 UNITS IV CONT (14:56)
--- NOTE | 2024-08-31 16:55 | OBPPTRN ---
Patient transferred to post room #288 via wheelchair. Support person present. Oriented to unit, room, information board, rooming in, admission packet and security measures. Patient verbalizes understanding.
[2024-08-31] MEDS: ACETAMINOPHEN 325 MG TABLET 650 MG PO (17:15)
[2024-08-31] MEDS: IBUPROFEN 600 MG TABLET PO (23:48)
[2024-09-01 04:57] VITALS: BP 90/54; PULSE 63; RESP 14; TEMP 36.6; O2SAT 98
[2024-09-01 06:06] LABS: Hematocrit 27.6 % (37.0-47.0); Hemoglobin 9.2 g/dL (12.0-15.0)
--- NOTE | 2024-09-01 06:40 | P.PNOB_ITS ---
OB - PN: Subj Subjective Date/time seen: 09/01/24 06:40 Patient comments: no complaints, pain well controlled and tolerating diet [place] baby status: doing well OB - PN: Obj Data Labs 09/01/24 04:55 Labs: Laboratory Results - last 24 hr 08/31/24 09/01/24 13:31 04:55 WBC 17.4 H RBC 3.32 L Hgb 10.3 L 9.2 L Hct 31.3 L 27.6 L MCV 94.3 MCH 31.0 MCHC 32.9 RDW 12.9 Plt Count 235 MPV 11.6 H Immature Gran % (Auto) 0.4 Neut % (Auto) 76.3 H Lymph % (Auto) 15.6 L [place] % (Auto) 7.0 Eos % (Auto) 0.3 Baso % (Auto) 0.4 Lymph # (Auto) 2.71 [place] # (Auto) 1.2 H Eos # (Auto) 0.1 Baso # (Auto) 0.1 Abs Immat Gran (auto) 0.07 H Absolute Neuts (auto) 13.3 H Absolute Nucleated RBC 0.000 Nucleated RBC % 0.0 Syphilis IgG/IgM Ab Negative HIV 1&2 Ab/P24 Ag 4thGn Negative Blood Type A Positive Antibody Screen Negative OB - PN A/P Assessment and Plan (1) Term : Code(s): Z34.90 - Encounter for supervision of normal , unspecified, unspecified trimester Status: Acute Plan home Time Spent With Patient Time: Total time spent is greater than 50% in coordination of care (as documented) at patient's floor/unit and/or counseling patient: Review of Systems 2 Review of Systems: CONSTITUTIONAL: Denies fever, chills, or sweats. CARDIOVASCULAR: Denies chest pain. RESPIRATORY: Denies dyspnea. GASTROINTESTINAL: Reports N/V. Denies abdominal pain. MUSCULOSKELETAL: Denies pain. All systems reviewed & are unremarkable except as noted in HPI and below Exam 2 Const: General: cooperative, healthy appearing and comfortable Nutritional Appearance: average body habitus Orientation/consciousness: oriented to person, oriented to place and oriented to time HENMT: Head: normal to inspection Resp: Effort & Inspection: normal respiratory effort Cardio: Rate: regular rate Rhythm: regular rhythm Heart sounds: S1 normal heart sound present and S2 normal heart sound present GI: Inspection: normal to inspection : External Female Exam: normal external appearance Speculum Exam - Vagina: normal appearance of the vagina Speculum Exam - Cervix: normal appearance of the cervix Bimanual exam- vagina & uterus: enlarged Bimanual Exam- Adnexa, other: no masses
[2024-09-01] MEDS: LEVOTHYROXINE SODIUM 100 MCG TABLET 200 MCG PO (06:44)
[2024-09-01] MEDS: IBUPROFEN 600 MG TABLET PO (06:44)
[2024-09-01 08:00] VITALS: BP 97/67; PULSE 87; RESP 18; TEMP 36.4; O2SAT 97
[2024-09-01] MEDS: buPROPion HCL XL (24 HR) 150 MG TABCR PO (09:04)
[2024-09-01] MEDS: MULTIVIT/MIN/PREN/FOL AC/IRON TABLET 1 TAB PO (09:04)
[2024-09-01] MEDS: busPIRone HCL 5 MG TABLET 15 MG PO (09:04)
[2024-09-01] MEDS: POLYSACCHARIDE IRON COMPLEX 150 MG CAPSULE PO (09:04)
--- NOTE | 2024-09-01 11:30 | PC.NURSE ---
Reviewed standard discharge information with patient including monitoring for required output, transition of stools, feeding 8-12 times every 24 hours, milk production, and follow up at [facility] and with electric vehicle electrician in the first week of life. Mom has some nipple soreness and lanolin was provided. Parents are encouraged to take the feeding log and continue to track feedings and output for the first week . Offered outpatient resources with [facility] referral (faxed to [place]) and Services at [facility]. She has a breast pump at home. Patient has the Mom/Baby Guide for further education and reference for common concerns, phone numbers, and guidance on when to call the doctor. A feeding plan was added to the infant?s discharge plan. Patient states that she has no further questions or concerns regarding .??
--- NOTE | 2024-09-01 11:32 | PCCCNOTE ---
Care Coordination. Received screening referral for substance use. Per RN, there is history of marijuana use during . No UDS done here for mom or baby. Met with mother and FOB. This is pt.'s 5th child and she reports having all necessary baby care items. Pt. is breast feeding and has several breast pumps at home. She is setup with [facility] and denies needing in resource information or supplies for home. She and FOB hope to go home later today if baby doing good. Pt. lives home with FOB and other children.
[2024-09-01 12:08] VITALS: BP 96/65; PULSE 72; RESP 18; TEMP 36.3; O2SAT 99
[2024-09-03 10:33] VITALS: BP 107/68; PULSE 78; RESP 18; TEMP 36.5; O2SAT 99
== END 2024-09-01 16:43 | disposition home or self-care (01) | DRG 560 ==
LOC: ANHLDR 14:47 → ANHOB2 17:45
PROVIDERS: Admitting Provider Obstetrics & Gynecology Gynecology; PCP Internal Medicine; Visit Provider Obstetrics & Gynecology
DX: O80 Encounter for full-term uncomplicated delivery (principal); Z3A.39 39 weeks gestation of pregnancy; Z37.0 Single live birth
CPT/HCPCS: 36415; 85014; 85018; 85025; 86593; 86703; 86850; 86900; 86901; A9270; G0432; J2590; J2795; J7120

== ENCOUNTER 2025-01-09 05:25 | Day surgery (SDC) | payer OTHER, SELFPAY ==
[2024-12-09 09:31] VITALS: BMI 17.4
--- NOTE | 2024-12-09 09:42 | SUR.PREOP ---
Report to the Outpatient Waiting Room, entrance under the green pavilion located off [facility], at time 6:30a.m. on date 12/18/2024 . Planned Procedure Time: 8:30a.m.? Time changes happen often and if your time is changed the preop area will call you the afternoon before. - You and your visitor will be asked to self-screen and do not enter if you have any COVID symptoms. Please call surgeon if you need to reschedule. - A mask is optional within the hospital at this time. Patients may have clear liquids (water, carbonated beverages, clear teas, apple juice) until 3 hours prior to surgery with a maximum of 20 ounces. - No food from midnight until time of surgery and no smoking, or chewing tobacco (or any form of nicotine). No chewing gum, candy or mints. Take only the following medications with a SIP of water on the morning of surgery: Levothyroxine, Buspirone, Bupropion DO NOT STOP ANY OF YOUR OTHER PRESCRIPTION MEDICATIONS PRIOR TO SURGERY EXCEPT THE FOLLOWING Hold all vitamins and supplements for 3 days per anesthesiologist. Medications to discontinue per physician NONE Date to take last dose N/A Please no make-up, nail czech, hairspray, perfume, deodorant, or body powder the day of surgery.? No jewelry (including any body piercings) or valuables the day of surgery, leave them at home.? Please take a shower or bath the night before, or the morning of, surgery with an antibacterial soap.? Wear comfortable, loose fitting clothing.? Children are encouraged to wear pajamas. - Jewelry must be removed prior to entering the operating room.? Rings and piercings that are not removed may be cut off. - The hospital will not accept responsibility for valuables.? - Please leave all valuables, including medications, at home the day of surgery. If you are going home after surgery, a licensed services delivery driver must drive you home.? - NO public transportation without another adult if you receive anesthesia. - We recommend that an adult stay with you for 24 hours following discharge. - We also recommend that you do not drive, make important decision, drink alcoholic beverages, or take any drugs that were not prescribed by your health care provider for at least 24 hours after your discharge time. For Pediatric surgeries, we recommend two adults accompany the child home. Follow any additional instructions given to you from your surgeon. Telephone instructions given to Marco Antonio Felix and asked if any additional questions and then verbalized understanding. Patient advised to call surgeon office or pre surgery nurse liaison [phone] if any additional questions.
--- NOTE | 2024-12-16 12:50 | PM.IMHP ---
H&P: HPI History of Present Illness Date/Time: 12/16/24 12:50 Chief Complaint: The patient desires permanent irreversible sterilization Narrative: This is a 29-year-old multiparous patient admitted for laparoscopic bilateral salpingectomy secondary to desired permanent sterilization. Had a long history of many babies. She wants permanent irreversible sterilization alternatives including but not exclusive pills/passes/injections/large ex have all been reviewed. She read the ACOG handout entitled sterilization for men and women. She understands this to be irreversible. Failure rate of 06/999 subsequent risk of ectopic bleeding and were reviewed. She had all questions answered and asked to proceed Review of Systems Review of Systems: CONSTITUTIONAL: Denies fever, chills, or sweats. CARDIOVASCULAR: Denies chest pain. RESPIRATORY: Denies dyspnea. GASTROINTESTINAL: Reports N/V. Denies abdominal pain. MUSCULOSKELETAL: Denies pain. All systems reviewed & are unremarkable except as noted in HPI and below PMFSH Past Medical History Medical History (Updated 12/16/24 @ 12:52 by Christian Hernadez MD) Anxiety Bipolar disorder Skin cancer Thyroid cancer Toe fracture Finger fracture Ankle fracture, right Wrist fracture Elbow fracture UTI (urinary tract infection) History of stillbirth At 7.5 weeks, emergency needed but not performed Genital herpes GERD (gastroesophageal reflux disease) Surgical History Surgical History History of removal of skin mole History of thyroidectomy Total, due to thyroid CA Family History Family History Father FH: stomach cancer Drug addiction Alcohol abuse Mother Drug addiction Alcohol abuse Other Adopted Unknown family medical history Social History Social History Smoking packs per day: 0.75 Smoking cigarettes per day: 15.0 Years smoked: 18 Smoking pack-years: 13.50 Smoking status: Current every day smoker Tobacco type: cigarettes Second hand tobacco smoke exposure: Yes Additional smoking assessment comments: Pt has cut down to 0.25 PPD during Alcohol intake: never Substance use: current Substance use type: marijuana Do You Feel Safe in your Home?: Yes Lack of Transportation: No Lack of Food: Never True Current Housing: I Have Housing Concerned About Future Housing: No Difficulty Paying Gas/Electric Bills: No Difficulty Paying for Meds: No Currently Unemployed: No Education: Associate Degree Difficulty w/ Childcare or Family Care: No Living arrangements: alone Gender identity (if verbalized by the patient): Female Sexual Orientation (if Verbalized by the Patient): Straight or Heterosexual Spiritual care concerns: No Meds Home Medications and Allergies Home Medications ?Medication ?Instructions ?Recorded ?Confirmed ?Type bupropion HCl 150 mg 24 hr tablet, 300 mg PO DAILY 01/02/23 12/09/24 History extended release buspirone 15 mg tablet 22.5 mg PO DAILY 08/12/24 12/09/24 History levothyroxine 200 mcg tablet 200 mcg PO DAILY 08/12/24 12/09/24 History Allergies Allergy/AdvReac Type Severity Reaction Status Date / Time Penicillins AdvReac Mild VOMITING Verified 12/09/24 09:28 Exam Const: General: cooperative, healthy appearing and comfortable Nutritional Appearance: average body habitus HENMT: Head: normal to inspection Resp: Effort & Inspection: normal respiratory effort Cardio: Rate: regular rate Rhythm: regular rhythm Heart sounds: S1 normal heart sound present and S2 normal heart sound present GI: Inspection: normal to inspection : External Female Exam: normal external appearance Speculum Exam - Vagina: normal appearance of the vagina Speculum Exam - Cervix: normal appearance of the cervix Bimanual exam- vagina & uterus: non-tender and enlarged Bimanual Exam- Adnexa, other: normal adnexae Assessment and Plan Assessment and plan (1) Sterilization: Code(s): Z30.2 - Encounter for sterilization Status: Acute Plan Will proceed with laparoscopic bilateral salpingectomy
--- OUTSIDE RECORDS SUMMARY | 2024-12-18 01:52 | XMS_ITS | Clinical Summary ---
Author Organization [facility] Address [address] [place] [address] Phone Care Team Providers Care Edi Consultant Name Role Phone Rudy Hinton MD [...] 8:39 AM CDT Height 157.5 cm (5' 2) 09/06/2022 8:39 AM CDT Body Mass Index 21.03 09/06/2022 8:39 AM CDT Plan of Treatment Health Maintenance Due Date Last Done Comments Hepatitis C Virus (HCV) Screening 1994 Pap Smear 2015 SARS-COV-2 Immunization ( season) 2023 02/08/2022, 04/23/2021, 03/15/2021 Cervical Cancer Screening (CCS) 01/21/2024 HPV/Cotest 01/21/2024 Influenza Immunization (#1) 12/22/202402/21, 02/04/2018, 02/03/2018 Respiratory Syncytial Virus (RSV) Immunization (Adult) (1 - 1-dose 75+ series) 2069 Hepatitis B Immunization Completed 995, 1994, 1994 Meningococcal Immunization (ACWY) Aged Out 03/11/2007 No longer eligible based on patient's age to complete this topic Human Papillomavirus (HPV) Immunization Completed 08/02/2007, 02/28/2007, 01/28/2007 DTaP/Tdap/Td Immunization Discontinued 2016, 01/26/2017, 01/28/2007, Additional history exists TdaP Immunization Completed 03/24/2017, , 01/28/2007 Pneumococcal Immunization Combined Aged Out No longer eligible based on patient's age to complete this topic Rotavirus Immunization Aged Out No lo nger eligible based on patient's age to complete this topic Insurance MEDICAID [place] Care Teams Edi Consultant Relationship Specialty Start Date End Date Rudy Hinton MD [address] [place] [address] DR BANEGAS [address] [place] [id number] PCP - General Internal Medicine 04/26/21
--- OUTSIDE RECORDS SUMMARY | 2024-12-18 01:52 | XMS_ITS | Clinical Summary ---
Author Organization [facility] Address [address] [place] [address] Care Team Providers Care Plate Mill Mill Hand Name Role Phone Unavailable Primary Care Provider Unavailabl e Source Comments [facility],non-owned Affiliates and Associated Physician Practices is amultiple site organization consisting of ambulatory clinics and hospital sitesin [place], [place], [place] and [place]. This disclosure is being madepursuant to the Care Everywhere program and may not contain all information available regarding this patient. 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 Gender Identity Not on file Sexual Orientation [...] 12:16 PM CDT Height 157.5 cm (5' 2) 07/20/2009 12:16 PM CDT Body Mass Index 16.83 07/20/2009 12:16 PM CDT Plan of Treatment Health Maintenance Due Date Last Done Comments HIV SCREENING 2009 HEPATITIS C SCREENING 01/16/2012 DTAP/TDAP/TD VACCINES (1 - Tdap) 2013 HEPATITIS B VACCINE (1 of 3 - 19+ 3-dose series) 2013 PAP SMEAR 2015 HPV VACCINE (1 - 3-dose SCDM series) 2021 COVID-19 VACCINE (1 - 2023-2 5 season) 2023 DEPRESSION SCREENING 04/23/2024 INFLUENZA VACCINE (#1) 2024 ZOSTER VACCINE (1 of 2) 01/21/2044 [...] patient's age to complete this topic Insurance [facility]
--- OUTSIDE RECORDS SUMMARY | 2024-12-18 01:52 | XMS_ITS | Clinical Summary ---
Author Organization [facility] Address [address] [place] [address] Care Team Providers Care Bread Stacker Name Role Phone Rudy Hinton MD Primary Care Provider Allergies Active Allergy Reactions Criticality Noted Date Comments Penicillins Vomiting High 05/06/2018 Medications buPROPion XL (WELLBUTRIN XL) 150 mg 24 hr tablet Take 1 tablet (150 mg total) by mouth daily 08/06/2022 Active albuterol HFA (PROVENTIL HFA,VENTOLIN HFA,PROAIR HFA) 90 mcg/actuation inhaler Inhale 2 puffs every 6 (six) hours as needed for wheezing 3 each 4 11/05/2023 Active busPIRone (BUSPAR) 15 mg tablet Take 1 tablet (15 mg total) by mouth 2 (two) times a day 08/13/2024 Active famotidine (PEPCID) 20 mg tablet Take 1 tablet (20 mg total) by mouth 2 (two) times a day Active tiZANidine (ZANAFLEX) 2 mg tablet Take 1 tablet (2 mg total) by mouth every 6 (six) hours as needed (Headaches) For migraine pain 30 tablet 3 09/09/2024 Active levothyroxine (SYNTHROID) 200 mcg tablet Take 1 tablet (200 mcg total) by mouth daily 09/13/2024 Active Active Problems Problem Noted Date Diagnosed Date 35 weeks gestation of 08/25/2024 Assessment & Plan (08/25/2024 9:42 AM CDT): Closely followed by OBGYN locally Due date this month TFT 4-6 weeks after she gives History of papillary adenocarcinoma of thyroid 0 12/12/2019 Assessment & Plan (10/20/2024 5:15 PM CDT): RAF (generalized anxiety disorder) 10/03/2018 Assessment & Plan (10/20/2024 5:15 PM CDT): Assessment & Plan (10/03/2018 1:57 PM CDT): [...] interim. Post-surgical hypothyroidism 08/26/2018 Assessment & Plan (10/20/2024 5:15 PM CDT): Orders: TSH; Future Assessment & Plan (08/25/2024 9:40 AM CDT): [...] level Assessment & Plan (03/31/2020 9:49 AM PUMP SERVICE SUPERVISOR): Advised to increase levothyroxine dose by [...] With current dosing of levothyroxine F/U with peoplesoft functional analyst as scheduled Assessment & Plan (08/26/2018 2:32 PM CDT): Will check TSH and adjust dose accordingly Continue levothyroxine current dose Papillary thyroid carcinoma 08/26/2018 Assessment & Plan (08/25/2024 9:40 AM CDT): No evidence of recurrence per US Will obtain labs TFT monitored while per MELL[facility] locally Assessment & Plan (08/21/2023 12:34 PM [...] levothyroxine Assessment & Plan (03/31/2020 9:50 AM PUMP SERVICE SUPERVISOR): No evidence of recurrence per last [...] With current dosing of levothyroxine F/U with peoplesoft functional analyst as scheduled Assessment & Plan (08/26/2018 2:32 [...] month Assessment & Plan (06/04/2018 3:16 PM PUMP SERVICE SUPERVISOR): Cnt. With current dosing of Remeron considering increase in appetite and 4 lb weight gain. I did strongly encourage Pt to trying plan on her meals out a bit better providing her with a list of higher protein rich foods. We did discuss touching base with a environmental engineering professor possibly at a gym more local supplements store along with continuing current dosing of Remeron to assist with weight gain. I did advised to call us monthly with her home weight gains and follow-up in 6 months for re-evaluation weight check Assessment & Plan (05/06/2018 2:18 PM PUMP SERVICE SUPERVISOR): Trial Remeron starting off at 7.5 mg daily, stretching lower due to caution of starting on medications. She is also going to take at bedtime did caution sedation, increasing protein intake and supplemental drinks. We will touch base here in a month to recheck weight. Call with any questions or concerns regarding meds in the interim Tobacco abuse 08/31/2017 Assessment & Plan (10/20/2024 5:15 PM CDT): Assessment & Plan (06/28/2022 12:37 PM PUMP SERVICE SUPERVISOR): She was advised to quit smoking; the risks of continued tobacco use discussed. 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 Estimated Date of Delivery Comme nts Yes 09/04/2024 Resolved Problems Problem Noted Date Diagnosed Date Resolved Date Hair loss 03/31/2020 01/06/2021 Assessment & Plan (03/31/2020 9:51 AM PUMP SERVICE SUPERVISOR): There is a high chance this [...] 05/06/2018 Assessment & Plan (05/06/2018 2:16 PM PUMP SERVICE SUPERVISOR): Please refer to care plan under neck strain Neck strain, sequela 05/06/2018 019 Assessment & Plan (05/06/2018 2:16 PM PUMP SERVICE SUPERVISOR): Recommended continuing current dosing of ibuprofen, [...] did encourage her to bring in the [facility] paperwork for me to fill out as well Dermatitis of right foot 12/27/2016 Assessment & Plan (12/27/2016 8:50 AM CDT): Persistent. Try Lotrisone topically. Referral to Dermatology arranged. 28 weeks gestation of 12/27/2016 08/31/2017 Assessment & Plan (12/27/2016 8:50 AM CDT): Routine follow-up with technology adoption manager as scheduled. Medical examinations/reports status 07/19/2015 08/31/2017 Overview (07/28/2016): Routine medical exam Malignant neoplasm of thyroid gland 04/01/2013 10/03/2018 Overview (07/26/2016): Thyroid cancer Assessment & Plan (05/06/2018 2:17 PM PUMP SERVICE SUPERVISOR): Last TSH level was near detectable 0.03. Pt does likely need adjustment decreasing dose of her levothyroxine. Repeat TSH level with free T4 panic adjustments if indicated, faxing over 2 specialist office for their review as well considering hx of malignancy/thyroid replacement Bipolar 1 disorder, mixed 08/05/2011 Encounters Date Type Department Care Team Description 10/20/2024 10:30 AM CDT Office Visit [facility] Primary Care at [address] [place] [address] Rudy Hinton MD Annual physical exam (Primary Dx); Underweight with body mass index (BMI) less than 18.5; History of papillary adenocarcinoma of thyroid; RAF (generalized anxiety disorder); Post-surgical hypothyroidism; Tobacco abuse from Last 3 Months Immunizations Immunization Administration Dates Next Due DTP / HiB 1994,1994,1994 DTaP, Unspecified 01/19/1999,07/18/1995 HPV, Unspecified 08/02/2007,02/28/2007, 7 Hep B, Unspecified 1994,1994, 994 HiB 04/18/1995 Influenza LAIV (Nasal) 12/22/2021(Deferr ed: Patient Refused),01/21/2021(Deferred: Patient Refused) Influenza, Quadrivalent, Spl it, Preservative Free, Intramuscular 03/04/2019,02/04/2018 Influenza, Unspecified 10/20/2024,2022,06/28/2022(Defer red: Patient Refused),01/06/2021(Deferred: Patient Refused),01/22/2020(Deferred: Patient Refused),01/22/2020(Deferred: Patient Refused),01/30/2019(Deferred: Patient Refused),12/06/2018(Deferred: Not available from nuclear physics professor),02/04/2018 MMR 01/19/1999,04/18/1995 Meningococcal ACWY, Unspecified 03/11/2007 OPV [...] HISTORY 2013 : spontaneous OTHER SURGICAL HISTORY 2009 Thyroid cancer: thyroidectomy OTHER SURGICAL HISTORY Anxiety: [...] points, staff should administer the PHQ-9) 0 10/20/2024 Personal Safety Answer Date Recorded Have you ever been in or are you currently in a harmful physical or emotional relationship or is someone making you feel afraid or unsafe? Denies 05/31/2023 Estimated Date of Delivery Comme nts Yes 09/04/2024 Sex and Gender Information Value Date Recorded Sex Assigned at Not on file Legal Sex Female 10:00 AM PUMP SERVICE SUPERVISOR Gender Identity Female 08/29/2022 2:01 PM CDT Sexual Orientation Not on file Obstetrics History Para Term AB IAB SAB Ectopic Multiple Livin g Live Births 3 Date Outcome GA Total Labor Labor/2nd/3rd Weight Sex Type Anes PTL Amrita A1 A5 Name Clin Current Last Filed Vital Signs Vital Sign Reading Time Taken Comments Blood Pressure 90/60 10/20/2024 10:38 AM CDT Pulse 76 10/20/2024 10:38 AM CDT Temperature 37.1 C (98.8 F) 10/20/2024 10:38 AM CDT Respiratory Rate 16 10/20/2024 10:38 AM CDT Oxygen Saturation 99% 10/20/2024 10:38 AM CDT Inhaled Oxygen Concentration - - Weight 44.5 kg (98 lb) 10/20/2024 10:38 AM CDT Height 157.5 cm (5' 2) 10/20/2024 10:38 AM CDT Body Mass Index 17.92 10/20/2024 10:38 AM CDT Plan of Treatment Health Maintenance Due Date Last Done Comments Hepatitis C Screening 1994 Pneumococcal vaccine <65 (1 of 2 - PCV) 2013 Cervical Cancer Screening 04/14/2017 04/14/2016, Influenza Vaccine (#1) 2024 , 01/12/2023, 03/04/2019, Additional history exists Depression Screening 10/20/2025 10/20/2024, 01/15/2023, 06/28/2022, Additional history exists Regular Well Visit/Exam 18-64 10/20/2025, 10/18/2023, 01/15/2023, Additional history exists DTaP/Tdap/Td Vaccine (9 - Td or Tdap) 03/24/2027 03/24/2017, 01/26/2017, 01/28/2007, Additional history exists Hepatitis B Screening Completed 1994 , 1994, 1994 HPV Vaccines Completed 08/02/2007, 11/2006, 01/28/2007 Varicella Vaccines Completed 10/13/2008, 06/14/1998 Procedures Procedure Name Priority Date/Time Associated Diagnosis Comments THINPREP TIS PAP REFLEX HPV MRNA E6/E7, CHLAMYDIA/N.GONORRH OEAE Routine 04/14/2016 4:14 PM PUMP SERVICE SUPERVISOR from Last 3 Months or Most Recently Relevant to Health Maintenance Results * (ABNORMAL) THINPREP TIS PAP REFLEX HPV mRNA E6/E7, CHLAMYDIA/N.GONORRHOEAE (04/14/2016 4:14 PM PUMP SERVICE SUPERVISOR) SOURCE: SEE NOTE [facility] HISTORICAL RESULTS [...] clinical correlation and follow-up as clinically appropriate Refrigeration Lead SEE NOTE [facility] HISTORICAL RESULTS Comment: KMY, CT(ASCP) CT screening location: [place] [address] [place] [address] Review cattle feeder SEE NOTE [facility] HISTORICAL RESULTS Comment: MLO, CT(ASCP) CT screening location: [place] [address] [address] [place] [address] Pathologist SEE NOTE [facility] HISTORICAL RESULTS Comment: Kleber Feliz M.D., Board Certified in Anatomic Pathology and Cytopathology. (electronic signature) Test performed at [place] [address] [place] [address] Director: YESSY MOTA MD Infection: SEE NOTE [facility] HISTORICAL RESULTS Comment: Shift in vaginal garcia suggestive of bacterial vaginosis. 04/14/2016 4:14 PM PUMP SERVICE SUPERVISOR Leslie Johnson MD LAB PATHOLOGY ORDER DOMING[place] Final Result [facility] HISTORICAL RESULTS from Last 3 Months or Most Recently Relevant to Health Maintenance Insurance [facility] UHC CHOICE [facility] HMO/PPO Address: [phone] [place] [address] [facility] Care Teams Bread Stacker Relationship Specialty Start Date End Date Rudy Hinton MD PCP - General 07/21/16
--- NOTE | 2024-12-18 07:36 | WPDHPUPDATE1 ---
History and Physical Update Update Date/Time: 12/18/24 07:36 History and Physical has been reviewed, including an updated exam of the patient. There are NO changes in the patient's condition. Risks, benefits, and alternatives have been discussed and questions answered. Patient agrees to proceed with procedure.
--- NOTE | 2025-01-07 07:25 | PM.IMHP ---
H&P: HPI History of Present Illness Date/Time: 01/07/25 07:25 Chief Complaint: Sterilization Narrative: This is a a 29-year-old multiparous patient admitted for laparoscopic salpingectomy secondary to desired sterilization she understands this to be irreversible. Alternatives were reviewed including but not exclusive of pills, patches, injections, the IUD, implants. She understands this to be irreversible with a failure rate of 06/999 and subsequent risk of ectopic bleeding and . Risks and benefits of the procedure reviewed in full. She had all questions answered. She asked to proceed. Review of Systems Review of Systems: CONSTITUTIONAL: Denies fever, chills, or sweats. CARDIOVASCULAR: Denies chest pain. RESPIRATORY: Denies dyspnea. GASTROINTESTINAL: Reports N/V. Denies abdominal pain. MUSCULOSKELETAL: Denies pain. All systems reviewed & are unremarkable except as noted in HPI and below PMFSH Past Medical History Medical History Anxiety Bipolar disorder Skin cancer Thyroid cancer Toe fracture Finger fracture Ankle fracture, right Wrist fracture Elbow fracture UTI (urinary tract infection) History of stillbirth At 7.5 weeks, emergency needed but not performed Genital herpes GERD (gastroesophageal reflux disease) Surgical History Surgical History History of removal of skin mole History of thyroidectomy Total, due to thyroid CA Family History Family History Father FH: stomach cancer Drug addiction Alcohol abuse Mother Drug addiction Alcohol abuse Other Adopted Unknown family medical history Social History Social History Smoking packs per day: 0.75 Smoking cigarettes per day: 15.0 Years smoked: 18 Smoking pack-years: 13.50 Smoking status: Current every day smoker Tobacco type: cigarettes Second hand tobacco smoke exposure: Yes Additional smoking assessment comments: Pt has cut down to 0.25 PPD during Alcohol intake: never Substance use: current Substance use type: marijuana Do You Feel Safe in your Home?: Yes Lack of Transportation: No Lack of Food: Never True Current Housing: I Have Housing Concerned About Future Housing: No Difficulty Paying Gas/Electric Bills: No Difficulty Paying for Meds: No Currently Unemployed: No Education: Associate Degree Difficulty w/ Childcare or Family Care: No Living arrangements: alone Gender identity (if verbalized by the patient): Female Sexual Orientation (if Verbalized by the Patient): Straight or Heterosexual Spiritual care concerns: No Meds Home Medications and Allergies Home Medications ?Medication ?Instructions ?Recorded ?Confirmed ?Type bupropion HCl 150 mg 24 hr tablet, 300 mg PO DAILY 01/02/23 12/09/24 History extended release buspirone 15 mg tablet 22.5 mg PO DAILY 08/12/24 12/09/24 History levothyroxine 200 mcg tablet 200 mcg PO DAILY 08/12/24 12/09/24 History Allergies Allergy/AdvReac Type Severity Reaction Status Date / Time Penicillins AdvReac Mild VOMITING Verified 12/09/24 09:28 Exam Const: General: cooperative, healthy appearing and comfortable Nutritional Appearance: average body habitus Orientation/consciousness: oriented to person, oriented to place and oriented to time HENMT: Head: normal to inspection Resp: Effort & Inspection: normal respiratory effort Cardio: Rate: regular rate Rhythm: regular rhythm Heart sounds: S1 normal heart sound present and S2 normal heart sound present GI: Inspection: normal to inspection : External Female Exam: normal external appearance Speculum Exam - Vagina: normal appearance of the vagina Speculum Exam - Cervix: normal appearance of the cervix Bimanual exam- vagina & uterus: enlarged Bimanual Exam- Adnexa, other: normal adnexae Assessment and Plan Assessment and plan (1) Sterilization: Code(s): Z30.2 - Encounter for sterilization Status: Acute Plan Proceed with laparoscopic bilateral salpingectomy
--- NOTE | 2025-01-07 08:05 | PC.NURSE ---
Report to the Outpatient Waiting Room, entrance under the green pavilion located off [facility], at time _0630__ on date __01/09/25_. Planned Procedure Time: _0830.? Time changes happen often and if your time is changed the preop area will call you the afternoon before. - You and your visitor will be asked to self-screen and do not enter if you have any COVID symptoms. Please call surgeon if you need to reschedule. - A mask is optional within the hospital at this time. Patients may have clear liquids (water, carbonated beverages, clear teas, apple juice) until 3 hours prior to surgery with a maximum of 20 ounces. - No food from midnight until time of surgery and no smoking, or chewing tobacco (or any form of nicotine). No chewing gum, candy or mints. - Infants may have breast milk until 4 hours before surgery, infant formula 6 hours prior to surgery. - Children will be allowed to drink immediately following surgery.? If applicable, please bring a bottle or sippy cup to assist with drinking. Juice, water, soda, and popsicles are readily available.? For infants on formula, please bring formula the day of surgery.? Pacifiers are allowed. Take only the following medications with a SIP of water on the morning of surgery: ___levothyroxine, buspiron, bupropion DO NOT STOP ANY OF YOUR OTHER PRESCRIPTION MEDICATIONS PRIOR TO SURGERY EXCEPT THE FOLLOWING Hold all vitamins and supplements for 3 days per anesthesiologist. Medications to discontinue per physician Date to take last dose Please no make-up, nail new zealander, hairspray, perfume, deodorant, or body powder the day of surgery.? No jewelry (including any body piercings) or valuables the day of surgery, leave them at home.? Please take a shower or bath the night before, or the morning of, surgery with an antibacterial soap.? Wear comfortable, loose fitting clothing.? Children are encouraged to wear pajamas. - Jewelry must be removed prior to entering the operating room.? Rings and piercings that are not removed may be cut off. - The hospital will not accept responsibility for valuables.? - Please leave all valuables, including medications, at home the day of surgery. If you are going home after surgery, a licensed belly dump driver must drive you home.? - NO public transportation without another adult if you receive anesthesia. - We recommend that an adult stay with you for 24 hours following discharge. - We also recommend that you do not drive, make important decision, drink alcoholic beverages, or take any drugs that were not prescribed by your health care provider for at least 24 hours after your discharge time. For Pediatric surgeries, we recommend two adults accompany the child home. Follow any additional instructions given to you from your surgeon. Telephone instructions given to patient_and asked if any additional questions and then verbalized understanding. Patient advised to call surgeon office or pre surgery nurse liaison [phone] if any additional questions.
[2025-01-09] VITALS (10 sets, daily range): BP systolic 89–112; BP diastolic 54–83; PULSE 66–103; RESP 14–16; TEMP 36.3–36.7; O2SAT 98–100
--- OUTSIDE RECORDS SUMMARY | 2025-01-09 05:28 | XMS_ITS | Clinical Summary ---
Author Organization [facility] Address [address] [place] [address] Care Team Providers Care Measurement Advisor Name Role Phone Unavailable Primary Care Provider Unavailabl e Source Comments [facility],non-owned Affiliates and Associated Physician Practices is amultiple site organization consisting of ambulatory clinics and hospital sitesin [place], [place], [place] and [place]. This disclosure is being madepursuant to the Care Everywhere program and may not contain all information available regarding this patient. Last updated 18.[facility] Allergies No known active allergies Medications * [...] on file Legal Sex Female 8:41 AM ALUMINUM CONTAINER TESTER Gender Identity Not on file Sexual Orientation [...] VACCINE (1 - 3-dose SCDM series) 2021 DEPRESSION SCREENING 04/23/2024 COVID-19 VACCINE (1 - 2023-2 5 season) 2024 INFLUENZA VACCINE (#1) 2024 ZOSTER VACCINE (1 [...] patient's age to complete this topic Insurance [facility]
--- OUTSIDE RECORDS SUMMARY | 2025-01-09 05:28 | XMS_ITS | Clinical Summary ---
Author Organization [facility] Address [address] [place] [address] Care Team Providers Care Farm Advisor Name Role Phone Rudy Hitnon MD Primary Care Provider Allergies Active Allergy Reactions Criticality Noted Date Comments Penicillins Vomiting,Nausea & Vomiting High 05/06/19 19 Medications albuterol HFA (PROVENTIL HFA,VENTOLIN HFA,PROAIR HFA) 90 mcg/actuation inhaler Inhale 2 puffs every 6 (six) hours as needed for wheezing 3 each 4 11/05/19 24 Active busPIRone (BUSPAR) 15 mg tablet Take 1 tablet (15 mg total) by mouth 2 (two) times a day 08/14/19 25 Active levothyroxine (SYNTHROID) 200 mcg tablet Take 1 tablet (200 mcg total) by mouth daily 09/14/19 25 Active fluticasone propion-salmet Aurea (ADVAIR DISKUS) 100-50 mcg/dose diskus inhaler Inhale 1 puff 2 (two) times a day Rinse mouth with water after use. Do not swallow. For asthma 1 each 11 12/31/19 25 Active hydrOXYzine (VISTARIL) 25 mg capsule Take 1 capsule (25 mg total) by mouth 3 (three) times a day as needed 10/30/19 25 Active Wellbutrin XL 300 mg 24 hr tablet Take 1 tablet (300 mg total) by mouth every morning 11/22/19 25 Active LORazepam (ATIVAN) 0.5 mg tablet Take 1 tablet (0.5 mg total) by mouth 2 (two) times a day as needed for anxiety 10/30/19 25 Active mirtazapine (REMERON) 15 mg tablet Take 1 tablet (15 mg total) by mouth nightly To gain weight 30 tablet 11 01/02/20 25 025 Active buPROPion XL (WELLBUTRIN XL) 150 mg 24 hr tablet Take 1 tablet (150 mg total) by mouth daily 08/07/19 23 025 Discontinued famotidine (PEPCID) 20 mg tablet Take 1 tablet (20 mg total) by mouth 2 (two) times a day 025 Discontinued tiZANidine (ZANAFLEX) 2 mg tablet Take 1 tablet (2 mg total) by mouth every 6 (six) hours as needed (Headaches) For migraine pain 30 tablet 3 09/10/19 25 025 Discontinued cefuroxime (CEFTIN) 250 mg tablet Take 1 tablet (250 mg total) by mouth 2 (two) times a day for 7 days For sinus infection 14 tablet 12/25/19 25 025 Discontinued methylPREDNISo lone (MEDROL DOSEPACK) 4 mg Dosepack Take as directed on package. 21 tablet 12/31/19 25 025 Discontinued Active Problems Problem Noted Date Diagnosed Date Severe protein-calorie malnutrition 01/01/2025 Assessment & Plan (01/01/2025 12:16 PM CDT): History of papillary adenocarcinoma of thyroid 0 12/12/2019 Assessment & Plan (01/01/2025 12:16 PM CDT): Assessment & Plan (10/20/2024 5:15 PM CDT): RAF (generalized anxiety disorder) 10/03/2018 Assessment & Plan (01/01/2025 12:16 PM CDT): Assessment & Plan (10/20/2024 5:15 PM CDT): [...] interim. Post-surgical hypothyroidism 08/26/2018 Assessment & Plan (01/01/2025 12:16 PM CDT): Assessment & Plan (10/20/2024 5:15 PM CDT): Orders: TSH; Future Assessment & Plan (08/25/2024 9:40 AM CDT): On levothyroxine 200 mcg Will obtain labs TFT monitored while per O[facility]N locally Assessment & Plan (08/21/2023 12:34 PM [...] level Assessment & Plan (03/31/2020 9:49 AM CUPOLA OPERATOR): Advised to increase levothyroxine dose by one [...] With current dosing of levothyroxine F/U with it disaster recovery manager as scheduled Assessment & Plan (08/26/2018 2:32 [...] levothyroxine Assessment & Plan (03/31/2020 9:50 AM CUPOLA OPERATOR): No evidence of recurrence per last year [...] With current dosing of levothyroxine F/U with it disaster recovery manager as scheduled Assessment & Plan (08/26/2018 2:32 [...] month Assessment & Plan (06/04/2018 3:16 PM CUPOLA OPERATOR): Cnt. With current dosing of Remeron considering increase in appetite and 4 lb weight gain. I did strongly encourage Pt to trying plan on her meals out a bit better providing her with a list of higher protein rich foods. We did discuss touching base with a advanced practice nurse possibly at a gym more local supplements store along with continuing current dosing of Remeron to assist with weight gain. I did advised to call us monthly with her home weight gains and follow-up in 6 months for re-evaluation weight check Assessment & Plan (05/06/2018 2:18 PM CUPOLA OPERATOR): Trial Remeron starting off at 7.5 mg daily, stretching lower due to caution of starting on medications. She is also going to take at bedtime did caution sedation, increasing protein intake and supplemental drinks. We will touch base here in a month to recheck weight. Call with any questions or concerns regarding meds in the interim Tobacco abuse 08/31/2017 Assessment & Plan (01/01/2025 12:16 PM CDT): Assessment & Plan (10/20/2024 5:15 PM CDT): Assessment & Plan (06/28/2022 12:37 PM CUPOLA OPERATOR): She was advised to quit smoking; the risks of continued tobacco use discussed. 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 Estimated Date of Delivery Comme nts Yes 09/04/2024 Resolved Problems Problem Noted Date Diagnosed Date Resolved Date 35 weeks gestation of 08/25/2024 01/01/2025 Assessment & Plan (08/25/2024 9:42 AM CDT): Closely followed by OBGYN locally Due date this month TFT 4-6 weeks after she gives Hair loss 03/31/2020 01/06/2021 Assessment & Plan (03/31/2020 9:51 AM CUPOLA OPERATOR): There is a high chance this is [...] 05/06/2018 Assessment & Plan (05/06/2018 2:16 PM CUPOLA OPERATOR): Please refer to care plan under neck strain Neck strain, sequela 05/06/2018 019 Assessment & Plan (05/06/2018 2:16 PM CUPOLA OPERATOR): Recommended continuing current dosing of ibuprofen, no [...] did encourage her to bring in the [place] paperwork for me to fill out as well Dermatitis of right foot 12/27/2016 Assessment & Plan (12/27/2016 8:50 AM CDT): Persistent. Try Lotrisone topically. Referral to Dermatology arranged. 28 weeks gestation of 12/27/2016 08/31/2017 Assessment & Plan (12/27/2016 8:50 AM CDT): Routine follow-up with emergency medicine physician assistant as scheduled. Medical examinations/reports status 07/19/2015 08/31/2017 Overview (07/28/2016): Routine medical exam Malignant neoplasm of thyroid gland 04/01/2013 10/03/2018 Overview (07/26/2016): Thyroid cancer Assessment & Plan (05/06/2018 2:17 PM CUPOLA OPERATOR): Last TSH level was near detectable 0.03. Pt does likely need adjustment decreasing dose of her levothyroxine. Repeat TSH level with free T4 panic adjustments if indicated, faxing over 2 specialist office for their review as well considering hx of malignancy/thyroid replacement Bipolar 1 disorder, mixed 08/05/2011 Encounters Date Type Department Care Team Description 01/01/2025 11:30 AM CDT Office Visit [facility] Primary Care at [address] [place] [address] Rudy Hinton MD Severe protein-calorie malnutrition (Primary Dx); RAF (generalized anxiety disorder); History of papillary adenocarcinoma of thyroid; Post-surgical hypothyroidism; Tobacco abuse 12/30/2024 Orders Only [facility] Primary Care at [address] [place] [address] Rudy Hinton MD 12/30/2024 Orders Only [facility] Primary Care at [address] [place] [address] Rudy Hinton MD 12/24/2024 Orders Only [facility] Primary Care at [address] [place] [address] Rudy Hinton MD 12/24/2024 Telephone [facility] Metabolic Weight Management [address] [place] [address] Medical Office Building [address], [address] [place] [address] Rosanna Dunn CPhT 10/20/2024 10:30 AM CDT Office Visit [facility] Primary Care at [address] [place] [address] Rudy Hinton MD Annual physical exam (Primary [...] Patient Refused),01/30/2019(Deferred: Patient Refused),12/06/2018(Deferred: Not available from necktie turner),02/04/2018 MMR 01/19/1999,04/18/1995 Meningococcal ACWY, Unspecified 03/11/2007 OPV [...] Packs Alcohol Use Standard Drinks/Week Comments Yes 2 (1 standard drink = 0.6 oz pur e alcohol) PHQ-2 Answer Date Recorded PHQ-2 Total Score (If total score is 3 or more points, staff should administer the PHQ-9) 0 10/20/2024 AUDIT-C Answer Date Recorded Q1: How often do you have a drink containing alc ohol? 2-3 times a week 01/01/2025 Q2: How many drinks containi ng alcohol do you have on a typical day when you are drinking? 1 or 2 01/01/2025 Q3: How often do you have si x or more drinks on one occasion? Never 01/01/2025 Personal Safety Answer Date Recorded Have you ever been in or are you currently in a harmful physical or emotional relationship or is someone making you feel afraid or unsafe? Denies 05/31/2023 Estimated Date of Delivery Comme nts Yes 09/04/2024 Sex and Gender Information Value Date Recorded Sex Assigned at Not on file Legal Sex Female 10:00 AM CUPOLA OPERATOR Gender Identity Female 08/29/2022 2:01 PM CDT Sexual Orientation Not on file Obstetrics History Para Term AB IAB SAB Ectopic Multiple Livin g Live Births 3 Date Outcome GA Total Labor Labor/2nd/3rd Weight Sex Type Anes PTL Amrita A1 A5 Name Clin Current Last Filed Vital Signs Vital Sign Reading Time Taken Comments Blood Pressure 98/60 01/01/2025 11:29 AM CDT Pulse 67 01/01/2025 11:29 AM CDT Temperature 37.1 C (98.8 F) 10/20/2024 10:38 AM CDT Respiratory Rate 18 01/01/2025 11:29 AM CDT Oxygen Saturation 99% 01/01/2025 11:29 AM CDT Inhaled Oxygen Concentration - - Weight 41.7 kg (92 lb) 01/01/2025 11:29 AM CDT Height 157.5 cm (5' 2) 01/01/2025 11:29 AM CDT Body Mass Index 16.83 01/01/2025 11:29 AM CDT Plan of Treatment Health Maintenance [...] , 1995, 1994 HPV Vaccines Completed 08/02/2007, 11/11/2006, 01/28/2007 Varicella Vaccines Completed 10/13/2008, 06/14/1998 Procedures Procedure Name Priority Date/Time Associated Diagnosis Comments THINPREP TIS PAP REFLEX HPV MRNA E6/E7, CHLAMYDIA/N.GONORRH OEAE Routine 04/14/2016 4:14 PM CUPOLA OPERATOR from Last 3 Months or Most Recently Relevant to Health Maintenance Results * (ABNORMAL) THINPREP TIS PAP REFLEX HPV mRNA E6/E7, CHLAMYDIA/N.GONORRHOEAE (04/14/2016 4:14 PM CUPOLA OPERATOR) SOURCE: SEE NOTE [facility] HISTORICAL RESULTS Comment:Cervix, [...] clinical correlation and follow-up as clinically appropriate Neonatal Nurse Practitioner SEE NOTE [facility] HISTORICAL RESULTS Comment: KMY, CT(ASCP) CT screening location: [address] [place] [address] Review loss control technician SEE NOTE [facility] HISTORICAL RESULTS Comment: MLO, CT(ASCP) CT screening location: [place] [address] [place] [address] Pathologist SEE NOTE [facility] HISTORICAL RESULTS Comment: Kleber Feliz M.D., Board Certified in Anatomic Pathology and Cytopathology. (electronic signature) Test performed at [address] [address] Director: YESSY MOTA MD Infection: SEE NOTE [facility] HISTORICAL RESULTS Comment: Shift in vaginal garcia suggestive of bacterial vaginosis. 04/14/2016 4:14 PM CUPOLA OPERATOR Leslie Johnson MD LAB PATHOLOGY ORDER DOMINGO Final Result [facility] HISTORICAL RESULTS from Last 3 Months or Most Recently Relevant to Health Maintenance Insurance [facility] CHOICE [facility]US [facility] Care Teams Farm Advisor Relationship Specialty Start Date End Date Rudy Hinton MD PCP - General 07/21/16
--- NOTE | 2025-01-09 06:53 | WPDHPUPDATE1 ---
History and Physical Update Update Date/Time: 01/09/25 06:53 History and Physical has been reviewed, including an updated exam of the patient. There are NO changes in the patient's condition. Risks, benefits, and alternatives have been discussed and questions answered. Patient agrees to proceed with procedure.
[2025-01-09] MEDS: ACETAMINOPHEN 500 MG TABLET 1000 MG PO (07:00)
[2025-01-09] MEDS: LACTATED RINGERS 1,000 ML 30 ML IV CONT ×2 (07:00→09:31)
[2025-01-09] MEDS: KETOROLAC 15 MG/ML VIAL (*BKC) IV PUSH (07:00)
--- NOTE | 2025-01-09 07:54 | P.PNAN_ITS ---
Anes - Initial Pre Proc Eval Procedure: Operation Date: 01/09/25 08:30 Proposed Procedures p Laparoscopic Bilateral Salpingectomy - Christian Hernadez MD Date/Time: 01/09/25 07:54 Surgeon: Christian Hernadez MD Pre Op Diagnosis: Desires Sterilization Patient Data Age: 29 Gender: F Height: 1.57 m Weight: 42.1 kg Last Vital Signs Temp 98.1 F 01/09/25 07:34 Pulse 90 01/09/25 07:34 Resp 16 01/09/25 07:34 BP 106/75 01/09/25 07:34 Pulse Ox 100 01/09/25 07:34 O2 Del Method Room Air 01/09/25 07:34 Allergies Allergy/AdvReac Type Severity Reaction Status Date / Time Penicillins AdvReac Mild VOMITING Verified 01/09/25 07:30 Home Medications ?Medication ?Instructions ?Recorded ?Confirmed ?Type bupropion HCl 150 mg 24 hr tablet, 300 mg PO DAILY 04/1401/09/25 History extended release buspirone 15 mg tablet 22.5 mg PO DAILY 08/12/24 History levothyroxine 200 mcg tablet 200 mcg PO DAILY 08/12/24 01/09/25 History hydrocodone 5 mg-acetaminophen 325 1 tablet PO Q4H PRN pain #20 tabs 01/09/25 Rx mg tablet Patient hx anesthesia problems: post op nausea/vomiting Family hx anesthesia problems: none Results Review: All pre-operative results and documents have been reviewed as part of the pre- operative evaluation. REPLACED BY [facility] Past Medical History Medical History Anxiety Bipolar disorder Skin cancer Thyroid cancer Toe fracture Finger fracture Ankle fracture, right Wrist fracture Elbow fracture UTI (urinary tract infection) History of stillbirth At 7.5 weeks, emergency needed but not performed Genital herpes GERD (gastroesophageal reflux disease) Surgical History Surgical History History of removal of skin mole History of thyroidectomy Total, due to thyroid CA Family History Family History Father FH: stomach cancer Drug addiction Alcohol abuse Mother Drug addiction Alcohol abuse Other Adopted Unknown family medical history Social History Social History Smoking packs per day: 0.75 Smoking cigarettes per day: 15.0 Years smoked: 18 Smoking pack-years: 13.50 Smoking status: Current every day smoker Tobacco type: cigarettes Second hand tobacco smoke exposure: Yes Additional smoking assessment comments: Pt has cut down to 0.25 PPD during Alcohol intake: never Substance use: current Substance use type: marijuana Do You Feel Safe in your Home?: Yes Lack of Transportation: No Lack of Food: Never True Current Housing: I Have Housing Concerned About Future Housing: No Difficulty Paying Gas/Electric Bills: No Difficulty Paying for Meds: No Currently Unemployed: No Education: Associate Degree Difficulty w/ Childcare or Family Care: No Living arrangements: alone Gender identity (if verbalized by the patient): Female Sexual Orientation (if Verbalized by the Patient): Straight or Heterosexual Spiritual care concerns: No Anes - Eval Final PreProcedure Day of Procedure 01/09/25 07:54 Patient weight: normal and thin Lungs: normal air movement Airway: Mallampati scale class II and special considerations Neurological: alert and oriented Last oral intake: >/= 8 hours ASA classification: II Emergent: no Anesthetic plan: proceed Anesthesia type and monitoring: general ETT and standard monitoring Results Review: All pre-operative results and documents have been reviewed as part of the pre- operative evaluation. Hypothyroidism, smoker, 1ppd and smoked at 6 am today. Bipolar disorder by hx. Informed Consent: The patient's anesthetic plan and its attendant risks and benefits were discussed with the patient/family/POA. Questions were solicited and answers provided to the satisfaction of the patient/family/POA.
[2025-01-09] MEDS: SCOPOLAMINE 1 MG PATCH 1 PATCH TRANSDERM (08:02)
--- NOTE | 2025-01-09 08:44 | S_PTH ---
PATIENT: Marco Antonio Felix LOC: [facility] U#:[id number] AGE/SX: 29/F ROOM: RE01/09/[address]: Christian Hernadez MD : 1995 BED: DIS: 01/09/2025 SPEC #: [id number] RECD: 01/09/25 09:47 STATUS: KEVEN REQ #: [id number] JUANA: 01/09/25 08:[address]: Christian Collins DEPT: [facility] Surgical RECD BY: Remedios Phillips ENTERED: 01/09/25 09:47 SP TYPE: Surgical OTHR DR: Rudy HintonMD Tissues: A - Fallopian Tube Bilateral Procedures: Gross and Microscopic Level 2 Hematoxylin and Eosin Stain
--- NOTE | 2025-01-09 08:56 | W.PM.PROC2 ---
Procedure Note - Detailed Date of Procedure 01/09/25 Pre-op Diagnosis Desires Sterilization Post-op Diagnosis Same Procedure Performed Laparoscopic bilateral salpingectomy/cautery of endometriosis Surgeon Christian Hernadez MD Anesthesia General Indications 29 year multiparous female desires permanent sterilization who declined non permanent methods Findings Normal-appearing ovaries tubes uterus small endometriosis seen cul-de-sac Description of Procedure Patient was prepped draped in the normal sterile fashion placed in dorsal lithotomy position. Under excellent general trach anesthesia weighted speculum placed in posterior fornix vagina. Anterior lip of the cervix grasped with a single-tooth tenaculum. The Chua's cannula was placed in the cervix and attached to the single-tooth to be used for uterine bladder was then emptied clear urine. Weighted speculum was the gloves were changed and infraumbilical incision Veress needle passed in the abdomen abdomen filled with CO2 gas [id number] the 5mm trocar advanced with the Optiview and no injuries seen. The patient was then placed in Trendelenburg. A suprapubic incision made and the 5mm trocar advanced under direct visualization assuring no injury. A left lower quadrant incision made and the 5mm trocar advanced under direct visualization. Small area of endometriosis was seen in the cul-de-sac on the right and this was cauterized at 35 w per 2nd. The right fallopian tube was grasped and serially using the LigaSure was clamped burned and cut and removed from the left lower quadrant incision. In similar fashion the left fallopian tube was grasped and was sharply dissected using the LigaSure clamping burning and cutting and then removing this through left lower quadrant incision. Hemostasis was assured and the gas removed from the abdomen. Incisions closed with 4-0 Monocryl and glue. The patient was awakened went to recovery in satisfactory condition. All sponge, needle, instrument counts were correct. Were no immediate complications Estimated Blood Loss 5 Drains No Packing No Pathology Yes Complications No immediate complications Condition Stable Disposition PACU
[2025-01-09] MEDS: fentaNYL CITRATE INJ (*CRX) 100 MCG/2 ML VIAL 25 MCG IV PUSH ×2 (09:52→09:59)
[2025-01-09] MEDS: ONDANSETRON INJ 4 MG/2 ML VIAL IV PUSH (10:21)
[2025-01-09] MEDS: oxyCODONE HCL (*CRX) 5 MG TAB IR PO (10:37)
== END 2025-01-09 11:26 | disposition home or self-care (01) ==
PROVIDERS: PCP Internal Medicine; Visit Provider Obstetrics & Gynecology
PROC: (CPT 49320; principal; 2025-01-09 08:30)
DX: Z30.2 Encounter for sterilization (principal); N80.8 Other endometriosis; K21.9 Gastro-esophageal reflux disease without esophagitis; E03.9 Hypothyroidism, unspecified; F41.9 Anxiety disorder, unspecified; F31.9 Bipolar disorder, unspecified; F17.210 Nicotine dependence, cigarettes, uncomplicated; F12.90 Cannabis use, unspecified, uncomplicated; Z98.890 Other specified postprocedural states; Z90.89 Acquired absence of other organs; Z85.828 Personal history of other malignant neoplasm of skin; Z85.850 Personal history of malignant neoplasm of thyroid; Z80.0 Family history of malignant neoplasm of digestive organs
CPT/HCPCS: 58661; 58662; 88302; A9270; J0330; J1100; J1885; J2250; J2405; J2704; J3010; J7030; J7120